=== PATIENT | male | born 1945 | race Hispanic/Latino ===

== ENCOUNTER 2018-02-01 14:50 | Emergency (ER) | payer MEDICARE ==
[~2018-02-01] VITALS: Ht 172.7 cm; Wt 90.7 kg
[~2018-02-01 14:50] MED LIST: ALBUTEROL2.5 MG/3 M INH; CEFDINIR300 MG PO; LACTULOSE10 GM/152 PO; LASIX40 MG PO; LEVAQUIN500 MG PO; LEVOTHYROXINE50 MCG PO; OMEPRAZOLE20 M1 PO; OXYCODONE HCL5 MG PO; PREDNISONE10 MG PO; ROPINIROLE HCL0.5 MG PO; SPIRONOLACTONE100 MG PO; XIFAXAN550 MG PO
== END 2018-02-01 15:50 | disposition short-term general hospital (02) ==
LOC: ER 14:56
DX: M54.9 Dorsalgia, unspecified (principal)

== ENCOUNTER → 2018-11-02 | Emergency (ER) | payer MEDICARE ==
[~2018-11-02] VITALS: Ht 172.7 cm; Wt 90.7 kg
[~2018-11-02] MED LIST changes: +BACTRIM DS TAB1 EACH PO; +CLINDAMYCIN HC300 MG PO; +CLINDAMYCIN PHOS 900MG/ 50ML 50 ML IV STA; +SODIUM CHLORIDE 0.9% 1000ML 1,000 ML IV SCH; +ULTRAM50 MG PO
--- OUTSIDE RECORDS SUMMARY | 2018-11-02 14:59 | XMS REPORT | Clinical Summary ---
Author Author [facility] Address Unknown Phone Unavailable Care Team Providers Care Infrastructure Architect Name Role Phone Ovidio Perez MD PCP Allergies Comments Active Allergy Reactions Severity Noted Date "Goes Crazy" Pregabalin 02/01/2018 Medications End Date Status Medication Sig Dispensed Refills Start Date Active spironolactone Take 100 mg 0 (ALDACTONE) 100 MG tablet by mouth daily. Active rOPINIRole (REQUIP) 2 MG Take 2 mg by 0 tablet mouth 3 (three) times daily. Active levothyroxine (SYNTHROID, Take 50 mcg 0 LEVOTHROID) 50 MCG tablet by mouth Every morning on an empty stomach. Active baclofen (LIORESAL) 10 MG Take 5 mg by 0 tablet mouth 3 (three) times daily as needed . Active lactulose (CHRONULAC) 10 Take 20 g by 0 gram/15 mL (15 mL) mouth 3 solution (three) times daily. Active risedronate (ACTONEL) 150 Take 150 mg 0 MG tablet by mouth every 30 (thirty) days with water on empty stomach, nothing by mouth or lie down for next 30 minutes. . Active tiotropium bromide Inhale 5 mcg 0 (SPIRIVA RESPIMAT) 2.5 by mouth via mcg/actuation Mist inhaler daily as needed . Active fluticasone/salmeterol Inhale by 0 (ADVAIR HFA INHL) mouth via inhaler. Active furosemide (LASIX) 20 MG Take 2 20 tablet 0 tabletIndications: edema tablets (40 9 due to hepatic cirrhosis mg total) by mouth daily. 02/07/2018 Discontinued HYDROcodone-acetaminophen Take 1 tablet 0 (NORCO 10-325) 10-325 mg by mouth per tablet every 6 (six) hours as needed for Pain. 07/22/2018 Discontinued furosemide (LASIX) 20 MG Take 20 mg by 0 tabletIndications: edema mouth 2 (two) due to hepatic cirrhosis times daily. 07/24/2018 Discontinued HYDROcodone-acetaminophen Take 2 80 tablet 0 (NORCO 7.5-325) 7.5-325 tablets by 8 mg per tablet mouth every 6 (six) hours as needed. Max Daily Amount: 8 tablets 07/28/2018 fluconazole (DIFLUCAN) Take 1 tablet 5 tablet 0 200 MG tablet (200 mg 9 total) by mouth daily for 5 days. Active Problems Problem Noted Date Acute exacerbation of chronic obstructive pulmonary disease (COPD) 07/17/2018 LISA on CPAP 07/17/2018 Amputation of left lower extremity below knee 06/14/2015 Tremor 06/14/2015 Cirrhosis of liver without ascites 05/13/2015 Hypothyroidism 05/13/2015 RLS (restless legs syndrome) 05/13/2015 Resolved Problems Problem Noted Date Resolved Date Compression fx, thoracic spine 02/01/2018 07/17/2018 Compression fracture of L3 lumbar vertebra 02/01/2018 07/17/2018 PNA (pneumonia) 02/01/2018 07/17/2018 Encounters Care Team Description Date Type Specialty OfCeline gee MD Ali, MD Wally Leahy Adriana, MD Acute exacerbation of chronic obstructive pulmonary disease (COPD) (HCC) (Primary Dx); Acute congestive heart failure, unspecified heart failure type (HCC) 07/17/2018 [facility] General Internal Medicine - Encounter 07/24/2018 07/17/2018 Orders Only General Internal Medicine 07/16/2018 Travel Virtual, Surgeon PROCEDURE DONE OUTSIDE OR 04/01/2018 Surgery Chaya David 04/01/2018 Anesthesia Event Anson Chowdhury II, MD T12 compression fracture (HCC); Closed compression fracture of third lumbar vertebra, initial encounter (HCC) 04/01/2018 Hospital Encounter Anson Chowdhury II, MD 03/30/2018 Outside Orders Central Scheduling Mercedez Mack PA Closed compression fracture of third lumbar vertebra, initial encounter ([facility]) (Primary Dx); T12 compression fracture (HCC) 03/30/2018 Orders Only Interventional Radiology Anson Chowdhury II, MD Closed compression fracture of third lumbar vertebra, initial encounter ([facility]) (Primary Dx) 03/16/2018 Office Visit Interventional Radiology Antoni Krishnamurthy MD Crooms, MD Nick Estrada, Dulce Dos Santos MD Closed compression fracture of thoracic vertebra, initial encounter ([facility]) (Primary Dx); Closed compression fracture of third lumbar vertebra, initial encounter (HCC); Pneumonia due to infectious organism, unspecified laterality, unspecified part of lung 02/01/2018 [facility] General Internal Medicine - Encounter 02/07/2018 after 11/01/2017 Social History Date Tobacco Use Types Packs/Day Years Used Former Smoker Smokeless Tobacco: Never Used Tobacco Cessation: Counseling Given: No Alcohol Use Drinks/Week oz/Week Comments Yes 2 beers daily Sex Assigned at Date Recorded Not on file Industry Job Start Date Occupation Not on file Not on file Not on file Travel End Travel History Travel Start No recent travel history available. 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 Height 172.7 cm (5' 8") 07/22/2018 7:27 AM CDT Body Mass Index 30.2 Plan of Treatment Not on file Procedures Comments Procedure Name Priority Date/Time Associated Diagnosis RHYTHM STRIP - SCAN 08/08/2018 1:52 PM CDT RHYTHM STRIP - SCAN 07/27/2018 7:10 AM CDT XR CHEST 2 VIEWS STAT 07/23/2018 1:16 PM CDT XR CHEST 1 VIEW Routine 07/22/2018 PORTABLE/BEDSIDE 10:[address] BRAIN WITHOUT IV STAT 07/22/2018 CONTRAST 8:36 PM CDT ECG 12-LEAD Routine 07/22/2018 1:15 PM CDT POCT-GLUCOSE METER Routine 07/22/2018 1:00 PM CDT XR CHEST 1 VIEW MAGDALENA 07/22/2018 PORTABLE/BEDSIDE 10:47 AM CDT POCT-GLUCOSE METER Routine 07/22/2018 8:34 AM CDT CBC W/PLT COUNT & AUTO Routine 07/22/2018 DIFFERENTIAL 4:10 AM CDT BASIC METABOLIC PANEL (7) Routine 07/22/2018 4:10 AM CDT CBC W/PLT COUNT & AUTO Routine 07/22/2018 DIFFERENTIAL 4:10 AM CDT XR CHEST 1 VIEW MAGDALENA 07/21/2018 PORTABLE/BEDSIDE 5:43 PM CDT POCT-GLUCOSE METER Routine 07/21/2018 5:02 PM CDT (CELLAVISION MANUAL DIFF) Routine 07/21/2018 2:12 PM CDT CBC W/PLT COUNT & AUTO Routine 07/21/2018 DIFFERENTIAL 2:12 PM CDT CBC W/PLT COUNT & AUTO Routine 07/21/2018 DIFFERENTIAL 2:12 PM CDT BASIC METABOLIC PANEL (7) Routine 07/21/2018 2:07 PM CDT XR CHEST 1 VIEW STAT 07/21/2018 PORTABLE/BEDSIDE 12:09 PM CDT POCT-GLUCOSE METER Routine 07/21/2018 12:06 PM CDT XR CHEST 1 VIEW STAT 07/21/2018 PORTABLE/BEDSIDE 12:[address] DRAINAGE WITH CHEST Routine 07/20/2018 TUBE INSERTION 11:53 PM CDT XR CHEST PA OR AP 1 VIEW MAGDALENA 07/20/2018 IN DEPT. 7:27 PM CDT XR CHEST PA OR AP 1 VIEW STAT 07/20/2018 IN DEPT. 5:[address] NEEDLE BIOPSY LUNG Routine 07/20/2018 5:16 PM CDT TISSUE EXAM AP Routine 07/20/2018 4:58 PM CDT LACTIC ACID, VENOUS Routine 07/20/2018 1:29 PM CDT AMMONIA Routine 07/20/2018 1:29 PM CDT POCT-GLUCOSE METER Routine 07/20/2018 1:22 PM CDT XR CHEST 1 VIEW STAT 07/20/2018 PORTABLE/BEDSIDE 11:29 AM CDT POCT-GLUCOSE METER Routine 07/20/2018 10:31 AM CDT REPORT OF PROCEDURE - 07/20/2018 ENDOSCOPY SCAN 6:43 AM CDT (CELLAVISION MANUAL DIFF) Routine 07/20/2018 4:19 AM CDT CBC W/PLT COUNT & AUTO Routine 07/20/2018 DIFFERENTIAL 4:19 AM CDT BASIC METABOLIC PANEL (7) Routine 07/20/2018 4:19 AM CDT CBC W/PLT COUNT & AUTO Routine 07/20/2018 DIFFERENTIAL 4:19 AM CDT ECHOCARDIOGRAM REPORT - 07/18/2018 SCAN 9:20 PM CDT 2D ECHO W/ DOPPLER Routine 07/18/2018 (CW/PW/COLOR) 11:16 AM CDT (CELLAVISION MANUAL DIFF) Routine 07/18/2018 3:56 AM CDT CBC W/PLT COUNT & AUTO Routine 07/18/2018 DIFFERENTIAL 3:56 AM CDT TSH/FREE T4 IF INDICATED Routine 07/18/2018 3:56 AM CDT B-TYPE NATRIURETIC FACTOR Routine 07/18/2018 (BNP) 3:56 AM CDT PT/APTT Routine 07/18/2018 3:56 AM CDT CBC W/PLT COUNT & AUTO Routine 07/18/2018 DIFFERENTIAL 3:56 AM CDT MAGNESIUM Routine 07/18/2018 3:56 AM CDT HEMOGLOBIN A1C Routine 07/18/2018 3:56 AM CDT HEPATIC FUNCTION PANEL Routine 07/18/2018 3:56 AM CDT BASIC METABOLIC PANEL (7) Routine 07/18/2018 3:[address] CHEST WITHOUT IV STAT 07/17/2018 CONTRAST 10:01 AM CDT ED ECG INTERPRETATION Routine 07/17/2018 6:35 AM CDT CBC W/PLT COUNT & AUTO STAT 07/17/2018 DIFFERENTIAL 3:55 AM CDT HEPATIC FUNCTION PANEL STAT 07/17/2018 3:55 AM CDT TROPONIN I STAT 07/17/2018 3:55 AM CDT PT/APTT STAT 07/17/2018 3:55 AM CDT CBC W/PLT COUNT & AUTO STAT 07/17/2018 DIFFERENTIAL 3:55 AM CDT B-TYPE NATRIURETIC FACTOR STAT 07/17/2018 (BNP) 3:55 AM CDT BASIC METABOLIC PANEL (7) STAT 07/17/2018 3:55 AM CDT XR CHEST PA OR AP 1 VIEW STAT 07/17/2018 IN DEPT. 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 APPRENTICE [place] Routine 04/01/2018 T12 compression fracture VERTEBROPLASTY/KYPHOPLAST 3:45 PM WATCH REPAIRER APPRENTICE ([facility] Y Closed compression fracture of third lumbar vertebra, initial encounter ([facility]) PROCEDURE DONE OUTSIDE OR 04/01/2018 Compression fracture of 2:00 PM WATCH REPAIRER APPRENTICE lumbosacral spine, sequela Special Needs (PROCEDURE TO BE DONE AT ) BASIC METABOLIC PANEL (7) STAT 04/01/2018 1:55 PM WATCH REPAIRER APPRENTICE CBC W/PLT COUNT & AUTO STAT 04/01/2018 DIFFERENTIAL 1:38 PM WATCH REPAIRER APPRENTICE APTT STAT 04/01/2018 1:38 PM WATCH REPAIRER APPRENTICE PROTHROMBIN TIME/INR STAT 04/01/2018 1:38 PM WATCH REPAIRER APPRENTICE CBC W/PLT COUNT & AUTO STAT 04/01/2018 DIFFERENTIAL 1:38 PM WATCH REPAIRER APPRENTICE ECG 12-LEAD Routine 04/01/2018 11:07 AM WATCH REPAIRER APPRENTICE Procedure Note - Interface, External Ris In - 04/01/2018 11:12 AM WATCH REPAIRER APPRENTICE Ventricula r Rate 65 BPM Atrial Rate 65 BPM P-R Interval 176 ms QRS Duration 106 ms Q-T Interval 450 ms QTC Calculatio n(Bazett) 468 ms P Ashland -22 degrees R Ashland -16 degrees T [place] -36 degrees Normal sinus rhythm with sinus arrhythmia Anterior infarct , age undetermin ed Abnormal ECG No previous ECGs available ECG 12-LEAD Routine 04/01/2018 11:07 AM WATCH REPAIRER APPRENTICE CBC W/PLT COUNT & AUTO Routine 02/06/2018 DIFFERENTIAL 5:09 AM CDT CBC W/PLT COUNT & AUTO Routine 02/06/2018 DIFFERENTIAL 5:09 AM CDT BASIC METABOLIC PANEL (7) Routine 02/06/2018 5:09 AM CDT CBC W/PLT COUNT & AUTO Routine 02/04/2018 DIFFERENTIAL 6:13 PM CDT CBC W/PLT COUNT & AUTO Routine 02/04/2018 DIFFERENTIAL 6:13 PM CDT BASIC METABOLIC PANEL (7) Routine 02/04/2018 6:13 PM CDT CBC W/PLT COUNT & AUTO Routine 02/03/2018 DIFFERENTIAL 4:27 AM CDT CBC W/PLT COUNT & AUTO Routine 02/03/2018 DIFFERENTIAL 4:27 AM CDT BASIC METABOLIC PANEL (7) Routine 02/03/2018 4:27 AM CDT CBC W/PLT COUNT & AUTO Routine 02/02/2018 DIFFERENTIAL 11:36 AM CDT CBC W/PLT COUNT & AUTO Routine 02/02/2018 DIFFERENTIAL 11:36 AM CDT BASIC METABOLIC PANEL (7) Routine 02/02/2018 11:36 AM CDT BLOOD CULTURE STAT 02/01/2018 10:51 PM CDT BLOOD CULTURE STAT 02/01/2018 10:20 PM CDT CBC W/PLT COUNT & AUTO STAT 02/01/2018 DIFFERENTIAL 10:01 PM CDT LIPASE STAT 02/01/2018 10:01 PM CDT HEPATIC FUNCTION PANEL STAT 02/01/2018 10:01 PM CDT CBC W/PLT COUNT & AUTO STAT 02/01/2018 DIFFERENTIAL 10:01 PM CDT BASIC METABOLIC PANEL (7) STAT 02/01/2018 10:[address] SPINE LUMBAR WITHOUT STAT 02/01/2018 IV CONTRAST 8:[address] SPINE THORACIC WITHOUT STAT 02/01/2018 IV CONTRAST 8:58 PM CDT XR SPINE LUMBAR COMPLETE STAT 02/01/2018 MIN 4 VIEWS 6:52 PM CDT after 11/01/2017 Results * RHYTHM STRIP - SCAN (08/08/2018 1:52 PM CDT) Only the most recent of 2 results within the time period is included. Narrative Performed At * XR chest 2 views (07/23/2018 1:16 PM CDT) Specimen Narrative Performed At FINAL REPORT [facility] [employer] INDICATION: SOB COMPARISON: July 22, 2018 TECHNIQUE: Frontal and lateral views of the chest. IMPRESSION: Lungs and pleura: Decreasing conspicuity of patchy airspace disease bilaterally. No effusion. Heart and mediastinum: Normal heart size. Unremarkable mediastinal contours. Osseous structures: No acute abnormality. Additional findings: Stable TIPS. Unchanged right PICC. Signed: JR King Robert MD Report Verified Date/Time:07/23/2018 13:21:07 Reading Location: [address] Neuro Reading Room Procedure Note Interface, External Ris In - 07/23/2018 1:23 PM CDT FINAL REPORT INDICATION: SOB COMPARISON: July 22, 2018 TECHNIQUE: Frontal and lateral views of the chest. IMPRESSION: Lungs and pleura: Decreasing conspicuity of patchy airspace disease bilaterally. No effusion. Heart and mediastinum: Normal heart size. Unremarkable mediastinal contours. Osseous structures: No acute abnormality. Additional findings: Stable TIPS. Unchanged right PICC. Signed: JR King Robert MD Report Verified Date/Time: 07/23/2018 13:21:07 Reading Location: [address] Neuro Reading Room Performing Organization Address City/State/Zipcode Phone Number [facility] * XR chest 1 view portable / bedside (07/22/2018 10:12 PM CDT) Only the most recent of 6 results within the time period is included. Specimen Narrative Performed At FINAL REPORT [employer] Portable chest. HISTORY: Pneumothorax. COMPARISON STUDY: July 22, 2018. FINDINGS: The cardiac silhouette is enlarged. There are extensive bilateral airspace opacities, most dense in the right upper lung field more pronounced on previous. Blunting of the left costophrenic angle is seen. A right-sided PICC line remains. Degenerative changes are noted. A TIPS shunt is seen. IMPRESSION: Progression of pulmonary opacities, either related to CHF or pneumonia. No pneumothorax seen. Signed: Noe Hall MD Report Verified Date/Time:07/22/2018 23:28:09 Reading Location: [facility] C013 Consult Reading Room Procedure Note Interface, External Ris In - 07/22/2018 11:30 PM CDT FINAL REPORT Portable chest. HISTORY: Pneumothorax. COMPARISON STUDY: July 22, 2018. FINDINGS: The cardiac silhouette is enlarged. There are extensive bilateral airspace opacities, most dense in the right upper lung field more pronounced on previous. Blunting of the left costophrenic angle is seen. A right-sided PICC line remains. Degenerative changes are noted. A TIPS shunt is seen. IMPRESSION: Progression of pulmonary opacities, either related to CHF or pneumonia. No pneumothorax seen. Signed: Noe Hall MD Report Verified Date/Time: 07/22/2018 23:28:09 Reading Location: [facility] C013 Consult Reading Room Performing Organization Address City/State/Zipcode Phone Number [employer] * CT brain without IV contrast (07/22/2018 8:36 PM CDT) Specimen Narrative Performed At FINAL REPORT [facility] CT, BRAIN, WITHOUT CONTRAST CLINICAL INDICATION:Confusion/delirium, altered LOC, unexplained COMPARISON: None TECHNIQUE:Noncontrast axial CT imaging of the brain and skull. DOSE REDUCTION: Dose modulation, iterative reconstruction, and/or weight-based adjustment of the mA/kV was utilized to reduce the radiation dose to as low as reasonably achievable. FINDINGS: No intracranial hemorrhage, midline shift or mass effect. Midline structures are normally developed. Mild chronic microvascular ischemic changes of the periventricular and subcortical white matter are present. No hydrocephalus. Prior right lens surgery. Marked left enophthalmos due to increased intraorbital volume related to prior maxillofacial surgery. Plate fixation of the left orbital floor and left lateral orbital wall. Remote fracture of the left zygomatic arch. Cystic lesion at the left anterior zygoma abutting the anterior wall of left maxillary sinus, possibly representing a posttraumatic mucocele status post maxillary repair. Soft tissue lesion cannot be excluded, however, is favored to be less likely. The left intraorbital canal is not well evaluated secondary to the plate reconstruction. IMPRESSION: No acute intracranial findings. Remote reconstruction of the left orbital floor and left lateral orbital wall, favored to be posttraumatic given concomitant remote left zygomatic arch fracture. Cystic lesion at the anterior margin of the zygoma may represent a posttraumatic mucocele status post repair of the orbital floor defect. Soft tissue lesion cannot be definitively excluded, however, is favored to be less likely. Correlation with prior imaging (and history of prior trauma versus prior malignancy) is suggested. Left enophthalmos due to above postsurgical changes with consequent increased intraorbital volume on the left. If there is persistent clinical concern for intracranial pathology, MR examination is recommended for further characterization. Signed: Cheng Baxter MD Report Verified Date/Time:07/22/2018 20:46:26 Reading Location: [facility] Radiology Reading Room Procedure Note Interface, External Ris In - 07/22/2018 8:[address] FINAL REPORT CT, BRAIN, WITHOUT CONTRAST CLINICAL INDICATION: Confusion/delirium, altered LOC, unexplained COMPARISON: None TECHNIQUE: Noncontrast axial CT imaging of the brain and skull. DOSE REDUCTION: Dose modulation, iterative reconstruction, and/or weight-based adjustment of the mA/kV was utilized to reduce the radiation dose to as low as reasonably achievable. FINDINGS: No intracranial hemorrhage, midline shift or mass effect. Midline structures are normally developed. Mild chronic microvascular ischemic changes of the periventricular and subcortical white matter are present. No hydrocephalus. Prior right lens surgery. Marked left enophthalmos due to increased intraorbital volume related to prior maxillofacial surgery. Plate fixation of the left orbital floor and left lateral orbital wall. Remote fracture of the left zygomatic arch. Cystic lesion at the left anterior zygoma abutting the anterior wall of left maxillary sinus, possibly representing a posttraumatic mucocele status post maxillary repair. Soft tissue lesion cannot be excluded, however, is favored to be less likely. The left intraorbital canal is not well evaluated secondary to the plate reconstruction. IMPRESSION: No acute intracranial findings. Remote reconstruction of the left orbital floor and left lateral orbital wall, favored to be posttraumatic given concomitant remote left zygomatic arch fracture. Cystic lesion at the anterior margin of the zygoma may represent a posttraumatic mucocele status post repair of the orbital floor defect. Soft tissue lesion cannot be definitively excluded, however, is favored to be less likely. Correlation with prior imaging (and history of prior trauma versus prior malignancy) is suggested. Left enophthalmos due to above postsurgical changes with consequent increased intraorbital volume on the left. If there is persistent clinical concern for intracranial pathology, MR examination is recommended for further characterization. Signed: Cheng Baxter MD Report Verified Date/Time: 07/22/2018 20:46:26 Reading Location: [facility] Radiology Reading Room Performing Organization Address City/State/Zipcode Phone Number [facility] * ECG 12 lead (07/22/2018 1:15 PM CDT) Only the most recent of 4 results within the time period is included. Specimen Narrative Performed At Ventricular Rate 101 BPM [facility] Atrial Rate 101 BPM P-R Interval 162 ms QRS Duration 100 ms Q-T Interval 376 ms QTC Calculation(Bazett) 487 ms P Ash[place] 5 degrees R Ash[place] -11 degrees T Ash[place] 9 degrees Sinus tachycardia Incomplete right bundle branch block Poor R wave progression Nonspecific T wave abnormality Prolonged QT Abnormal ECG When compared with ECG of 17-JUL-2018 03:13, Vent. rate has increased BY39 BPM Poor R wave progression now seen T wave inversion less evident in Anterior leads Confirmed by MD PHONG, [facility] ([id number]) on 07/25/2018 6:33:06 AM Procedure Note Interface, External Ris In - 07/25/2018 6:33 AM CDT Ventricular Rate 101 BPM Atrial Rate 101 BPM P-R Interval 162 ms QRS Duration 100 ms Q-T Interval 376 ms QTC Calculation(Bazett) 487 ms P [place] 5 degrees R [place] -11 degrees T [place] 9 degrees Sinus tachycardia Incomplete right bundle branch block Poor R wave progression Nonspecific T wave abnormality Prolonged QT Abnormal ECG When compared with ECG of 17-JUL-2018 03:13, Vent. rate has increased BY 39 BPM Poor R wave progression now seen T wave inversion less evident in Anterior leads Confirmed by MD PHONG, HEIDI ([id number]) on 07/25/2018 6:33:06 AM Performing Organization Address City/State/Zipcode Phone Number [facility] * POC-Glucose meter (07/22/2018 1:00 PM CDT) Only the most recent of 6 results within the time period is included. POC-Glucose Meter 106Comment: TESTED AT [facility] 70 - 110 mg/dL [address] Specimen Blood Performing Organization Address [facility] [place] [address] [facility] * CBC with platelet count + automated diff (07/22/2018 4:10 AM CDT) Only the most recent of 11 results within the time period is included. WBC 16.3 (H) 3.5 - 10.5 K/L [facility] RBC 4.06 (L) 4.63 - 6.08 M/L [facility] Hemoglobin 14.5 13.7 - 17.5 GM/DL [facility] Hematocrit 43.1 40.1 - 51.0 % [facility] MCV 106.2 (H) 79.0 - 92.2 fL [facility] MCH 35.7 (H) 25.7 - 32.2 pg [facility] MCHC 33.6 32.3 - 36.5 GM/DL [facility] RDW 13.7 11.6 - 14.4 % [facility] Platelets 127 (L) 150 - 450 K/CU MM [facility] MPV 11.3 9.4 - 12.4 fL [facility] nRBC 0 0 - 0 /100 WBC [facility] % Neutros 73 % [facility] % Lymphs 14 % [facility] % Monos 11 % [facility] % Eos 0 % [facility] % Baso 0 % [facility] # Neutros 11.85 (H) 1.78 - 5.38 K/L [facility] # Lymphs 2.24 1.32 - 3.57 K/L [facility] # Monos 1.85 (H) 0.30 - 0.82 K/L [facility] # Eos 0.03 (L) 0.04 - 0.54 K/L [facility] # Baso 0.06 0.01 - 0.08 K/L [facility] Immature 1 0 - 1 % [facility] Granulocytes-[facility] Specimen Blood Performing Organization Address City/State/Zipcode Phone Number [facility] [address] [place] [address] [facility] * Basic Metabolic Panel (07/22/2018 4:10 AM CDT) Only the most recent of 11 results within the time period is included. Sodium 132 (L) 136 - 145 meq/L [facility] Potassium 4.1 3.5 - 5.1 meq/L [facility] Chloride 102 98 - 107 meq/L [facility] CO2 22 22 - 29 meq/L [facility] BUN 17 7 - 21 mg/dL [facility] Creatinine 0.84 0.57 - 1.25 mg/dL [facility] Glucose 144 (H) 70 - 105 mg/dL [facility] Calcium 7.9 (L) 8.4 - 10.2 mg/dL [facility] EGFR 89Comment: ESTIMATED GFR IS mL/min/1.73 sq m [facility] NOT ACCURATE CREATININE [facility] CLEARANCE IN PREDICTING GLOMERULAR FILTRATION RATE. ESTIMATED GFR IS NOT APPLICABLE FOR DIALYSIS PATIENTS. Specimen Blood Narrative Performed At Specimen slightly icteric [facility] Performing Organization Address City/State/Zipcode Phone Number [facility] [address] [place] [address] MED[facility] * Manual Differential (07/21/2018 2:12 PM CDT) Only the most recent of 3 results within the time period is included. % Neutros 87 % [facility] % Lymphs 5 % [facility] [facility] % Monos 6 % [facility] % Atypical Lymphs 1 (H) 0 - 0 % [facility] # Neutros 17.23 (H) 1.78 - 5.38 K/ul [facility] # Lymphs 0.99 (L) 1.32 - 3.57 K/ul [facility] # Monos 1.19 (H) 0.30 - 0.82 K/uL [facility] # Atypical Lymphs 0.20 (H) 0.00 - 0.00 K/uL [facility] Total Counted 100 [facility] Giant Platelet Present [facility] Hypersegmented Present [facility] Anisocytosis 3+ many [facility] Macrocytes 3+ many [facility] Poikilocytes 1+ few [facility] Ovalocytes 1+ few [facility] Artifact Present [facility] Platelet Conc Adequate [facility] Specimen Blood Narrative Performed At Received comment: [facility] User comments: [facility] Slide comments: Performing Organization Address City/State/Zipcode Phone Number [facility] [address] [place] [address] MEDICAL [facility]ENTER * CT drainage with chest tube insertion (07/20/2018 11:53 PM CDT) Specimen Narrative Performed At FINAL REPORT [employer] PROCEDURE: Right chest tube insertion. Dose modulation, iterative reconstruction, and/or weight-based adjustment of the mA/kV was utilized to reduce the radiation dose to as low as reasonably achievable. INDICATION: Enlarging pneumothorax after lung biopsy. COMPARISON: CT for biopsy from 07/17/2018. SEDATION: None. MEDICATIONS: None DESCRIPTION: After obtaining informed written consent, the patient was brought to the procedure room and placed in the supine position. Preliminary CT scan revealed a moderate size right pneumothorax. A clear path for chest tube insertion was identified. The overlying skin was prepped and draped in the usual, sterile fashion and local 1% lidocaine anesthesia was administered. Under CT guidance, a 19-gauge introducer needle was placed into the right hemithorax. Air was aspirated. A wire was introduced into the pleural cavity, and after dilation with an 8 Botswanan dilator, an 8 Botswanan catheter was inserted into the pleural cavity. The catheter was affixed to the skin and connected to wall suction. Post procedure scan showed no immediate complications. The chest radiograph after placement was obtained since the patient was having pain. The right pneumothorax has near completely resolved. The right upper lobe mass is again seen. The cardiac silhouette is unchanged. No acute bony abnormality. TIPS in the right upper quadrant. IMPRESSION: Successful placement of a right chest pigtail pleural catheter. The chest radiograph after placement of the pigtail pleural catheter has only minimal residual right pneumothorax. Signed: Monico Bee MD Report Verified Date/Time:07/21/2018 00:43:30 Reading Location: [facility] B1 C013W Consult Reading Room Procedure Note Interface, External Ris In - 07/21/2018 12:54 AM CDT FINAL REPORT PROCEDURE: Right chest tube insertion. Dose modulation, iterative reconstruction, and/or weight-based adjustment of the mA/kV was utilized to reduce the radiation dose to as low as reasonably achievable. INDICATION: Enlarging pneumothorax after lung biopsy. COMPARISON: CT for biopsy from 07/17/2018. SEDATION: None. MEDICATIONS: None DESCRIPTION: After obtaining informed written consent, the patient was brought to the procedure room and placed in the supine position. Preliminary CT scan revealed a moderate size right pneumothorax. A clear path for chest tube insertion was identified. The overlying skin was prepped and draped in the usual, sterile fashion and local 1% lidocaine anesthesia was administered. Under CT guidance, a 19-gauge introducer needle was placed into the right hemithorax. Air was aspirated. A wire was introduced into the pleural cavity, and after dilation with an 8 Botswanan dilator, an 8 Botswanan catheter was inserted into the pleural cavity. The catheter was affixed to the skin and connected to wall suction. Post procedure scan showed no immediate complications. The chest radiograph after placement was obtained since the patient was having pain. The right pneumothorax has near completely resolved. The right upper lobe mass is again seen. The cardiac silhouette is unchanged. No acute bony abnormality. TIPS in the right upper quadrant. IMPRESSION: Successful placement of a right chest pigtail pleural catheter. The chest radiograph after placement of the pigtail pleural catheter has only minimal residual right pneumothorax. Signed: Monico Bee MD Report Verified Date/Time: 07/21/2018 00:43:30 Reading Location: [address] Consult Reading Room Performing Organization Address City/State/Zipcode Phone Number [facility] * XR chest PA or AP 1 view in dept (07/20/2018 7:27 PM CDT) Only the most recent of 3 results within the time period is included. Specimen Narrative Performed At FINAL REPORT [facility] [employer] Chest, one view. HISTORY: Post Lung Biopsy COMPARISON: Radiograph from 07/20/2018 IMPRESSION: The right pneumothorax has significantly increased in size. However, it is still small volume. The patient is being brought down for placement of a chest tube. The right upper lung nodule is unchanged. TIPS in place. The cardiac silhouette is unchanged. No acute bony abnormality. Signed: Monico Bee MD Report Verified Date/Time:07/20/2018 19:55:59 Reading Location: [address] Consult Reading Room Procedure Note Interface, External Ris In - 07/20/2018 7:58 PM CDT FINAL REPORT Chest, one view. HISTORY: Post Lung Biopsy COMPARISON: Radiograph from 07/20/2018 IMPRESSION: The right pneumothorax has significantly increased in size. However, it is still small volume. The patient is being brought down for placement of a chest tube. The right upper lung nodule is unchanged. TIPS in place. The cardiac silhouette is unchanged. No acute bony abnormality. Signed: Monico Bee MD Report Verified Date/Time: 07/20/2018 19:55:59 Reading Location: [address] Consult Reading Room Performing Organization Address City/State/Zipcode Phone Number [employer] * CT biopsy lung (07/20/2018 5:16 PM CDT) Specimen Narrative Performed At FINAL REPORT [employer] CT-guided core biopsy dated 07/20/2018 Name of practitioner performing procedure: Nick Gonsales M.D. Names of photographer's assistant: None Procedure: Core biopsy of the right upper lobe mass Preprocedure diagnosis: Right upper lobe mass Postprocedure diagnosis: Right upper lobe mass Specimens removed: Right upper lobe mass Estimated blood loss: Minimal Complication: Tiny right apical pneumothorax. Sequential chest examinations has been ordered. Conscious sedation: 1 mg Versed and [address] Nick Gonsales was responsible for the moderate sedation. Total sedation time: 20 minutes Anesthesia: 1% Xylocaine local anesthesia. Graft/Implants: None Technique: This exam was performed according to our departmental dose-optimization program, which includes automated exposure control, adjustment of the mA and/or kV according to patient size and/or use of interactive reconstruction technique. After obtaining informed consent, CT-guided core biopsy of the right upper lobe mass was performed under usual sterile technique. After placing a 19-gauge coaxial needle adjacent to the mass, core biopsy was performed with a 20-gauge core needle with 4 passes. Impression: CT-guided core biopsy of the right upper lobe mass. Signed: Nick Gonsales MD Report Verified Date/Time:07/20/2018 18:11:12 Reading Location: [facility] B1 C013Y CT Body Reading Room Procedure Note Interface, External Ris In - 07/20/2018 6:13 PM CDT FINAL REPORT CT-guided core biopsy dated 07/20/2018 Name of practitioner performing procedure: Nick Gonsales M.D. Names of photographer's assistant: None Procedure: Core biopsy of the right upper lobe mass Preprocedure diagnosis: Right upper lobe mass Postprocedure diagnosis: Right upper lobe mass Specimens removed: Right upper lobe mass Estimated blood loss: Minimal Complication: Tiny right apical pneumothorax. Sequential chest examinations has been ordered. Conscious sedation: 1 mg Versed and [address] Nick Gonsales was responsible for the moderate sedation. Total sedation time: 20 minutes Anesthesia: 1% Xylocaine local anesthesia. Graft/Implants: None Technique: This exam was performed according to our departmental dose-optimization program, which includes automated exposure control, adjustment of the mA and/or kV according to patient size and/or use of interactive reconstruction technique. After obtaining informed consent, CT-guided core biopsy of the right upper lobe mass was performed under usual sterile technique. After placing a 19-gauge coaxial needle adjacent to the mass, core biopsy was performed with a 20-gauge core needle with 4 passes. Impression: CT-guided core biopsy of the right upper lobe mass. Signed: Nick Gonsales MD Report Verified Date/Time: 07/20/2018 18:11:12 Reading Location: [facility] B1 C013Y CT Body Reading Room Performing Organization Address City/State/Zipcode Phone Number [facility] * Tissue Exam (07/20/2018 4:58 PM CDT) Case Report Surgical Pathology [facility] Report [facility] Case: [id number] Authorizing Provider:Janeth Skaggs MD Collected: 07/20/2018 9100 Ordering Location: [address] Received: 07/20/2018 3597 Cardiovascular Pathologist: Wilbur Najera MD Specimen:Lung, Right Upper Lobe DIAGNOSIS A. LUNG, RIGHT UPPER LOBE, CT [facility] GUIDED NEEDLE CORE BIOPSY: [facility] - ACUTE BRONCHOPNEUMONIA AND ABSCESS FORMATION (SEE COMMENT) - SUSPICIOUS FOR FUNGAL INFECTION - NEGATIVE FOR MALIGNANCY Signing Pathologist Direct Phone Line: [phone] COMMENT Section shows a single [facility] fragment of alveolated lung [facility] parenchyma with detached foci of fibrinopurulent exudate. The alveolar pneumocytes are replaced by ciliated bronchial type lining epithelium. No granulomas or malignancy is identified. Special stain for GMS shows fungal hyphal elements. The exact species cannot be definitively determined on histology but differentials include taco, aspergillus, rhizopus, mucor amongst others. AFB stain is negative for acid-fast micro-organisms. Correlation with cultures and serology is recommended. CPT Code(s) 26868 [facility] [id number] [facility] CLINICAL HISTORY None given [facility] SPECIMEN SOURCE Right upper lobe lung biopsy [facility] GROSS DESCRIPTION The specimen is received in a [facility] formalin-filled container [facility] labeled with the patient's information and labeled "right upper lobe lung" and consists of five whittaker core biopsies ranging in length from 0.1 to 0.5 cm, submitted entirely in A1. CG/ew MICROSCOPIC DESCRIPTION Performed. [facility] SPECIAL STUDIES The interpretation of this [facility] case included the use of [facility] immunohistochemistry or special stains. Immunohistochemistry technical testing was performed at [facility] Path[facility] where it was developed and its performance characteristics were determined. It has not been cleared or approved by the U.S. Food and Drug Administration. The FDA has determined that such clearance or approval is not necessary. The test is used for clinical purposes. It should not be regarded as investigational or for research. This laboratory is certified under the Clinical Laboratory Improvement Amendments of 1988 (CLIA-88) as qualified to perform high complexity clinical laboratory testing. Specimen Tissue Performing Organization Address City/State/Zipcode Phone Number [facility] [address] [place] [address] [facility] * Lactic acid, venous (07/20/2018 1:29 PM CDT) Lactate, Venous 1.4Comment: Specimen slightly 0.5 - 2.2 mmol/L [facility] hemolyzed [facility] Specimen Blood Narrative Performed At Specimen slightly icteric [facility] Performing Organization Address City/State/Zipcode Phone Number [facility] [address] [place] [address], [place] [address] [phone] * Ammonia (07/20/2018 1:29 PM CDT) Ammonia 89 (H) 18 - 72 mol/L [facility] Specimen Blood Performing Organization Address City/[facility]/Zipcode Phone Number [facility] [address] [phone] * EKG-SCANNED (07/20/2018 6:43 AM CDT) Narrative Performed At * ECHOCARDIOGRAM REPORT - SCAN (07/18/2018 9:20 PM CDT) Narrative Performed At * 2D Echo W/Doppler(CW/PW/Color) (07/18/2018 11:16 AM CDT) Ejection Fraction [facility] ECHO [facility]ART[facility] Specimen Narrative Performed At Transthoracic Echocardiography Report (TTE) [facility] ECHO [facility]ARTLAB Demographics [facility] Patient NameAMANUEL NEIL Date of Study07/18/2018 Gender Male Visit [id number] Race [id number] Number Date of 1945 Referring PhysicianSherri Lo Age 72 year(s) SonographEvita Osorio [facility] Interpreting Adal Chin MD Physician Procedure Type of Study TTE procedure:2DECHO W DOPPLER(CW/PW/COLOR) (Routine) Indications:Shortness of breath. Clinical History HGB 13.8 HCT 41.0 % L. BKA, CIRRHOSIS, COPD, HEPATIC ENCEPHALOPATHY, HCV, HYPOTHYROID, COPD, LISA-CPAP Height: 68 inches Weight: 99.34 kg (219 lbs) BSA: 2.12 m^2 BMI: 33.3 kg/m^2 HR: 65 bpm BP: 126/68 mmHg Summary Normal left ventricular chamber size. Normal wall thickness. Normal overall left ventricular systolic function. No apparent segmental wall motion abnormalities. Estimated LVEF by qualitative assessment is normal (>60%) . Grade 1 diastolic dysfunction (impaired relaxation and low-normal LA pressure). RV chamber size is moderately enlarged . Global RV systolic function is depressed . Unable to estimate peak systolic PA pressure; inadequate TR velocity signal. Signature Findings Left Ventricle Normal left ventricular chamber size. Normal wall thickness. Normal overall left ventricular systolic function. No apparent segmental wall motion abnormalities. Estimated LVEF by qualitative assessment is normal (>60%) . Grade 1 diastolic dysfunction (impaired relaxation and low-normal LA pressure). Left AtriumLA size is moderately enlarged (42-48 ml/m2) . Right VentricleRV chamber size is moderately enlarged . Global RV systolic function is depressed . Right Atrium RA size is moderately dilated. Aortic Valve Mild AoV cusp thickening. Mitral Valve Mild MV leaflet thickening. Mild mitral annular calcification. Tricuspid ValveTV structure is normal. Unable to estimate peak systolic PA pressure; inadequate TR velocity signal. Pulmonic Valve PV is not well visualized; function appears normal by Doppler visualized. AortaAortic root size (SInus of Valsalva diameter) is normal . PericardiumNo pericardial effusion is visualized. IVC/SVC/PA/PV/PleuralThe estimated RA pressure by IVC dynamics 5-10mmHg . Chambers/Structures Left Atrium LA Volume: 100.52 mlLA Area: 29.15 cm^2 LA Vol. Index: 47 ml/m^2 Left Ventricle LVIDd: 5.24 cm LVIDs: 3.29 cm LV Septum Diastolic: 0.98 cm LV PW Diastolic: 1.04 cm LV FS: 37.2 % LVOT Diameter: 2 cm Aorta Ao Root S of Chiquita.: 3.56 cm Doppler/Quantitative Measurements LVOT Peak Velocity: 1.35 m/s Peak Gradient: 7.33 mmHg Mean Velocity: 0.74 m/s Mean Gradient: 2.74 mmHg LVOT Diameter: 2 cm LVOT VTI: 24.7 cm LVOT Area: 3.14 cm^2LVOT SV:77.56 ml LVOT CO: 5.04 l/min LVOT CI: 2.38 l/min/m^2 Procedure Note Interface, External Ris In - 07/18/2018 3:02 PM CDT Transthoracic Echocardiography Report (TTE) Demographics Patient Name AMANUEL NEIL Date of Study 07/18/2018 Gender Male Visit Number [id number] Race Room Number C625-2 Number Date of 1945 Referring Physician Sherri Lo Age 72 year(s) 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 Clinical History HGB 13.8 HCT 41.0 % L. BKA, CIRRHOSIS, COPD, HEPATIC ENCEPHALOPATHY, HCV, HYPOTHYROID, COPD, LISA-CPAP Height: 68 inches Weight: 99.34 kg (219 lbs) BSA: 2.12 m^2 BMI: 33.3 kg/m^2 HR: 65 bpm BP: 126/68 mmHg Summary Normal left ventricular chamber size. Normal wall thickness. Normal overall left ventricular systolic function. No apparent segmental wall motion abnormalities. Estimated LVEF by qualitative assessment is normal (>60%) . Grade 1 diastolic dysfunction (impaired relaxation and low-normal LA pressure). RV chamber size is moderately enlarged . Global RV systolic function is depressed . Unable to estimate peak systolic PA pressure; inadequate TR velocity signal. Signature Findings Left Ventricle Normal left ventricular chamber size. Normal wall thickness. Normal overall left ventricular systolic function. No apparent segmental wall motion abnormalities. Estimated LVEF by qualitative assessment is normal (>60%) . Grade 1 diastolic dysfunction (impaired relaxation and low-normal LA pressure). Left Atrium LA size is moderately enlarged (42-48 ml/m2) . Right Ventricle RV chamber size is moderately enlarged . Global RV systolic function is depressed . Right Atrium RA size is moderately dilated. Aortic Valve Mild AoV cusp thickening. Mitral Valve Mild MV leaflet thickening. Mild mitral annular calcification. Tricuspid Valve TV structure is normal. Unable to estimate peak systolic PA pressure; inadequate TR velocity signal. Pulmonic Valve PV is not well visualized; function appears normal by Doppler visualized. Aorta Aortic root size (SInus of Valsalva diameter) is normal . Pericardium No pericardial effusion is visualized. IVC/SVC/PA/PV/Pleural The estimated RA pressure by IVC dynamics 5-10mmHg . Chambers/Structures Left Atrium LA Volume: 100.52 ml LA Area: 29.15 cm^2 LA Vol. Index: 47 ml/m^2 Left Ventricle LVIDd: 5.24 cm LVIDs: 3.29 cm LV Septum Diastolic: 0.98 cm LV PW Diastolic: 1.04 cm LV FS: 37.2 % LVOT Diameter: 2 cm Aorta Ao Root S of Chiquita.: 3.56 cm Doppler/Quantitative Measurements LVOT Peak Velocity: 1.35 m/s Peak Gradient: 7.33 mmHg Mean Velocity: 0.74 m/s Mean Gradient: 2.74 mmHg LVOT Diameter: 2 cm LVOT VTI: 24.7 cm LVOT Area: 3.14 cm^2 LVOT SV:77.56 ml LVOT CO: 5.04 l/min LVOT CI: 2.38 l/min/m^2 Performing Organization Address City/State/Zipcode Phone Number [facility] * TSH/Free T4 If Indicated (07/18/2018 3:56 AM CDT) TSH 0.49 0.35 - 4.94 uIU/mL [facility] Specimen Blood Performing Organization Address [facility] Cent[facility] Phone Number [address] [address] [facility] * PT/aPTT (07/18/2018 3:56 AM CDT) Only the most recent of 2 results within the time period is included. Protime 18.1 (H) 11.7 - 14.7 seconds [facility] INR 1.5 <=5.9 [facility] PTT 34.3 22.5 - 36.0 seconds [facility] Specimen Blood Narrative Performed At RECOMMENDED COUMADIN/WARFARIN INR THERAPY RANGES [facility] STANDARD DOSE: 2.0 - 3.0 Includes: PROPHYLAXIS for venous thrombosis, [facility] systemic embolization; TREATMENT for venous thrombosis and/or pulmonary embolus. HIGH RISK: Target INR is 2.5-3.5 for patients with mechanical heart valves. Performing Organization Address [facility] [place] [address] [phone] [place] [address] * B-type Natriuretic Factor (BNP) (07/18/2018 3:56 AM CDT) Only the most recent of 2 results within the time period is included. BNP 214 (H) 0 - 100 pg/mL [facility] Specimen Blood Performing Organization Address City/[facility] Centercode Phone Number [address] [address] [facility] * Magnesium (07/18/2018 3:56 AM CDT) Magnesium 2.1 1.6 - 2.6 mg/dL [facility] Specimen Blood Performing Organization Address [facility] Cent[facility]ode Phone Number [address] [address] [facility] * Hemoglobin A1c (07/18/2018 3:56 AM CDT) Hemoglobin A1C 5.0 4.3 - 6.1 % [facility] Specimen Blood Performing Organization Address City/State/Zipcode Phone Number [facility] [address] [place] [address] * Hepatic function panel (07/18/2018 3:56 AM CDT) Only the most recent of 3 results within the time period is included. Protein, Total 6.5 6.0 - 8.3 gm/dL [facility] Albumin 3.0 (L) 3.5 - 5.0 g/dL [facility] Total Bilirubin 1.7 (H) 0.2 - 1.2 mg/dL [facility] Bilirubin, Direct 0.9 (H) 0.1 - 0.5 mg/dL [facility] Alkaline Phosphatase 158 (H) 40 - 150 U/L [facility] AST 18 5 - 34 U/L [facility] ALT 30 6 - 55 U/L [facility] Specimen Blood Performing Organization Address City/State/Zipcode Phone Number [facility] [address] [place] [address] [facility] * CT chest without IV contrast (07/17/2018 10:01 AM CDT) Specimen Narrative Performed At FINAL REPORT [facility] INDICATION: Shortness of breath, suspect cardiac origin. COMPARISON: Chest radiograph July 17, 2018 TECHNIQUE: Chest CT exam WITHOUT intravenous contrast. The exam was performed according to our department dose-optimization protocol, which includes automated exposure control, adjustments of mA and kV according to patient size. Iterative reconstructions are also sometimes employed. FINDINGS: In the right upper lobe there is a part solid and part groundglass nodule with an irregular margin. It measures 2.8 x 2.4 cm and anterior and superior to the nodule is groundglass opacity which may represent a lepidic growth. Groundglass nodular opacity in the left upper lobe is also noted. There is cardiomegaly with the left atrium AP dimension measuring 5.1 cm. The pulmonary arteries are enlarged. Main pulmonary artery measures 3.7 cm in diameter, which compares to the ascending thoracic aorta which measures 3.6 cm in diameter. No mediastinal or hilar lymphadenopathy is demonstrated. Central airways are clear. There is no pleural effusion. Esophagus unremarkable. Intrahepatic portosystemic shunt, cirrhosis, and gallstones noted. Osseous structures are notable for diffuse osteopenia and seem and augmentation of moderate compression fracture of the L1 vertebral body. IMPRESSION: Right upper lobe 2.8 cm subsolid nodule with irregular margin, suspicious for lung cancer especially if the patient does not have symptoms of pneumonia. Adjacent groundglass opacity may represent lepidic growth. Left upper lobe groundglass opacity may also represent neoplasm. Considered less likely is inflammatory etiology (sarcoidosis). PET/CT may provide additional diagnostic information. Image guided percutaneous biopsy might also be considered. Cardiomegaly and enlarged pulmonary arteries, indicating pulmonary artery hypertension. Signed: Magan Cardona MD Report Verified Date/Time:07/17/2018 10:36:26 Reading Location: [address] Ortho Consult Reading Room Procedure Note Interface, External Ris In - 07/17/2018 10:38 AM CDT FINAL REPORT INDICATION: Shortness of breath, suspect cardiac origin. COMPARISON: Chest radiograph July 17, 2018 TECHNIQUE: Chest CT exam WITHOUT intravenous contrast. The exam was performed according to our department dose-optimization protocol, which includes automated exposure control, adjustments of mA and kV according to patient size. Iterative reconstructions are also sometimes employed. FINDINGS: In the right upper lobe there is a part solid and part groundglass nodule with an irregular margin. It measures 2.8 x 2.4 cm and anterior and superior to the nodule is groundglass opacity which may represent a lepidic growth. Groundglass nodular opacity in the left upper lobe is also noted. There is cardiomegaly with the left atrium AP dimension measuring 5.1 cm. The pulmonary arteries are enlarged. Main pulmonary artery measures 3.7 cm in diameter, which compares to the ascending thoracic aorta which measures 3.6 cm in diameter. No mediastinal or hilar lymphadenopathy is demonstrated. Central airways are clear. There is no pleural effusion. Esophagus unremarkable. Intrahepatic portosystemic shunt, cirrhosis, and gallstones noted. Osseous structures are notable for diffuse osteopenia and seem and augmentation of moderate compression fracture of the L1 vertebral body. IMPRESSION: Right upper lobe 2.8 cm subsolid nodule with irregular margin, suspicious for lung cancer especially if the patient does not have symptoms of pneumonia. Adjacent groundglass opacity may represent lepidic growth. Left upper lobe groundglass opacity may also represent neoplasm. Considered less likely is inflammatory etiology (sarcoidosis). PET/CT may provide additional diagnostic information. Image guided percutaneous biopsy might also be considered. Cardiomegaly and enlarged pulmonary arteries, indicating pulmonary artery hypertension. Signed: Magan Cardona MD Report Verified Date/Time: 07/17/2018 10:36:26 Reading Location: [facility] [id number] Ortho Consult Reading Room Performing Organization Address City/State/Zipcode Phone Number [place] RIS * ECG/EKG Interpretation (07/17/2018 6:35 AM CDT) Narrative Performed At Celine Vázquez MD 07/17/20186:44 AM ECG/EKG Interpretation Date/Time: 07/17/2018 6:41 AM Performed by: Celien Vázquez MD Authorized by: Celine Vázquez MD The ECG was interpreted by ED physician. The ECG is interpreted as sinus rhythm. Rate is normal rate. Heart rate is 62 BPM. Conduction: conduction normal. ST segments abnormal. ST depression in lead(s) V3. T waves abnormal. T-wave inversion in lead(s) V1, V2, V3 and III. [place] is normal. Clinical Impression: abnormal ECG * Troponin I (07/17/2018 3:55 AM CDT) Troponin I <0.01 0.00 - 0.03 ng/mL [facility] Specimen Blood Narrative Performed At Troponin I (TnI) levels must be interpreted in the context of the presenting [facility] symptoms and the clinical findings. Elevated TnI levels indicate myocardial [facility] damage, but are not specific for ischemic heart disease. Elevated TnI levels are seen in patients with other cardiac conditions (including myocarditis and congestive heart failure), and slight TnI elevations occur in patients with other conditions, including sepsis, renal failure, acidosis, acute neurological disease, and persistent tachyarrhythmia. 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 PROCEDURE: Following informed written consent, general endotracheal anesthesia was performed by the anesthesiology service and the patient was placed in a prone position on the angiographic table. The lower back was prepped and draped in the usual sterile manner. 2% lidocaine was given locally for anesthesia. Using a bilateral posterior transpedicular approach and fluoroscopic guidance, the access needles were placed into the T12 and L3 vertebral bodies. Tracts were drilled through each cannula into the T12 and L3 vertebral bodies. Vertebral augmentation balloons were placed through the access cannulas and inflated bilaterally. The balloons were deflated, removed and a total of 5 cc of methyl methacrylate was infused into the T12 and L3 vertebral bodies under constant fluoroscopic visualization. The cannulas were then removed and the access sites closed with Steri-Strips. Sterile bandages were applied and the patient was transferred from the department in stable condition. There were no immediate complications. FINDINGS: Images obtained during the procedure show the access needles, cannulas and balloons in expected positions within the T12 and L3 vertebral bodies. Following methacrylate infusion, adequate distribution is seen within the T12 and L3 vertebral bodies without extravasation. IMPRESSION: 1. Technically successful T12 and L3 percutaneous vertebral augmentation. No immediate complications. 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 PROCEDURE: Following informed written consent, general endotracheal anesthesia was performed by the anesthesiology service and the patient was placed in a prone position on the angiographic table. The lower back was prepped and draped in the usual sterile manner. 2% lidocaine was given locally for anesthesia. Using a bilateral posterior transpedicular approach and fluoroscopic guidance, the access needles were placed into the T12 and L3 vertebral bodies. Tracts were drilled through each cannula into the T12 and L3 vertebral bodies. Vertebral augmentation balloons were placed through the access cannulas and inflated bilaterally. The balloons were deflated, removed and a total of 5 cc of methyl methacrylate was infused into the T12 and L3 vertebral bodies under constant fluoroscopic visualization. The cannulas were then removed and the access sites closed with Steri-Strips. Sterile bandages were applied and the patient was transferred from the department in stable condition. There were no immediate complications. FINDINGS: Images obtained during the procedure show the access needles, cannulas and balloons in expected positions within the T12 and L3 vertebral bodies. Following methacrylate infusion, adequate distribution is seen within the T12 and L3 vertebral bodies without extravasation. IMPRESSION: 1. Technically successful T12 and L3 percutaneous vertebral augmentation. No immediate complications. Total fluoroscopy time: 23.9 mins Estimated dose reported as (Ka,r): 1933 mGy Signed: Anson Chowdhury MD Report Verified Date/Time: 05/31/2018 15:41:50 Reading Location: [place] [id number] Angio Body Reading Room Performing Organization Address City/State/Zipcode Phone Number [facility] * aPTT (04/01/2018 1:38 PM WATCH REPAIRER APPRENTICE) PTT 34.0 22.5 - 36.0 seconds [facility] Specimen Blood Performing Organization Address City/State/Zipcode Phone Number [address] [address] [facility] * Prothrombin time/INR (04/01/2018 1:38 PM WATCH REPAIRER APPRENTICE) Protime 18.6 (H) 11.7 - 14.7 seconds [facility] INR 1.6 <=5.9 [facility] Specimen Blood Narrative Performed At RECOMMENDED COUMADIN/WARFARIN INR THERAPY RANGES [facility] STANDARD DOSE: 2.0 - 3.0 Includes: PROPHYLAXIS for venous thrombosis, [facility] systemic embolization; TREATMENT for venous thrombosis and/or pulmonary embolus. HIGH RISK: Target INR is 2.5-3.5 for patients with mechanical heart valves. Performing Organization Address City/[facility]/Zipcode Phone Number [address] [address] [facility] * Blood culture (02/01/2018 10:51 PM CDT) Only the most recent of 2 results within the time period is included. Result No growth in 5 days [facility] Specimen Blood Performing Organization Address City/[facility] Phone Number [address] [address] [facility] * Lipase (02/01/2018 10:01 PM CDT) Lipase 21 8 - 78 U/L [facility] Specimen Blood Narrative Performed At Specimen slightly icteric [facility] Performing Organization Address City/[facility] [place] [address] [facility] * CT spine lumbar without IV contrast (02/01/2018 8:58 PM CDT) Specimen Narrative Performed At FINAL REPORT [facility] CT, SPINE, LUMBAR, WO CONTRAST INDICATION: BACK PAIN back pain COMPARISON: Correlation plain film series of the same date. TECHNIQUE: Contiguous noncontrast axial images of the lumbar spine are obtained. Computer reformatted coronal and sagittal images are also provided. Axial images are available in both bone and soft tissue algorithm. DOSE REDUCTION: Dose modulation, iterative reconstruction, and/or weight-based adjustment of the mA/kV was utilized to reduce the radiation dose to as low as reasonably achievable. FINDINGS: Acute to early subacute inferior endplate compression fracture at the L3 vertebral body. Approximately 50% height loss. There is minimal canal retropulsion (approximately 2 mm) without critical canal narrowing. No foraminal compromise is developed. Overall bone stock is demineralized throughout the axial skeleton. No aggressive lesions are present. Multilevel degenerative changes are noted in the facet joints. Paraspinal soft tissue structures reveal minimal edema immediately adjacent to the L3 vertebral body. Peritoneal and retroperitoneal structures reveal no abnormalities mild superficial soft tissue edema posteriorly suggesting sustained recumbency. IMPRESSION: Acute to early subacute inferior endplate compression fracture at L3 with minimal canal retropulsion and no canal compromise. If there are focal neurological or radiculopathic symptoms, consider MRI follow-up. Signed: JR King Robert MD Report Verified Date/Time:02/01/2018 21:09:21 Reading Location: [facility] C013Y CT Body Reading Room Procedure Note Interface, External Ris In - 02/01/2018 9:11 PM CDT FINAL REPORT CT, SPINE, LUMBAR, WO CONTRAST INDICATION: BACK PAIN back pain COMPARISON: Correlation plain film series of the same date. TECHNIQUE: Contiguous noncontrast axial images of the lumbar spine are obtained. Computer reformatted coronal and sagittal images are also provided. Axial images are available in both bone and soft tissue algorithm. DOSE REDUCTION: Dose modulation, iterative reconstruction, and/or weight-based adjustment of the mA/kV was utilized to reduce the radiation dose to as low as reasonably achievable. FINDINGS: Acute to early subacute inferior endplate compression fracture at the L3 vertebral body. Approximately 50% height loss. There is minimal canal retropulsion (approximately 2 mm) without critical canal narrowing. No foraminal compromise is developed. Overall bone stock is demineralized throughout the axial skeleton. No aggressive lesions are present. Multilevel degenerative changes are noted in the facet joints. Paraspinal soft tissue structures reveal minimal edema immediately adjacent to the L3 vertebral body. Peritoneal and retroperitoneal structures reveal no abnormalities mild superficial soft tissue edema posteriorly suggesting sustained recumbency. IMPRESSION: Acute to early subacute inferior endplate compression fracture at L3 with minimal canal retropulsion and no canal compromise. If there are focal neurological or radiculopathic symptoms, consider MRI follow-up. Signed: JR King Robert MD Report Verified Date/Time: 02/01/2018 21:09:21 Reading Location: [facility] C013Y CT Body Reading Room Performing Organization Address City/State/Zipcode Phone Number RIS * CT thoracic spine without contrast (02/01/2018 8:58 PM CDT) Specimen Narrative Performed At FINAL REPORT [facility] CT thoracic spine without contrast 02/01/2018 8:48 PM CLINICAL INDICATION: BACK PAIN COMPARISON: None available TECHNIQUE: Multiple axial noncontrast CT images of the thoracic spine were obtained in bone and soft tissue windows. Axially acquired data were reformatted in sagittal and coronal planes for further analysis. This examination was performed according to our departmental dose optimization program, which includes automated exposure control, adjustment of the mA and/or kV according to patient size, and/or use of iterated reconstruction technique. FINDINGS: There is a superior T12 compression fracture resulting in no more than 10% loss of vertebral body height but no osseous retropulsion. The remaining vertebral bodies are osteopenic, but intact. There are no osteolytic or osteoblastic lesions. Spinal canal diameter is within normal limits. There are multilevel degenerative changes, without high-grade central canal stenosis. Patchy opacity in the right upper lobe is concerning for pneumonia or aspiration pneumonitis. A TIPS stent is present. IMPRESSION: 1. Mild superior T12 compression fracture without spinal canal compromise. 2. Right upper lobe pneumonia versus aspiration pneumonitis. Signed: Ronaldo Haji MD Report Verified Date/Time:02/01/2018 20:51:05 Reading Location: [facility] Radiology Reading Room Procedure Note Interface, External Ris In - 02/01/2018 8:58 PM CDT FINAL REPORT CT thoracic spine without contrast 02/01/2018 8:48 PM CLINICAL INDICATION: BACK PAIN COMPARISON: None available TECHNIQUE: Multiple axial noncontrast CT images of the thoracic spine were obtained in bone and soft tissue windows. Axially acquired data were reformatted in sagittal and coronal planes for further analysis. This examination was performed according to our departmental dose optimization program, which includes automated exposure control, adjustment of the mA and/or kV according to patient size, and/or use of iterated reconstruction technique. FINDINGS: There is a superior T12 compression fracture resulting in no more than 10% loss of vertebral body height but no osseous retropulsion. The remaining vertebral bodies are osteopenic, but intact. There are no osteolytic or osteoblastic lesions. Spinal canal diameter is within normal limits. There are multilevel degenerative changes, without high-grade central canal stenosis. Patchy opacity in the right upper lobe is concerning for pneumonia or aspiration pneumonitis. A TIPS stent is present. IMPRESSION: 1. Mild superior T12 compression fracture without spinal canal compromise. 2. Right upper lobe pneumonia versus aspiration pneumonitis. Signed: Ronaldo Haji MD Report Verified Date/Time: 02/01/2018 20:51:05 Reading Location: [facility] Reading Room Performing Organization Address City/State/Zipcode Phone Number [facility] * XR spine lumbar complete 4 views min (02/01/2018 6:52 PM CDT) Specimen Narrative Performed At FINAL REPORT [facility] HISTORY:Pain. FINDINGS: Five views of the lumbar spine are submitted without comparison. The examination is limited by osteopenia, which can obscure subtle bony abnormality, and by significant overlying abdominal bowel gas. There are 5 lumbar vertebral levels. There is a compression fracture of the vertebral body of L3 with approximately 50% loss of height. The disc space heights are preserved. There is facet hypertrophy in the mid to lower lumbosacral spine. The neural foramina are grossly patent. No spondylolisthesis is present. There is diffuse gaseous distention of large and small bowel, nonspecific. A TIPS shunt is partially visualized. Multiple punctate calcified density foci overlying the right upper quadrant probably reflect gallstones. IMPRESSION: Age indeterminate compression deformity of the vertebral body of L3 with approximately 50% loss of height. Evaluation with CT or MRI can be performed if clinically indicated. Signed: Steven De La Cruz MD Report Verified Date/Time:02/01/2018 20:56:47 Reading Location: [address] Reading Room Procedure Note Interface, External Ris In - 02/01/2018 8:59 PM CDT FINAL REPORT HISTORY:Pain. FINDINGS: Five views of the lumbar spine are submitted without comparison. The examination is limited by osteopenia, which can obscure subtle bony abnormality, and by significant overlying abdominal bowel gas. There are 5 lumbar vertebral levels. There is a compression fracture of the vertebral body of L3 with approximately 50% loss of height. The disc space heights are preserved. There is facet hypertrophy in the mid to lower lumbosacral spine. The neural foramina are grossly patent. No spondylolisthesis is present. There is diffuse gaseous distention of large and small bowel, nonspecific. A TIPS shunt is partially visualized. Multiple punctate calcified density foci overlying the right upper quadrant probably reflect gallstones. IMPRESSION: Age indeterminate compression deformity of the vertebral body of L3 with approximately 50% loss of height. Evaluation with CT or MRI can be performed if clinically indicated. Signed: Steven De La Cruz MD Report Verified Date/Time: 02/01/2018 20:56:47 Reading Location: [address] Reading Room Performing Organization Address City/State/Zipcode Phone Number [place] [facility] after 11/01/2017 Insurance Payer Benefit Subscriber ID Type Phone Address Plan / Group [facility] x[facility]xx MEDICARE ADV Advance Directives For more information, please contact: [facility] [address] [place] [id number] Date Inactivated Comments Code Status Date Activated 07/24/2018 1:47 PM Full Code 07/17/2018 8:58 AM This code status was determined by: Patient 07/16/2018 11:00 PM Full Code 04/01/2018 4:54 PM This code status was determined by: Patient 02/07/2018 6:05 PM Full Code 02/02/2018 1:11 AM This code status was determined by: Patient
--- OUTSIDE RECORDS SUMMARY | 2018-11-02 14:59 | XMS REPORT | Clinical Summary ---
Author Author [facility] Organization [facility] Address Unknown Phone Unavailable Care Team Providers Care Attendant Child Activity Name Role Phone Ovidio Perez MD PCP Allergies Comments Active Allergy Reactions Severity Noted Date Pregabalin 10/16/2016 Medications End Date Status Medication Sig Dispensed Refills Start Date Active acetaminophen-codeine Take 1 tablet 0 (TYLENOL WITH CODEINE #3) by mouth 300-30 mg per tablet every 4 (four) hours as needed for moderate pain. Active clindamycin (CLEOCIN) 300 Take 300 mg 0 MG capsule by mouth 3 (three) times a day. Active furosemide (LASIX) 20 mg Take 20 mg by 0 tablet mouth 2 (two) times a day. Active levothyroxine (SYNTHROID, Take 88 mcg 0 LEVOXYL) 88 mcg tablet by mouth every morning. Active rOPINIRole (REQUIP) 0.5 Take 0.5 mg 0 MG tablet by mouth 3 (three) times a day. Active spironolactone Take 100 mg 0 (ALDACTONE) 100 MG tablet by mouth daily. Active ranitidine (ZANTAC) 150 Take 150 mg 0 MG tablet by mouth 2 (two) times a day. Active budesonide-formoterol Inhale 2 0 (SYMBICORT) 160-4.5 puffs 2 (two) mcg/actuation inhaler times a day. Active albuterol (PROVENTIL) 2.5 Take 2.5 mg 0 mg /3 mL (0.083 %) by nebulizer solution nebulization every 6 (six) hours as needed for wheezing. Active lactulose 10 gram/15 mL Take by mouth 0 (15 mL) solution 3 (three) times a day. Active Problems No known active problems Social History Date Tobacco Use Types Packs/Day Years Used Former Smoker Cigarettes 1 Alcohol Use Drinks/Week oz/Week Comments Yes 2 beer a day Sex Assigned at Date Recorded Not on file Industry Job Start Date Occupation Not on file Not on file Not on file Travel End Travel History Travel Start No recent travel history available. Last Filed Vital Signs Not on file Plan of Treatment Not on file Implants Device Identifier Shelf Expiration Date Model / Serial / Lot Implanted Type Area Manufactur er 02/06/2021 [id number] / / [id number] Implant Clgn Soft-Tissue Renfrcmnt Human Left: Eye STRYKERCRA 2x5cm 1mm Enduragen - [id number] Tissue NIOMAXILLO Implanted: Qty: 1 on 06/11/2017 by Implants FACIAL Ivan Burgess MD [id number] / / Screw - [id number] IPM Left: Eye АЛЕКСАНДР Implanted: Qty: 2 on 10/16/2016 by IMPLANT ORTHOPEDIC Ivan Burgess MD DEVICES S [id number] / / 1.2x4mm Self Drilng Upperface - IPM Left: Eye АЛЕКСАНДР [id number] IMPLANT CRANIOMAXI Implanted: Qty: 2 on 10/16/2016 by DEVICES LLOFACIAL Ivan Burgess MD 11/16/2020 [id number] / / [id number] Implant Rim Orbtl Medpor Extnd Lt Ophthalmic Left: Eye STRYKERCRA 47mm 40mm - [id number] Implants NIOMAXILLO Implanted: Qty: 1 on 10/16/2016 by Ivan Dasilva MD 02/06/2025 [id number] / / [id number] Implant Cranifcl Medpor Titan Surgical Left: Eye STRYKERCRA Barrier [id number] Pe - [id number] Implants; NIOMAXILLO Implanted: Qty: 1 on 10/16/2016 by Expanders; Ivan Dasilva MD Extenders; Surgical Wires Results Not on fileafter 11/01/2017 Insurance Type Payer Benefit Subscriber ID Effective Phone Address Plan / Dates Group O [employer] [employer] [facility] [employer] x[facility]xx 2016-P [facility] Patient has advance care planning documents on file. For more information, carissa e contact: Ronn Holcomb [phone] [place] [address]
--- OUTSIDE RECORDS SUMMARY | 2018-11-02 15:01 | XMS REPORT ---
Author Author [facility] Address Unknown Phone Unavailable Care Team Providers Care Manager Art Name Role Phone DIANE SHELTON Unavailable Unavailable KEISHA CHOWDHURY Unavailable Unavailable HENRY CHRIS MALVIN Unavailable Unavailable Problems This patient has no known problems. Allergies, Adverse Reactions, Alerts This patient has no known allergies or adverse reactions. Medications This patient has no known medications. Results Test Description Test Time Test Comments Text Results Atomic Results Result Comments TISSUE EXAM 2018-07-26 09:47:00 Surgical Pathology Report Case: [id number] Authorizing Provider: Janeth Skaggs MD Collected: 07/20/2018 1658 Ord ering Location: [address] Received: 07/20/2018 1744 Cardiovascular Pathologist: Wilbur Najera MD Specimen: Lung, Right Upper Lobe A. LUNG, RIGHT UPPER LOBE, CT GUIDED NEEDLE CORE BIOPSY: - ACUTE BRONCHOPNEUMONIA AND ABSCESS FORMATION (SEE COMMENT) - SUSPICIOUS FOR FUNGAL INFECTION - NEGATIVE FOR MALIGNANCY Signing Pathologist Direct Phone Line: [phone] signed by Wilbur Najera MD on 07/26/2018 at 9:47 AMSection shows a single fragment of alveolated lung parenchyma with detached foci of fibrinopurulent exudate. The alveolar pneumocytes are replaced by ciliated bronchial type lining epithelium. No granulomas or malignancy is identified.Special stain for GMS shows fungal hyphal elements. The exact species cannot be definitively determined on histology but differentials include taco, aspergillus, rhizopus, mucor amongst others. AFB stain is negative for acid-fast micro-organisms. Correlation with cultures and serology is recommended.[id number] given Right upper lobe lung biopsy The specimen is received in a formalin-filled container labeled with the patient's information and labeled "right upper lobe lung" and consists of five whittaker core biopsies ranging in length from 0.1 to 0.5 cm, submitted entirely in A1. CG/ew Performed.The interpretation of this case included the use of immunohistochemistry or special stains. Immunohistochemistry technical testing was performed at [facility], Pathology Laboratory where it was developed and [...] as qualified to perform high complexity clinical l aboratory testing. RAD, CHEST, 2 VIEWS 2018-07-23 13:21:00 Reason for exam:->SOB FINAL REPORT INDICATION: SOB COMPARISON: July 22, 2018 TECHNIQUE: Frontal and lateral views of the chest. IMPRESSION:Lungs and pleura: Decreasing conspicuity of patchy airspace disease bilaterally. No effusion.Heart and mediastinum: Normal heart size. Unremarkable mediastinal contours.Osseous structures: No acute abnormality.Additional findings: Stable TIPS. Unchanged right PICC. Signed: JR King Robert MDReport Verified Date/Time: 07/23/2018 13:21:07 Reading Location: [facility] C013V Neuro Reading Room , CHEST, 1 VIEW, NON DEPT 2018-07-22 23:28:00 Reason for exam:->pneumothoraxShould this be performed at the bedside?->Yes FINAL REPORT Portable chest. HISTORY: Pneumothorax. COMPARISON STUDY: July 22, 2018. FINDINGS: The cardiac silhouette is enlarged. There are extensive bilateral airspace opacitie s, most dense in the right upper lung field more pronounced on previous. Blunting of the left costophrenic angle is seen. A right-sided PICC line remains. Degenerative changes are noted. A TIPS shunt is seen. IMPRESSION: Progression of pulmonary opacities, either related to CHF or pneumonia. No pneumothorax seen. Signed: Noe Hall Verified Date/Time: 07/22/2018 23:28:09 Reading Location: [facility] C0[facility] Consult Reading Room , BRAIN, WITHOUT CONTRAST 2018-07-22 20:46:[address], BRAIN, WITHOUT CONTRAST CLINICAL INDICATION: Confusion/delirium, altered LOC, unexplained COMPARISON: None TECHNIQUE: Noncontrast axial CT imaging of the brain and skull. DOSE REDUCTION: Dose modulation, iterative reconstruction, and/or weight-based adjustment of the mA/kV was utilized to reduce the radiation dose to as low as reasonably achievable. FINDINGS:No intracranial hemorrhage, midline shift or mass effect. [...] recommended for further characterization. Signed: Cheng Baxter MDReport Verified Date/Time: 07/22/2018 20:46:26 Reading Location: [facility] Radiology Reading Room -GLUCOSE METER 2018-07-22 13:02:00 POC-GLUCOSE METER (BEAKER) (test lgom=9947) 106 mg/dL 70-110 TESTED AT [address] [address] RAD, CHEST, 1 VIEW, NON [id number] 11:37:00Reason for exam:->pneumothorax FINAL REPORT CLINICAL HISTORY: pneumothorax TECHNIQUE: 1 view of the chest. COMPARISON: 07/21/2018 IMPRESSION: The right PICC line is unch anged. A peripherally located right upper pigtail catheter is again seen without evidence for pneumothorax. Focal right upper lobe opacity is unchanged. The car diomediastinal silhouette is magnified by technique. Signed: Maurice Sam MDRep ort Verified Date/Time: 07/22/2018 11:37:56 Reading [facility] Electronically signed by: MAURICE SAM M.D. on 07/22 11:37 AM POCT-GLUCOSE [id number] 08:36:00* Test Item Value Reference Range Comments POC-GLUCOSE METER (BEAKER) (test sate=9641) 92 mg/dL 70-110 TESTED AT [facility] [address] [facility] [address] BASIC METABOLIC [id number] 04:59:00* Test Item Value Reference Range Comments SODIUM (BEAKER) (test qhgd=900) 132 meq/L 136-145 POTASSIUM (BEAKER) (test jvxw=243) 4.1 meq/L 3.5-5.1 CHLORIDE (BEAKER) (test pmle=625) 102 meq/L 98-107 CO2 (BEAKER) (test mdcd=369) 22 meq/L 22-29 BLOOD UREA NITROGEN (BEAKER) (test ycxt=770) 17 mg/dL 7-21 CREATININE (BEAKER) (test smtk=755) 0.84 mg/dL 0.57-1.25 GLUCOSE RANDOM (BEAKER) (test nqem=044) 144 mg/dL 70-105 CALCIUM (BEAKER) (test tqcr=644) 7.9 mg/dL 8.4-10.2 EGFR (BEAKER) (test utul=0572) 89 mL/min/1.73 sq m ESTIMATED GFR IS NOT ACCURATE CREATININE CLEARANCE IN PREDICTING GLOMERULAR FILTRATION RATE. ESTIMATED GFR IS NOT APPLICABLE FOR DIALYSIS PATIENTS. Specimen slightly ictericCBC W/PLT COUNT & AUTO [id number] 04:34:00 * Test Item Value Reference Range Comments WHITE BLOOD CELL COUNT (BEAKER) (test uxoh=404) 16.3 K/ L 3.5-10.5 RED BLOOD CELL COUNT (BEAKER) (test nemp=498) 4.06 M/ L 4.63-6.08 HEMOGLOBIN (BEAKER) (test krxo=784) 14.5 GM/DL 13.7-17.5 HEMATOCRIT (BEAKER) (test oviv=525) 43.1 % 40.1-51.0 MEAN CORPUSCULAR VOLUME (BEAKER) (test euys=105) 106.2 fL 79.0-92.2 MEAN CORPUSCULAR HEMOGLOBIN (BEAKER) (test wzdk=999) 35.7 pg 25.7-32.2 MEAN CORPUSCULAR HEMOGLOBIN CONC (BEAKER) (test want=861) 33.6 GM/DL 32.3-36.5 RED CELL DISTRIBUTION WIDTH (BEAKER) (test mmgb=833) 13.7 % 11.6-14.4 PLATELET COUNT (BEAKER) (test avcj=084) 127 K/CU MM 150-450 MEAN PLATELET VOLUME (BEAKER) (test ahri=902) 11.3 fL 9.4-12.4 NUCLEATED RED BLOOD CELLS (BEAKER) (test uzzf=273) 0 /100 WBC 0-0 NEUTROPHILS RELATIVE PERCENT (BEAKER) (test pnxn=783) 73 % LYMPHOCYTES RELATIVE PERCENT (BEAKER) (test ulyn=849) 14 % MONOCYTES RELATIVE PERCENT (BEAKER) (test lfgt=881) 11 % EOSINOPHILS RELATIVE PERCENT (BEAKER) (test hsyw=766) 0 % BASOPHILS RELATIVE PERCENT (BEAKER) (test nfyf=358) 0 % NEUTROPHILS ABSOLUTE COUNT (BEAKER) (test nzic=751) 11.85 K/ L 1.78-5.38 LYMPHOCYTES ABSOLUTE COUNT (BEAKER) (test ztjt=269) 2.24 K/ L 1.32-3.57 MONOCYTES ABSOLUTE COUNT (BEAKER) (test npat=199) 1.85 K/ L 0.30-0.82 EOSINOPHILS ABSOLUTE COUNT (BEAKER) (test kghd=779) 0.03 K/ L 0.04-0.54 BASOPHILS ABSOLUTE COUNT (BEAKER) (test ctfe=996) 0.06 K/ L 0.01-0.08 IMMATURE GRANULOCYTES-RELATIVE PERCENT (BEAKER) (test crbd=5977) 1 % 0-1 RAD, CHEST, 1 VIEW, NON [id number] 22:06:00Reason for exam:->pneumothorax FINAL REPORT Portable chest. CLINICAL HISTORY: pneumothor ax. COMPARISON STUDY: July 21, 2018. FINDINGS: The cardiac silhouette is enlarg ed. The pulmonary parenchyma demonstrates airspace opacity in the right mid to u pper lung field and some focal opacity left lung base, similar to previous. The support lines and tubes are unchanged. No definite pneumothorax is seen. Degener ative changes are noted. IMPRESSION: No significant change. No definite pneumoth orax seen with right pigtail catheter chest tube in place and continuing pulmona ry opacities. Signed: Noe Hall MDReport Verified Date/Time: 07/21/2018 2 2:06:20 Reading Location: [address] Consult Reading Room -GLUCOSE METER 2018-07-21 17:08:00* Test Item Value Reference Range Comments POC-GLUCOSE METER (BEAKER) (test srmq=4245) 121 mg/dL 70-110 TESTED AT [facility] [address] [facility] [address] CBC W/PLT COUNT & AUTO [id number] 15:00:00* Test Item Value Reference Range Comments WHITE BLOOD CELL COUNT (BEAKER) (test meku=121) 19.8 K/ L 3.5-10.5 RED BLOOD CELL COUNT (BEAKER) (test jitk=969) 4.26 M/ L 4.63-6.08 HEMOGLOBIN (BEAKER) (test jqgm=496) 15.3 GM/DL 13.7-17.5 HEMATOCRIT (BEAKER) (test wwsz=022) 45.4 % 40.1-51.0 MEAN CORPUSCULAR VOLUME (BEAKER) (test sqce=457) 106.6 fL 79.0-92.2 MEAN CORPUSCULAR HEMOGLOBIN (BEAKER) (test psat=918) 35.9 pg 25.7-32.2 MEAN CORPUSCULAR HEMOGLOBIN CONC (BEAKER) (test zafs=134) 33.7 GM/DL 32.3-36.5 RED CELL DISTRIBUTION WIDTH (BEAKER) (test srek=893) 13.7 % 11.6-14.4 PLATELET COUNT (BEAKER) (test bidh=925) 163 K/CU MM 150-450 MEAN PLATELET VOLUME (BEAKER) (test cfpa=575) 11.3 fL 9.4-12.4 NUCLEATED RED BLOOD CELLS (BEAKER) (test eule=748) 0 /100 WBC 0-0 (CELLAVISION MANUAL DIFF)2018-07-21 15:00:00* Test Item Value Reference Range Comments NEUTROPHILS - REL (CELLAVISION)(BEAKER) (test abno=7838) 87 % LYMPHOCYTES - REL (CELLAVISION)(BEAKER) (test wpou=1070) 5 % MONOCYTES - REL (CELLAVISION)(BEAKER) (test jkfb=2378) 6 % ATYPICAL LYMPHOCYTES - REL (CELLAVISION)(BEAKER) (test pwbu=6616) 1 % 0-0 NEUTROPHILS - ABS (CELLAVISION)(BEAKER) (test lvwn=6872) 17.23 K/ul 1.78-5.38 LYMPHOCYTES - ABS (CELLAVISION)(BEAKER) (test wbsi=2900) 0.99 K/ul 1.32-3.57 MONOCYTES - ABS (CELLAVISION)(BEAKER) (test zzfb=3777) 1.19 K/uL 0.30-0.82 ATYPICAL LYMPHOCYTES - ABS (CELLAVISION)(BEAKER) (test zlwt=0852) 0.20 K/uL 0.00-0.00 TOTAL COUNTED (BEAKER) (test kgtv=0804) 100 GIANT PLATELETS (BEAKER) (test vkqy=701) Present HYPERSEGMENTATION (CELLAVISION)(BEAKER) (test cpyk=7321) Present ANISOCYTOSIS (BEAKER) (test kdcu=061) 3+ many MACROCYTES (BEAKER) (test hfjb=781) 3+ many POIKILOCYTES (BEAKER) (test pqhl=965) 1+ few OVALOCYTES (BEAKER) (test nizi=410) 1+ few ARTIFACT (CELLAVISION)(BEAKER) (test frkz=1034) Present PLATELET CONCENTRATION (CELLAVISION)(BEAKER) (test sqve=5408) Adequate Received comment: User comments: Slide comments: BASIC METABOLIC [id number] 14:59:00* Test Item Value Reference Range Comments SODIUM (BEAKER) (test bspu=422) 133 meq/L 136-145 POTASSIUM (BEAKER) (test axzk=466) 4.3 meq/L 3.5-5.1 Specimen slightly hemolyzed CHLORIDE (BEAKER) (test jaze=614) 105 meq/L 98-107 CO2 (BEAKER) (test zhwt=220) 20 meq/L 22-29 BLOOD UREA NITROGEN (BEAKER) (test resk=716) 21 mg/dL 7-21 CREATININE (BEAKER) (test wgjx=483) 0.82 mg/dL 0.57-1.25 Specimen slightly hemolyzed GLUCOSE RANDOM (BEAKER) (test xykl=491) 129 mg/dL 70-105 CALCIUM (BEAKER) (test mjmh=805) 8.3 mg/dL 8.4-10.2 EGFR (BEAKER) (test ctcp=3221) 92 mL/min/1.73 sq m ESTIMATED GFR IS NOT ACCURATE CREATININE CLEARANCE IN PREDICTING GLOMERULAR FILTRATION RATE. ESTIMATED GFR IS NOT APPLICABLE FOR DIALYSIS PATIENTS. Specimen slightly ictericRAD, CHEST, 1 VIEW, NON [id number] 13:00:00Reason for exam:->PICC LINE PLACEMENTShould this be performed at the bedside?->YesFINAL REPORT CLINICAL HISTORY: PICC LINE PLACEMENT TECHNIQUE: 1 view of the chest. COMPARISON: 07/21/2018 IMPRESSION: The new right PICC line terminates at the cavoatrial junction. A peripherally located right pigtail catheter is again seen with a trace right pneumothorax and right chest wall sub cutaneous emphysema. The lung mckee are otherwise unchanged. Signed: Tommy Sam MDReport Verified Date/Time: 07/21/2018 13:00:04 Reading Location: [address] Consult Reading Room -GLUCOSE [id number] 12:08:00* Test Item Value Reference Range Comments POC-GLUCOSE METER (BEAKER) (test kctw=1453) 137 mg/dL 70-110 TESTED AT [facility] [address] [facility] [address] CT, DRAINAGE, CHEST TUBE [id number] 00:43:00Reason for exam:-> Increasing pneumothoraxFINAL REPORT PROCEDURE: Right chest tube insertion. Dose modulation, iterative reconstruction, and/or weight- based adjustment of the mA/kV was utilized to [...] cavity, and after dilation with an 8 Monegasque dilator, an 8 Monegasque catheter was inserted into the pleural cavity. [...] minimal residual right pneumothorax. Signed: Monico Bee MDReport Verified Date/Time: 07/21/2018 00:43:30 Reading Location: [address] Consult Reading Room , CHEST, 1 VIEW, NON [id number] 00:43:00Reason for exam:->Pain after chest tube placementShould this be performed at the bedside?-> YesFINAL REPORT PROCEDURE: Right chest tube insertion. Dose [...] cavity, and after dilation with an 8 Monegasque dilator, an 8 Monegasque catheter was inserted into the pleural cavity. [...] minimal residual right pneumothorax. Signed: Monico Bee Verified Date/Time: 07/21/2018 00:43:30 Reading Location: [facility] B1 C013W Consult Reading Room , CHEST, PA OR AP, 1 [id number] 19:55:00Reason for exam:->Post Lung BiopsyShould this be performed at the bedside?->YesFINAL REPORT Chest, one view. HISTORY: Post Lung Biopsy COMPARISON: Radiograph from 07/20/2018 IMPRESSION: The right pneumothorax has significantly increased in size. However, it is still small volume. The patient is being brought down for placement of a chest tube. The right upper lung nodule is unchanged. TIPS in place. The cardiac silhouette is unchanged. No acute bony abnormality. Signed: Monico Bee Verified Date/Time: 07/20/2018 19:55:59 Reading Location: [facility] B1 C013W Consult Reading Room , BIOPSY, [id number] 18:11:00Reason for exam:->RUL noduleFINAL REPORT CT-guided core biopsy dated 07/20/2018 Name of practitioner performing procedure:Nick Gonsales M.D. Names of medical support assistant:None Procedure: Core biopsy of the right upper lobe mass Preprocedure diagnosis:Right upper lobe mass Postprocedure diagnosis:Right upper lobe mass Specimens removed:Right upper lobe mass Estimated blood loss:Minimal Complication:Tiny right apical pneumothorax. Sequential chest examinations has been ordered. Conscious sedation: 1 mg Versed and [address] Nick Gonsales was responsible for the moderate sedation. Total sedation time: 20 minutes Anesthesia: 1% Xylocaine local anesthesia. Graft/Implants:None Technique: This exam was performed according to [...] right upper lobe mass. Signed: Nick Gonsales Verified Date/Time: 07/20/2018 18:11:12 Reading Location: [address] Body Reading Room , CHEST, PA OR AP, 1 VIEW 2018-07-20 18:00:00Reason for exam:->Post Lung BiopsyShould this be performed at the bedside?->NoFINAL REPORT TECHNIQUE: Frontal view of the chest. INDICATION: Post Lung Biopsy. COMPARISON: Chest radiograph from earlier today. Chest CT from earlier today. FINDINGS: LINES/TUBES: None. LUNGS: There is a right upper lung nodule with some surrounding hemorrhage. PLEURA: Small right apical pneumothorax. HEART AND MEDIASTINUM: The cardiomediastinal silhouette is unchanged. SOFT TISSUES AND BONES: Tips over the expected location. Old, healed right lateral 10th rib fracture. IMPRESSION: There is small right apical pneumothorax. The findings were discussed with Dr. Gonsales on 07/20/2018 at 5:55 PM. Signed: Monico Bee Verified Date/Time: 07/20/2018 18:00:14 Reading Location: [address] Consult Reading Room IC ACID, [id number] 13:49:00* Test Item Value Reference Range Comments LACTATE BLOOD VENOUS (2) (BEAKER) (test ybkc=7318) 1.4 mmol/L 0.5-2.2 Specimen slightly hemolyzed Specimen slightly [id number] 13:46:00* Test Item Value Reference Range Comments AMMONIA (BEAKER) (test ggns=213) 89 mol/L 18-72 POCT-GLUCOSE [id number] 13:23:00* Test Item Value Reference Range Comments POC-GLUCOSE METER (BEAKER) (test uorv=9127) 94 mg/dL 70-110 TESTED AT [address] [address] RAD, CHEST, 1 VIEW, NON [id number] 13:04:00Reason for exam:->shortness of breathShould this be performed at the bedside?->YesFINAL REPORT CLINICAL HISTORY: shortness of breath TECHNIQUE: 1 view of the chest. COMPARISON: 07/17/2018 IMPRESSION: The right upper lobe mass is unchanged. There are no new infiltrates or effusions. The cardiomediastinal silhouette is magnified by technique. Signed: Maurice Sam Verified Date/Time: 07/20/2018 13:04:26 Reading Location: [facility] C013W Consult Reading Room - GLUCOSE [id number] 10:33:00* Test Item Value Reference Range Comments POC-GLUCOSE METER (BEAKER) (test nbww=2697) 118 mg/dL 70-110 TESTED AT [place] [id number] [facility] [address] CBC W/PLT COUNT & AUTO [id number] 07:41:00* Test Item Value Reference Range Comments WHITE BLOOD CELL COUNT (BEAKER) (test hyuu=652) 19.3 K/ L 3.5-10.5 RED BLOOD CELL COUNT (BEAKER) (test qpkz=765) 4.16 M/ L 4.63-6.08 HEMOGLOBIN (BEAKER) (test sduy=670) 14.8 GM/DL 13.7-17.5 HEMATOCRIT (BEAKER) (test yrld=013) 43.9 % 40.1-51.0 MEAN CORPUSCULAR VOLUME (BEAKER) (test ucwa=714) 105.5 fL 79.0-92.2 MEAN CORPUSCULAR HEMOGLOBIN (BEAKER) (test yixe=194) 35.6 pg 25.7-32.2 MEAN CORPUSCULAR HEMOGLOBIN CONC (BEAKER) (test iiur=586) 33.7 GM/DL 32.3-36.5 RED CELL DISTRIBUTION WIDTH (BEAKER) (test kxlj=586) 14.2 % 11.6-14.4 PLATELET COUNT (BEAKER) (test wdnh=271) 161 K/CU MM 150-450 MEAN PLATELET VOLUME (BEAKER) (test zryy=712) 11.5 fL 9.4-12.4 NUCLEATED RED BLOOD CELLS (BEAKER) (test cevt=230) 0 /100 WBC 0-0 (CELLAVISION MANUAL DIFF)2018-07-20 07:41:00* Test Item Value Reference Range Comments NEUTROPHILS - REL (CELLAVISION)(BEAKER) (test bxjq=1505) 75 % LYMPHOCYTES - REL (CELLAVISION)(BEAKER) (test qphg=4015) 4 % MONOCYTES - REL (CELLAVISION)(BEAKER) (test zjyw=4982) 20 % ATYPICAL LYMPHOCYTES - REL (CELLAVISION)(BEAKER) (test jiog=5045) 1 % 0-0 NEUTROPHILS - ABS (CELLAVISION)(BEAKER) (test zhjf=6709) 14.48 K/ul 1.78-5.38 LYMPHOCYTES - ABS (CELLAVISION)(BEAKER) (test salw=9586) 0.77 K/ul 1.32-3.57 MONOCYTES - ABS (CELLAVISION)(BEAKER) (test zrxg=9955) 3.86 K/uL 0.30-0.82 ATYPICAL LYMPHOCYTES - ABS (CELLAVISION)(BEAKER) (test vklm=5888) 0.19 K/uL 0.00-0.00 TOTAL COUNTED (BEAKER) (test iaks=9761) 100 MANUAL NRBC PER 100 CELLS (BEAKER) (test jyuh=1362) 1 /100 WBC 0-0 RBC MORPHOLOGY (BEAKER) (test dlnc=506) Normal WBC MORPHOLOGY (BEAKER) (test enry=199) Normal PLT MORPHOLOGY (BEAKER) (test fpyh=833) Normal GIANT PLATELETS (BEAKER) (test pvdc=353) Present ANISOCYTOSIS (BEAKER) (test senv=628) 1+ few MACROCYTES (BEAKER) (test rrkc=278) 1+ few ARTIFACT (CELLAVISION)(BEAKER) (test ewin=4424) Present PLATELET CONCENTRATION (CELLAVISION)(BEAKER) (test jpda=5600) Adequate Received comment: User comments: Slide comments: BASIC METABOLIC [id number] 05:07:00* Test Item Value Reference Range Comments SODIUM (BEAKER) (test vwly=495) 135 meq/L 136-145 POTASSIUM (BEAKER) (test umlc=972) 4.3 meq/L 3.5-5.1 Specimen slightly hemolyzed CHLORIDE (BEAKER) (test tfjz=635) 106 meq/L 98-107 CO2 (BEAKER) (test hnaa=534) 22 meq/L 22-29 BLOOD UREA NITROGEN (BEAKER) (test qsbr=698) 18 mg/dL 7-21 CREATININE (BEAKER) (test lxmt=005) 0.77 mg/dL 0.57-1.25 Specimen slightly hemolyzed GLUCOSE RANDOM (BEAKER) (test xbnm=154) 133 mg/dL 70-105 CALCIUM (BEAKER) (test wcza=936) 8.5 mg/dL 8.4-10.2 EGFR (BEAKER) (test bcpn=4571) 99 mL/min/1.73 sq m ESTIMATED GFR IS NOT ACCURATE CREATININE CLEARANCE IN PREDICTING GLOMERULAR FILTRATION RATE. ESTIMATED GFR IS NOT APPLICABLE FOR DIALYSIS PATIENTS. Specimen slightly ictericHEMOGLOBIN [id number] 13:26:00* Test Item Value Reference Range Comments HEMOGLOBIN A1C (BEAKER) (test actr=650) 5.0 % 4.3-6.1 CBC W/PLT COUNT & AUTO [id number] 09:32:00* Test Item Value Reference Range Comments WHITE BLOOD CELL COUNT (BEAKER) (test afsp=277) 17.0 K/ L 3.5-10.5 RED BLOOD CELL COUNT (BEAKER) (test qjay=994) 3.80 M/ L 4.63-6.08 HEMOGLOBIN (BEAKER) (test tccp=375) 13.8 GM/DL 13.7-17.5 HEMATOCRIT (BEAKER) (test gcyb=834) 41.0 % 40.1-51.0 MEAN CORPUSCULAR VOLUME (BEAKER) (test aicm=528) 107.9 fL 79.0-92.2 MEAN CORPUSCULAR HEMOGLOBIN (BEAKER) (test zbbi=842) 36.3 pg 25.7-32.2 MEAN CORPUSCULAR HEMOGLOBIN CONC (BEAKER) (test lalx=574) 33.7 GM/DL 32.3-36.5 RED CELL DISTRIBUTION WIDTH (BEAKER) (test zyyx=849) 14.1 % 11.6-14.4 PLATELET COUNT (BEAKER) (test luhe=833) 139 K/CU MM 150-450 MEAN PLATELET VOLUME (BEAKER) (test dbhm=837) 12.3 fL 9.4-12.4 NUCLEATED RED BLOOD CELLS (BEAKER) (test ahqm=535) 0 /100 WBC 0-0 (CELLAVISION MANUAL DIFF)2018-07-18 09:32:00* Test Item Value Reference Range Comments NEUTROPHILS - REL (CELLAVISION)(BEAKER) (test ihjd=7002) 82 % LYMPHOCYTES - REL (CELLAVISION)(BEAKER) (test pgap=9150) 9 % MONOCYTES - REL (CELLAVISION)(BEAKER) (test acqh=1070) 6 % BASOPHILS - REL (CELLAVISION)(BEAKER) (test jkix=0324) 1 % ATYPICAL LYMPHOCYTES - REL (CELLAVISION)(BEAKER) (test rvig=6120) 2 % 0-0 NEUTROPHILS - ABS (CELLAVISION)(BEAKER) (test qrnu=0553) 13.94 K/ul 1.78-5.38 LYMPHOCYTES - ABS (CELLAVISION)(BEAKER) (test cbzz=7566) 1.53 K/ul 1.32-3.57 MONOCYTES - ABS (CELLAVISION)(BEAKER) (test tysx=6253) 1.02 K/uL 0.30-0.82 BASOPHILS - ABS (CELLAVISION)(BEAKER) (test yhgt=7337) 0.17 K/uL 0.01-0.08 ATYPICAL LYMPHOCYTES - ABS (CELLAVISION)(BEAKER) (test ilmr=9609) 0.34 K/uL 0.00-0.00 TOTAL COUNTED (BEAKER) (test gflm=7323) 100 PLT MORPHOLOGY (BEAKER) (test vwsu=791) Normal SMUDGE CELLS (BEAKER) (test ymqq=0933) Present POLYCHROMATOPHILLIC RBCS(BEAKER) (test ffdw=473) 2+ moderate ANISOCYTOSIS (BEAKER) (test tyep=504) 2+ moderate MACROCYTES (BEAKER) (test qjey=136) 2+ moderate PLATELET CONCENTRATION (CELLAVISION)(BEAKER) (test cxca=9771) Decreased Received comment: User comments: Slide comments: TSH/FREE T4 IF INDICATED 2018-07-18 05:08:00* Test Item Value Reference Range Comments THYROID STIMULATING HORMONE (BEAKER) (test vlyr=010) 0.49 uIU/mL 0.35-4.94 [id number] 05:00:00* Test Item Value Reference Range Comments MAGNESIUM (BEAKER) (test mwex=490) 2.1 mg/dL 1.6-2.6 BASIC METABOLIC [id number] 05:00:00* Test Item Value Reference Range Comments SODIUM (BEAKER) (test ejup=659) 136 meq/L 136-145 POTASSIUM (BEAKER) (test apjb=823) 4.1 meq/L 3.5-5.1 CHLORIDE (BEAKER) (test wqkh=025) 105 meq/L 98-107 CO2 (BEAKER) (test xgfk=855) 24 meq/L 22-29 BLOOD UREA NITROGEN (BEAKER) (test cihp=294) 12 mg/dL 7-21 CREATININE (BEAKER) (test voov=510) 0.79 mg/dL 0.57-1.25 GLUCOSE RANDOM (BEAKER) (test shtc=025) 160 mg/dL 70-105 CALCIUM (BEAKER) (test wkxt=163) 8.5 mg/dL 8.4-10.2 EGFR (BEAKER) (test ccvg=1267) 96 mL/min/1.73 sq m ESTIMATED GFR IS NOT ACCURATE CREATININE CLEARANCE IN PREDICTING GLOMERULAR FILTRATION RATE. ESTIMATED GFR IS NOT APPLICABLE FOR DIALYSIS PATIENTS. HEPATIC FUNCTION [id number] 05:00:00* Test Item Value Reference Range Comments TOTAL PROTEIN (BEAKER) (test rzib=810) 6.5 gm/dL 6.0-8.3 ALBUMIN (BEAKER) (test hwws=7104) 3.0 g/dL 3.5-5.0 BILIRUBIN TOTAL (BEAKER) (test tsuo=700) 1.7 mg/dL 0.2-1.2 BILIRUBIN DIRECT (BEAKER) (test iriw=417) 0.9 mg/dL 0.1-0.5 ALKALINE PHOSPHATASE (BEAKER) (test iens=801) 158 U/L 40-150 AST (SGOT) (BEAKER) (test vzkd=533) 18 U/L 5-34 ALT (SGPT) (BEAKER) (test mclf=739) 30 U/L 6-55 B-TYPE NATRIURETIC FACTOR (BNP)2018-07-18 04:45:00* Test Item Value Reference Range Comments B-TYPE NATRIURETIC PEPTIDE (BEAKER) (test spho=383) 214 pg/mL 0-100 [id number] 04:35:00* Test Item Value Reference Range Comments PROTIME (BEAKER) (test khsk=231) 18.1 seconds 11.7-14.7 INR (BEAKER) (test cjdj=332) 1.5 <=5.9 PARTIAL THROMBOPLASTIN TIME (BEAKER) (test zxay=341) 34.3 seconds 22.5-36.0 RECOMMENDED COUMADIN/WARFARIN INR THERAPY RANGESSTANDARD DOSE: 2.0 - 3.0 Inclu jorge: PROPHYLAXIS for venous thrombosis, systemic embolization; TREATMENT for neil ous thrombosis and/or pulmonary embolus.HIGH RISK: Target INR is 2.5-3.5 for pat ients with mechanical heart valves.CT, CHEST, WITHOUT [id number] 10:36:00FINAL REPORT INDICATION: Shortness of breath, suspect cardiac origin. COMPARISON:Chest radiograph July 17, 2018 TECHNIQUE: Chest CT exam WITHOUT intravenous contrast. The exam was performed according to our department dose-optimization protocol, which includes automated exposure control, adjustments of mA and kV according to patient size. Iterative reconstructions are also sometimes employed. FINDINGS:In the right upper lobe there is a [...] indicating pulmonary artery hypertension. Signed: Magan Cardona MDReport Verified Date/Time: 07/17/2018 10:36:26 Reading Location: [address] Ortho Consult Reading Room [facility] signed by: MAGAN CARDONA M.D. on 07/17/2018 10:36 AM TROPONIN [id number] 04:27:00* Test Item Value Reference Range Comments TROPONIN I (ROMEL) (test hpmc=805) < ng/mL 0.00-0.03 Troponin I (TnI) levels must be interpreted in the context of the presenting sym ptoms and the clinical findings. Elevated TnI levels indicate myocardial damage, but are not specific for ischemic heart disease. Elevated TnI levels are seen in patients with other cardiac conditions (including myocarditis and congestive h eart failure), and slight TnI elevations occur in patients with other conditions , including sepsis, renal failure, acidosis, acute neurological disease, and per sistent tachyarrhythmia.B-TYPE NATRIURETIC FACTOR (BNP)2018-07-17 04:26:00* Test Item Value Reference Range Comments B-TYPE NATRIURETIC PEPTIDE (ROMEL) (test kyve=420) 376 pg/mL 0-100 CBC W/PLT COUNT & AUTO [id number] 04:24:00* Test Item Value Reference Range Comments WHITE BLOOD CELL COUNT (BEAKER) (test zmcw=256) 13.9 K/ L 3.5-10.5 RED BLOOD CELL COUNT (BEAKER) (test yhce=408) 3.71 M/ L 4.63-6.08 HEMOGLOBIN (BEAKER) (test slmv=350) 13.3 GM/DL 13.7-17.5 HEMATOCRIT (BEAKER) (test rrzc=150) 40.4 % 40.1-51.0 MEAN CORPUSCULAR VOLUME (BEAKER) (test ffnk=270) 108.9 fL 79.0-92.2 MEAN CORPUSCULAR HEMOGLOBIN (BEAKER) (test svus=461) 35.8 pg 25.7-32.2 MEAN CORPUSCULAR HEMOGLOBIN CONC (BEAKER) (test zeho=475) 32.9 GM/DL 32.3-36.5 RED CELL DISTRIBUTION WIDTH (BEAKER) (test pflq=289) 14.6 % 11.6-14.4 PLATELET COUNT (BEAKER) (test xebh=941) 157 K/CU MM 150-450 MEAN PLATELET VOLUME (BEAKER) (test pvyf=049) 11.2 fL 9.4-12.4 NUCLEATED RED BLOOD CELLS (BEAKER) (test wath=735) 0 /100 WBC 0-0 NEUTROPHILS RELATIVE PERCENT (BEAKER) (test xpvc=786) 59 % LYMPHOCYTES RELATIVE PERCENT (BEAKER) (test fadw=629) 25 % MONOCYTES RELATIVE PERCENT (BEAKER) (test uwjx=384) 14 % EOSINOPHILS RELATIVE PERCENT (BEAKER) (test rsfl=013) 0 % BASOPHILS RELATIVE PERCENT (BEAKER) (test ypux=508) 0 % NEUTROPHILS ABSOLUTE COUNT (BEAKER) (test pzbl=106) 8.21 K/ L 1.78-5.38 LYMPHOCYTES ABSOLUTE COUNT (BEAKER) (test kzqr=867) 3.54 K/ L 1.32-3.57 MONOCYTES ABSOLUTE COUNT (BEAKER) (test tlgy=348) 1.94 K/ L 0.30-0.82 EOSINOPHILS ABSOLUTE COUNT (BEAKER) (test frlg=740) 0.06 K/ L 0.04-0.54 BASOPHILS ABSOLUTE COUNT (BEAKER) (test lsas=028) 0.03 K/ L 0.01-0.08 IMMATURE GRANULOCYTES-RELATIVE PERCENT (BEAKER) (test puld=8085) 1 % 0-1 HEPATIC FUNCTION [id number] 04:21:00* Test Item Value Reference Range Comments TOTAL PROTEIN (BEAKER) (test tfbb=482) 6.3 gm/dL 6.0-8.3 ALBUMIN (BEAKER) (test mwxn=4058) 2.9 g/dL 3.5-5.0 BILIRUBIN TOTAL (BEAKER) (test kpim=488) 1.5 mg/dL 0.2-1.2 BILIRUBIN DIRECT (BEAKER) (test iuai=921) 0.8 mg/dL 0.1-0.5 ALKALINE PHOSPHATASE (BEAKER) (test qopr=104) 177 U/L 40-150 AST (SGOT) (BEAKER) (test nouw=276) 19 U/L 5-34 ALT (SGPT) (BEAKER) (test hixc=319) 31 U/L 6-55 BASIC METABOLIC [id number] 04:21:00* Test Item Value Reference Range Comments SODIUM (BEAKER) (test hdfp=639) 138 meq/L 136-145 POTASSIUM (BEAKER) (test sypd=930) 4.3 meq/L 3.5-5.1 CHLORIDE (BEAKER) (test krio=657) 109 meq/L 98-107 CO2 (BEAKER) (test zqau=472) 25 meq/L 22-29 BLOOD UREA NITROGEN (BEAKER) (test ztxl=499) 14 mg/dL 7-21 CREATININE (BEAKER) (test wqyv=712) 0.78 mg/dL 0.57-1.25 GLUCOSE RANDOM (BEAKER) (test pjkh=288) 118 mg/dL 70-105 CALCIUM (BEAKER) (test hxpz=713) 8.6 mg/dL 8.4-10.2 EGFR (BEAKER) (test ryza=1259) 97 mL/min/1.73 sq m ESTIMATED GFR IS NOT ACCURATE CREATININE CLEARANCE IN PREDICTING GLOMERULAR FILTRATION RATE. ESTIMATED GFR IS NOT APPLICABLE FOR DIALYSIS PATIENTS. PT/[id number] 04:18:00* Test Item Value Reference Range Comments PROTIME (BEAKER) (test xitk=595) 18.6 seconds 11.7-14.7 INR (BEAKER) (test chan=622) 1.5 <=5.9 PARTIAL THROMBOPLASTIN TIME (BEAKER) (test gztm=721) 37.9 seconds 22.5-36.0 RECOMMENDED COUMADIN/WARFARIN INR THERAPY RANGESSTANDARD DOSE: 2.0 - 3.0 Inclu jorge: PROPHYLAXIS for venous thrombosis, systemic embolization; TREATMENT for neil ous thrombosis and/or pulmonary embolus.HIGH RISK: Target INR is 2.5-3.5 for pat ients with mechanical heart valves.RAD, CHEST, PA OR AP, 1 [id number] 03:40:00Reason for exam:->chest painShould this be performed at the bedside?-> YesFINAL REPORT Chest one view. Clinical history: chest pain Comparison: None. Technique: A single frontal view of the chest was obtained. Findings: The cardiac silhouette is mildly enlarged. The aorta is tortuous and atherosclerotic. There is pulmonary vascular congestion. There is no focal pulmonary consolidation, pleural effusion or pneumothorax. The bony thorax is unremarkable. Impression:Cardiomegaly.Pulmonary vascular congestion.No focal pulmonary consolidation. Signed: Jose Almonte MDReport Verified Date/Time: 07/17/2018 03:40:53 Reading Location: [address] Body Reading Room , VERTEBROPLASTY THORACIC, [id number] 15:41:00Reason for Exam:->T12 and L3 compression fracturesFINAL REPORT HISTORY: T12 and L3 wedge vertebral [...] No immediate complications. Total fluoroscopy time: 23.9 minsEstimated dose reported as (Ka,r): 1933 mGy Signed: Anson Chowdhury MDReport Verified Date/Time: 05/31/2018 15:41:50 Reading Location: [place] [id number] Angio Body Reading Room Electronically signed by: ANSON CHOWDHURY M.D. on 019 03:41 PM CBC W/PLT COUNT & AUTO [id number] 14:13:00* Test Item Value Reference Range Comments WHITE BLOOD CELL COUNT (BEAKER) (test andc=462) 5.7 K/ L 3.5-10.5 RED BLOOD CELL COUNT (BEAKER) (test dpet=392) 3.86 M/ L 4.63-6.08 HEMOGLOBIN (BEAKER) (test ytkt=034) 13.7 GM/DL 13.7-17.5 HEMATOCRIT (BEAKER) (test ttga=141) 40.3 % 40.1-51.0 MEAN CORPUSCULAR VOLUME (BEAKER) (test htjn=101) 104.4 fL 79.0-92.2 MEAN CORPUSCULAR HEMOGLOBIN (BEAKER) (test koua=800) 35.5 pg 25.7-32.2 MEAN CORPUSCULAR HEMOGLOBIN CONC (BEAKER) (test mxse=203) 34.0 GM/DL 32.3-36.5 RED CELL DISTRIBUTION WIDTH (BEAKER) (test rimo=566) 13.3 % 11.6-14.4 PLATELET COUNT (BEAKER) (test ziye=778) 95 K/CU MM 150-450 MEAN PLATELET VOLUME (BEAKER) (test eqaz=606) 12.0 fL 9.4-12.4 NUCLEATED RED BLOOD CELLS (BEAKER) (test gqsj=335) 1 /100 WBC 0-0 NEUTROPHILS RELATIVE PERCENT (BEAKER) (test mskb=031) 48 % LYMPHOCYTES RELATIVE PERCENT (BEAKER) (test nigv=982) 41 % MONOCYTES RELATIVE PERCENT (BEAKER) (test zedz=661) 9 % EOSINOPHILS RELATIVE PERCENT (BEAKER) (test xusu=774) 2 % BASOPHILS RELATIVE PERCENT (BEAKER) (test jcbk=219) 1 % NEUTROPHILS ABSOLUTE COUNT (BEAKER) (test jhzu=599) 2.69 K/ L 1.78-5.38 LYMPHOCYTES ABSOLUTE COUNT (BEAKER) (test gjoq=253) 2.32 K/ L 1.32-3.57 MONOCYTES ABSOLUTE COUNT (BEAKER) (test xgfi=913) 0.49 K/ L 0.30-0.82 EOSINOPHILS ABSOLUTE COUNT (BEAKER) (test nvas=911) 0.11 K/ L 0.04-0.54 BASOPHILS ABSOLUTE COUNT (BEAKER) (test hmjv=154) 0.03 K/ L 0.01-0.08 IMMATURE GRANULOCYTES-RELATIVE PERCENT (BEAKER) (test pmzj=9957) 1 % 0-1 PROTHROMBIN [id number] 13:56:00* Test Item Value Reference Range Comments PROTIME (BEAKER) (test rxry=750) 18.6 seconds 11.7-14.7 INR (BEAKER) (test fjsr=519) 1.6 <=5.9 RECOMMENDED COUMADIN/WARFARIN INR THERAPY RANGESSTANDARD DOSE: 2.0 - 3.0 Inclu jorge: PROPHYLAXIS for venous thrombosis, systemic embolization; TREATMENT for neil ous thrombosis and/or pulmonary embolus.HIGH RISK: Target INR is 2.5-3.5 for pat ients with mechanical heart valves.[id number] 13:56:00* Test Item Value Reference Range Comments PARTIAL THROMBOPLASTIN TIME (BEAKER) (test fgxq=948) 34.0 seconds 22.5-36.0 BASIC METABOLIC [id number] 13:55:00* Test Item Value Reference Range Comments SODIUM (BEAKER) (test vjkt=508) 135 meq/L 136-145 POTASSIUM (BEAKER) (test usth=684) 3.9 meq/L 3.5-5.1 Specimen slightly hemolyzed CHLORIDE (BEAKER) (test penz=531) 106 meq/L 98-107 CO2 (BEAKER) (test auay=099) 24 meq/L 22-29 BLOOD UREA NITROGEN (BEAKER) (test cmgl=316) 6 mg/dL 7-21 CREATININE (BEAKER) (test podl=511) 0.72 mg/dL 0.57-1.25 Specimen slightly hemolyzed GLUCOSE RANDOM (BEAKER) (test cjlc=558) 92 mg/dL 70-105 CALCIUM (BEAKER) (test txeh=905) 8.4 mg/dL 8.4-10.2 EGFR (BEAKER) (test dfnr=8282) 107 mL/min/1.73 sq m ESTIMATED GFR IS NOT ACCURATE CREATININE CLEARANCE IN PREDICTING GLOMERULAR FILTRATION RATE. ESTIMATED GFR IS NOT APPLICABLE FOR DIALYSIS PATIENTS. Specimen slightly ictericBLOOD [id number] 06:00:00* Test Item Value Reference Range Comments CULTURE (BEAKER) (test gtlp=1545) No growth in 5 days BLOOD [id number] 06:00:00* Test Item Value Reference Range Comments CULTURE (BEAKER) (test oyuq=7517) No growth in 5 days BASIC METABOLIC [id number] 07:09:00* Test Item Value Reference Range Comments SODIUM (BEAKER) (test marl=951) 135 meq/L 136-145 POTASSIUM (BEAKER) (test femf=893) 3.9 meq/L 3.5-5.1 CHLORIDE (BEAKER) (test bynb=454) 105 meq/L 98-107 CO2 (BEAKER) (test wiln=775) 23 meq/L 22-29 BLOOD UREA NITROGEN (BEAKER) (test kdqs=504) 11 mg/dL 7-21 CREATININE (BEAKER) (test ikkh=234) 0.78 mg/dL 0.57-1.25 GLUCOSE RANDOM (BEAKER) (test xjiy=728) 99 mg/dL 70-105 CALCIUM (BEAKER) (test oemw=909) 8.6 mg/dL 8.4-10.2 EGFR (BEAKER) (test kvax=5138) 97 mL/min/1.73 sq m ESTIMATED GFR IS NOT ACCURATE CREATININE CLEARANCE IN PREDICTING GLOMERULAR FILTRATION RATE. ESTIMATED GFR IS NOT APPLICABLE FOR DIALYSIS PATIENTS. Specimen slightly ictericCBC W/PLT COUNT & AUTO [id number] 06:41:00 * Test Item Value Reference Range Comments WHITE BLOOD CELL COUNT (BEAKER) (test vucw=387) 6.7 K/ L 3.5-10.5 RED BLOOD CELL COUNT (BEAKER) (test kxem=463) 3.77 M/ L 4.63-6.08 HEMOGLOBIN (BEAKER) (test uplw=393) 13.6 GM/DL 13.7-17.5 HEMATOCRIT (BEAKER) (test mref=755) 40.1 % 40.1-51.0 MEAN CORPUSCULAR VOLUME (BEAKER) (test hunk=800) 106.4 fL 79.0-92.2 MEAN CORPUSCULAR HEMOGLOBIN (BEAKER) (test qmoj=800) 36.1 pg 25.7-32.2 MEAN CORPUSCULAR HEMOGLOBIN CONC (BEAKER) (test spex=360) 33.9 GM/DL 32.3-36.5 RED CELL DISTRIBUTION WIDTH (BEAKER) (test xroh=009) 13.6 % 11.6-14.4 PLATELET COUNT (BEAKER) (test lrff=836) 158 K/CU MM 150-450 MEAN PLATELET VOLUME (BEAKER) (test gawl=009) 10.9 fL 9.4-12.4 NUCLEATED RED BLOOD CELLS (BEAKER) (test relp=962) 0 /100 WBC 0-0 NEUTROPHILS RELATIVE PERCENT (BEAKER) (test mkyx=513) 50 % LYMPHOCYTES RELATIVE PERCENT (BEAKER) (test bxrl=231) 32 % MONOCYTES RELATIVE PERCENT (BEAKER) (test yttv=569) 12 % EOSINOPHILS RELATIVE PERCENT (BEAKER) (test zjoj=346) 4 % BASOPHILS RELATIVE PERCENT (BEAKER) (test qjjo=228) 1 % NEUTROPHILS ABSOLUTE COUNT (BEAKER) (test efbl=792) 3.37 K/ L 1.78-5.38 LYMPHOCYTES ABSOLUTE COUNT (BEAKER) (test lpzg=168) 2.18 K/ L 1.32-3.57 MONOCYTES ABSOLUTE COUNT (BEAKER) (test vzqf=871) 0.82 K/ L 0.30-0.82 EOSINOPHILS ABSOLUTE COUNT (BEAKER) (test suug=062) 0.28 K/ L 0.04-0.54 BASOPHILS ABSOLUTE COUNT (BEAKER) (test ecgy=415) 0.05 K/ L 0.01-0.08 IMMATURE GRANULOCYTES-RELATIVE PERCENT (BEAKER) (test cyun=6335) 0 % 0-1 BASIC METABOLIC [id number] 18:42:00* Test Item Value Reference Range Comments SODIUM (BEAKER) (test bofe=601) 136 meq/L 136-145 POTASSIUM (BEAKER) (test snob=196) 4.0 meq/L 3.5-5.1 Specimen slightly hemolyzed CHLORIDE (BEAKER) (test ckbk=139) 105 meq/L 98-107 CO2 (BEAKER) (test bdwb=994) 23 meq/L 22-29 BLOOD UREA NITROGEN (BEAKER) (test ghvq=123) 9 mg/dL 7-21 CREATININE (BEAKER) (test jjmg=852) 0.81 mg/dL 0.57-1.25 Specimen slightly hemolyzed GLUCOSE RANDOM (BEAKER) (test vgjm=381) 100 mg/dL 70-105 CALCIUM (BEAKER) (test bawj=830) 8.7 mg/dL 8.4-10.2 EGFR (BEAKER) (test vcgy=0121) 93 mL/min/1.73 sq m ESTIMATED GFR IS NOT ACCURATE CREATININE CLEARANCE IN PREDICTING GLOMERULAR FILTRATION RATE. ESTIMATED GFR IS NOT APPLICABLE FOR DIALYSIS PATIENTS. CBC W/PLT COUNT & AUTO [id number] 18:29:00* Test Item Value Reference Range Comments WHITE BLOOD CELL COUNT (BEAKER) (test xsir=942) 6.9 K/ L 3.5-10.5 RED BLOOD CELL COUNT (BEAKER) (test wwjj=081) 4.05 M/ L 4.63-6.08 HEMOGLOBIN (BEAKER) (test ewej=180) 14.4 GM/DL 13.7-17.5 HEMATOCRIT (BEAKER) (test zjsm=350) 42.7 % 40.1-51.0 MEAN CORPUSCULAR VOLUME (BEAKER) (test wmby=147) 105.4 fL 79.0-92.2 MEAN CORPUSCULAR HEMOGLOBIN (BEAKER) (test gqqc=196) 35.6 pg 25.7-32.2 MEAN CORPUSCULAR HEMOGLOBIN CONC (BEAKER) (test taqs=077) 33.7 GM/DL 32.3-36.5 RED CELL DISTRIBUTION WIDTH (BEAKER) (test aeul=716) 13.8 % 11.6-14.4 PLATELET COUNT (BEAKER) (test rvpm=021) 178 K/CU MM 150-450 MEAN PLATELET VOLUME (BEAKER) (test krfg=942) 10.7 fL 9.4-12.4 NUCLEATED RED BLOOD CELLS (BEAKER) (test fhdv=122) 0 /100 WBC 0-0 NEUTROPHILS RELATIVE PERCENT (BEAKER) (test oebj=448) 52 % LYMPHOCYTES RELATIVE PERCENT (BEAKER) (test sxox=954) 33 % MONOCYTES RELATIVE PERCENT (BEAKER) (test beab=482) 11 % EOSINOPHILS RELATIVE PERCENT (BEAKER) (test nwhh=071) 3 % BASOPHILS RELATIVE PERCENT (BEAKER) (test gxfi=475) 1 % NEUTROPHILS ABSOLUTE COUNT (BEAKER) (test zjsn=185) 3.55 K/ L 1.78-5.38 LYMPHOCYTES ABSOLUTE COUNT (BEAKER) (test nvim=037) 2.30 K/ L 1.32-3.57 MONOCYTES ABSOLUTE COUNT (BEAKER) (test paoh=616) 0.75 K/ L 0.30-0.82 EOSINOPHILS ABSOLUTE COUNT (BEAKER) (test lkzt=757) 0.23 K/ L 0.04-0.54 BASOPHILS ABSOLUTE COUNT (BEAKER) (test owmb=344) 0.04 K/ L 0.01-0.08 IMMATURE GRANULOCYTES-RELATIVE PERCENT (BEAKER) (test jafn=9505) 0 % 0-1 BASIC METABOLIC [id number] 05:47:00* Test Item Value Reference Range Comments SODIUM (BEAKER) (test nvdt=491) 136 meq/L 136-145 POTASSIUM (BEAKER) (test apwe=585) 4.0 meq/L 3.5-5.1 Specimen slightly hemolyzed CHLORIDE (BEAKER) (test aexq=080) 107 meq/L 98-107 CO2 (BEAKER) (test motb=977) 21 meq/L 22-29 BLOOD UREA NITROGEN (BEAKER) (test waei=904) 7 mg/dL 7-21 CREATININE (BEAKER) (test atpp=808) 0.71 mg/dL 0.57-1.25 Specimen slightly hemolyzed GLUCOSE RANDOM (BEAKER) (test dfrf=428) 90 mg/dL 70-105 CALCIUM (BEAKER) (test sbav=135) 8.1 mg/dL 8.4-10.2 EGFR (BEAKER) (test jbke=7651) 108 mL/min/1.73 sq m ESTIMATED GFR IS NOT ACCURATE CREATININE CLEARANCE IN PREDICTING GLOMERULAR FILTRATION RATE. ESTIMATED GFR IS NOT APPLICABLE FOR DIALYSIS PATIENTS. CBC W/PLT COUNT & AUTO [id number] 05:30:00* Test Item Value Reference Range Comments WHITE BLOOD CELL COUNT (BEAKER) (test gzrd=778) 7.4 K/ L 3.5-10.5 RED BLOOD CELL COUNT (BEAKER) (test rvji=160) 3.62 M/ L 4.63-6.08 HEMOGLOBIN (BEAKER) (test iwyl=343) 13.1 GM/DL 13.7-17.5 HEMATOCRIT (BEAKER) (test kblu=698) 39.4 % 40.1-51.0 MEAN CORPUSCULAR VOLUME (BEAKER) (test jfhm=108) 108.8 fL 79.0-92.2 MEAN CORPUSCULAR HEMOGLOBIN (BEAKER) (test yknn=307) 36.2 pg 25.7-32.2 MEAN CORPUSCULAR HEMOGLOBIN CONC (BEAKER) (test aajq=719) 33.2 GM/DL 32.3-36.5 RED CELL DISTRIBUTION WIDTH (BEAKER) (test vcqu=484) 14.3 % 11.6-14.4 PLATELET COUNT (BEAKER) (test ekue=960) 149 K/CU MM 150-450 MEAN PLATELET VOLUME (BEAKER) (test gjsx=901) 11.1 fL 9.4-12.4 NUCLEATED RED BLOOD CELLS (BEAKER) (test fdju=655) 0 /100 WBC 0-0 NEUTROPHILS RELATIVE PERCENT (BEAKER) (test oijb=635) 54 % LYMPHOCYTES RELATIVE PERCENT (BEAKER) (test dxtq=546) 31 % MONOCYTES RELATIVE PERCENT (BEAKER) (test vdhg=558) 12 % EOSINOPHILS RELATIVE PERCENT (BEAKER) (test afho=022) 3 % BASOPHILS RELATIVE PERCENT (BEAKER) (test lgod=410) 0 % NEUTROPHILS ABSOLUTE COUNT (BEAKER) (test fpvv=105) 3.98 K/ L 1.78-5.38 LYMPHOCYTES ABSOLUTE COUNT (BEAKER) (test syoa=326) 2.31 K/ L 1.32-3.57 MONOCYTES ABSOLUTE COUNT (BEAKER) (test motu=247) 0.87 K/ L 0.30-0.82 EOSINOPHILS ABSOLUTE COUNT (BEAKER) (test bycq=115) 0.22 K/ L 0.04-0.54 BASOPHILS ABSOLUTE COUNT (BEAKER) (test oawr=127) 0.03 K/ L 0.01-0.08 IMMATURE GRANULOCYTES-RELATIVE PERCENT (BEAKER) (test lvuo=9789) 0 % 0-1 BASIC METABOLIC [id number] 12:04:00* Test Item Value Reference Range Comments SODIUM (BEAKER) (test wbon=560) 137 meq/L 136-145 POTASSIUM (BEAKER) (test jywf=929) 3.7 meq/L 3.5-5.1 CHLORIDE (BEAKER) (test pgcw=490) 111 meq/L 98-107 CO2 (BEAKER) (test mxpt=180) 21 meq/L 22-29 BLOOD UREA NITROGEN (BEAKER) (test duqq=849) 10 mg/dL 7-21 CREATININE (BEAKER) (test bkgm=016) 0.70 mg/dL 0.57-1.25 GLUCOSE RANDOM (BEAKER) (test gapm=297) 92 mg/dL 70-105 CALCIUM (BEAKER) (test vqrw=513) 8.1 mg/dL 8.4-10.2 EGFR (BEAKER) (test anfk=5061) 110 mL/min/1.73 sq m ESTIMATED GFR IS NOT ACCURATE CREATININE CLEARANCE IN PREDICTING GLOMERULAR FILTRATION RATE. ESTIMATED GFR IS NOT APPLICABLE FOR DIALYSIS PATIENTS. Specimen slightly ictericCBC W/PLT COUNT & AUTO [id number] 11:52:00 * Test Item Value Reference Range Comments WHITE BLOOD CELL COUNT (BEAKER) (test ifrz=884) 7.7 K/ L 3.5-10.5 RED BLOOD CELL COUNT (BEAKER) (test juez=261) 3.62 M/ L 4.63-6.08 HEMOGLOBIN (BEAKER) (test ovff=813) 13.0 GM/DL 13.7-17.5 HEMATOCRIT (BEAKER) (test bqzv=702) 38.5 % 40.1-51.0 MEAN CORPUSCULAR VOLUME (BEAKER) (test cvml=822) 106.4 fL 79.0-92.2 MEAN CORPUSCULAR HEMOGLOBIN (BEAKER) (test ozpt=217) 35.9 pg 25.7-32.2 MEAN CORPUSCULAR HEMOGLOBIN CONC (BEAKER) (test yuzg=536) 33.8 GM/DL 32.3-36.5 RED CELL DISTRIBUTION WIDTH (BEAKER) (test prsj=839) 14.2 % 11.6-14.4 PLATELET COUNT (BEAKER) (test efuf=415) 138 K/CU MM 150-450 MEAN PLATELET VOLUME (BEAKER) (test rnbp=053) 11.0 fL 9.4-12.4 NUCLEATED RED BLOOD CELLS (BEAKER) (test qsgf=308) 0 /100 WBC 0-0 NEUTROPHILS RELATIVE PERCENT (BEAKER) (test tfuc=146) 56 % LYMPHOCYTES RELATIVE PERCENT (BEAKER) (test baxy=425) 28 % MONOCYTES RELATIVE PERCENT (BEAKER) (test sjvs=412) 13 % EOSINOPHILS RELATIVE PERCENT (BEAKER) (test njro=399) 2 % BASOPHILS RELATIVE PERCENT (BEAKER) (test ybec=144) 0 % NEUTROPHILS ABSOLUTE COUNT (BEAKER) (test qlmj=790) 4.31 K/ L 1.78-5.38 LYMPHOCYTES ABSOLUTE COUNT (BEAKER) (test yjyy=135) 2.17 K/ L 1.32-3.57 MONOCYTES ABSOLUTE COUNT (BEAKER) (test kgbq=878) 1.01 K/ L 0.30-0.82 EOSINOPHILS ABSOLUTE COUNT (BEAKER) (test qxpv=174) 0.16 K/ L 0.04-0.54 BASOPHILS ABSOLUTE COUNT (BEAKER) (test xhnz=108) 0.03 K/ L 0.01-0.08 IMMATURE GRANULOCYTES-RELATIVE PERCENT (BEAKER) (test kbtt=4615) 0 % 0-1 BASIC METABOLIC [id number] 22:30:00* Test Item Value Reference Range Comments SODIUM (BEAKER) (test ztcy=407) 134 meq/L 136-145 POTASSIUM (BEAKER) (test azpy=202) 3.6 meq/L 3.5-5.1 CHLORIDE (BEAKER) (test cjwm=226) 108 meq/L 98-107 CO2 (BEAKER) (test iyjw=969) 19 meq/L 22-29 BLOOD UREA NITROGEN (BEAKER) (test iinf=240) 12 mg/dL 7-21 CREATININE (BEAKER) (test vgli=081) 0.77 mg/dL 0.57-1.25 GLUCOSE RANDOM (BEAKER) (test wtgr=156) 132 mg/dL 70-105 CALCIUM (BEAKER) (test sipo=708) 8.3 mg/dL 8.4-10.2 EGFR (BEAKER) (test uepr=7455) 99 mL/min/1.73 sq m ESTIMATED GFR IS NOT ACCURATE CREATININE CLEARANCE IN PREDICTING GLOMERULAR FILTRATION RATE. ESTIMATED GFR IS NOT APPLICABLE FOR DIALYSIS PATIENTS. Specimen slightly ictericHEPATIC FUNCTION [id number] 22:30:00* Test Item Value Reference Range Comments TOTAL PROTEIN (BEAKER) (test ndit=660) 6.5 gm/dL 6.0-8.3 ALBUMIN (BEAKER) (test pkuy=1580) 3.0 g/dL 3.5-5.0 BILIRUBIN TOTAL (BEAKER) (test rqei=340) 2.7 mg/dL 0.2-1.2 BILIRUBIN DIRECT (BEAKER) (test norf=952) 1.4 mg/dL 0.1-0.5 ALKALINE PHOSPHATASE (BEAKER) (test incw=762) 124 U/L 40-150 AST (SGOT) (BEAKER) (test bnem=102) 16 U/L 5-34 ALT (SGPT) (BEAKER) (test vmrs=807) 14 U/L 6-55 Specimen slightly [id number] 22:30:00* Test Item Value Reference Range Comments LIPASE (BEAKER) (test qwjm=852) 21 U/L 8-78 Specimen slightly ictericCBC W/PLT COUNT & AUTO [id number] 22:12:00 * Test Item Value Reference Range Comments WHITE BLOOD CELL COUNT (BEAKER) (test fosk=403) 10.3 K/ L 3.5-10.5 RED BLOOD CELL COUNT (BEAKER) (test lkkr=528) 3.80 M/ L 4.63-6.08 HEMOGLOBIN (BEAKER) (test mwbz=987) 13.6 GM/DL 13.7-17.5 HEMATOCRIT (BEAKER) (test lbou=033) 40.3 % 40.1-51.0 MEAN CORPUSCULAR VOLUME (BEAKER) (test gopp=922) 106.1 fL 79.0-92.2 MEAN CORPUSCULAR HEMOGLOBIN (BEAKER) (test pbps=824) 35.8 pg 25.7-32.2 MEAN CORPUSCULAR HEMOGLOBIN CONC (BEAKER) (test jmav=972) 33.7 GM/DL 32.3-36.5 RED CELL DISTRIBUTION WIDTH (BEAKER) (test jqrx=718) 14.3 % 11.6-14.4 PLATELET COUNT (BEAKER) (test sqnr=568) 157 K/CU MM 150-450 MEAN PLATELET VOLUME (BEAKER) (test sulu=158) 10.8 fL 9.4-12.4 NUCLEATED RED BLOOD CELLS (BEAKER) (test ihwk=425) 0 /100 WBC 0-0 NEUTROPHILS RELATIVE PERCENT (BEAKER) (test iyft=922) 59 % LYMPHOCYTES RELATIVE PERCENT (BEAKER) (test nxgv=803) 28 % MONOCYTES RELATIVE PERCENT (BEAKER) (test mwff=303) 11 % EOSINOPHILS RELATIVE PERCENT (BEAKER) (test anwd=730) 1 % BASOPHILS RELATIVE PERCENT (BEAKER) (test iydi=412) 0 % NEUTROPHILS ABSOLUTE COUNT (BEAKER) (test umbv=919) 6.05 K/ L 1.78-5.38 LYMPHOCYTES ABSOLUTE COUNT (BEAKER) (test wwmm=105) 2.86 K/ L 1.32-3.57 MONOCYTES ABSOLUTE COUNT (BEAKER) (test tkhd=228) 1.17 K/ L 0.30-0.82 EOSINOPHILS ABSOLUTE COUNT (BEAKER) (test ktyn=411) 0.14 K/ L 0.04-0.54 BASOPHILS ABSOLUTE COUNT (BEAKER) (test rgsf=043) 0.03 K/ L 0.01-0.08 IMMATURE GRANULOCYTES-RELATIVE PERCENT (BEAKER) (test xvkx=7938) 1 % 0-1 CT, SPINE, LUMBAR, WO [id number] 21:09:00Reason for exam:->BACK PAINworsening over the last few days. What is the patient's sedation requir ement?->No SedationFINAL REPORT CT, SPINE, LUMBAR, WO CONTRAST INDICATION: BACK PAINback pain COMPARISON: Correlation plain film series of [...] consider MRI follow-up. Signed: JR King Robert MDReport Verified Date/Time: 02/01/2018 21:09:21 Reading Location: [facility] C013Y CT Body Reading Room , SPINE, LUMBAR, COMPLETE (MIN 4 VIEWS)2018-02-01 20:56:00Reason for exam:->BACK PAINworsening over the last few days.FINAL REPORT HISTORY:Pain. FINDINGS: Five views of the [...] clinically indicated. Signed: Steven De La Cruz Verified Date/Time: 02/01/2018 20:56:47 Reading Location: [address] Reading Room , SPINE, THORACIC, WO [id number] 20:51:00Reason for exam:->BACK PAINworsening over the last few days. What is the patient's sedation requirement?->No SedationFINAL REPORT CT thoracic spine without contrast 02/01/2018 [...] osteoblastic lesions. Spinal canal diameter is within no rmal limits. There are multilevel degenerative changes, without high-grade centr al canal stenosis. Patchy opacity in the right upper lobe is concerning for pneu monia or aspiration pneumonitis. A TIPS stent is present. IMPRESSION: 1. Mild irizarry perior T12 compression fracture without spinal canal compromise. 2. Right upper lobe pneumonia versus aspiration pneumonitis. Signed: Ronaldo Hajiort Courtney erified Date/Time: 02/01/2018 20:51:05 Reading Location: [facility] Reading Room
--- NOTE | 2018-11-02 15:50 | NUR ---
CALLED ECHOVASCULAR TECH TO REQUEST STAT VENOUS SONOGRAM OF RLE.
[2018-11-02 16:00] LABS: BASOPHILS % 0.4 % (0.0-1.0); EOSINOPHILS # (AUTO) 0.1 (0.0-0.4); EOSINOPHILS % 1.4 % (0.0-6.0); HEMATOCRIT 40.2 % (38.2-49.6); HEMOGLOBIN 13.9 g/dL (14.0-18.0); MEAN CORPUSCULAR HEMOGLOBIN 36.1 pg (28-32); MEAN CORPUSCULAR HGB CONC 34.6 g/dL (31-35); MEAN CORPUSCULAR VOLUME 104.4 fL (81-99); MONOCYTES # (AUTO) 0.7 (0.2-0.8); MONOCYTES % 9.2 % (4.4-11.3); NEUTROPHILS # (AUTO) 4.3 (2.1-6.9); NEUTROPHILS % 60.7 % (38.7-80.0); PLATELET COUNT 129 x10e3/uL (140-360); RED BLOOD COUNT 3.85 x10e6/uL (4.3-5.7); RED CELL DISTRIBUTION WIDTH 14.6 % (11.7-14.4)
--- NOTE | 2018-11-02 16:05 | NUR ---
RADIOLOGY AT BEDSIDE AT THIS TIME FOR LOWER EXTREMITY X-RAY.
[2018-11-02 16:07] LABS: INR 1.43
--- NOTE | 2018-11-02 16:08 | NUR ---
ECHOVASCULAR TECH AT BEDSIDE FOR EXAM AT THIS TIME.
[2018-11-02 16:16] LABS: ALANINE AMINOTRANSFERASE 16 IU/L (0-55); ALBUMIN 2.9 g/dL (3.5-5.0); ALBUMIN/GLOBULIN RATIO 0.8 (0.8-2.0); ALKALINE PHOSPHATASE 90 IU/L (40-150); ANION GAP 12.9 mmol/L (8-16); BLOOD UREA NITROGEN 9 mg/dL (7-26); BUN/CREATININE RATIO 11 (6-25); CALCIUM 8.6 mg/dL (8.4-10.2); CARBON DIOXIDE 23 mmol/L (22-29); CHLORIDE 104 mmol/L (98-107); CREATININE, SERUM 0.81 mg/dL (0.72-1.25); EST GLOMERULAR FILTRATION RATE > 60 ML/MIN (60-); GLUCOSE 131 mg/dL (74-118); POTASSIUM 3.9 mmol/L (3.5-5.1); SODIUM 136 mmol/L (136-145)
--- NOTE | 2018-11-02 16:22 | Diagnostic Imaging Report ---
Exam: Right lower leg, 2 views History: Swelling, concern for foreign body. Comparison: None. Findings: No acute, displaced fracture or dislocation. Partially visualized knee and ankle joint spaces are well-maintained. Probable bandage material overlies the anterior surface of the lower leg at the level of the midshaft of the tibia. No radiopaque foreign body or subcutaneous gas. Impression: No acute osseous abnormality. No radiopaque foreign body or subcutaneous gas per clinical query. Signed by: Dr. Kian Yepez M.D. on 11/02/2018 4:18 PM
--- NOTE | 2018-11-02 20:45 | NUR ---
RECEIVED CALL FROM LAB TO INFORM OF CRITICAL LACTIC ACID; SPECIMEN WAS DRAWN BY [employer] WIRING TECHNICIAN; INFORMED CAITLYN JO ENP; RECEIVED ORDERS TO REDRAW SPECIMEN AT 2130.
[2018-11-02 22:50] VITALS: BP 135/74
== END | disposition home or self-care (01) ==
LOC: ER 14:55
DX: M79.661 Pain in right lower leg (principal); L03.115 Cellulitis of right lower limb; L02.415 Cutaneous abscess of right lower limb; R73.9 Hyperglycemia, unspecified; J44.9 Chronic obstructive pulmonary disease, unspecified; E03.9 Hypothyroidism, unspecified; K74.60 Unspecified cirrhosis of liver; B19.20 Unspecified viral hepatitis C without hepatic coma; Z89.512 Acquired absence of left leg below knee
CPT/HCPCS: 36415; 73590; 80053; 83605; 83735; 85025; 85610; 85730; 87040; 93971; 99284; J7030

== ENCOUNTER 2019-06-20 12:02 | Observation (INO) | payer MEDICARE ==
[~2019-06-20] VITALS: Ht 172.7 cm; Wt 94.8 kg
[~2019-06-20 12:02] MED LIST changes: -CLINDAMYCIN PHOS 900MG/ 50ML 50 ML IV STA; -SODIUM CHLORIDE 0.9% 1000ML 1,000 ML IV SCH
[2019-06-20] MEDS ORDERED: ALBUTEROL SULF 0.083% NEB SOLN 3 ML NEB NEB STA (12:22)
[2019-06-20] MEDS ORDERED: IPRATROPIUM BROMIDE 0.02% 2.5 ML NEB NEB ONE (12:30)
[2019-06-20] MEDS ORDERED: METHYLPREDNISOLONE SOD SUCC 125 MG/2ML VIAL IV ONE (12:45)
[2019-06-20] MEDS: CEFTRIAXONE SOD 1 GM/NS 50 ML 50 ML IV SCH (13:18)
[2019-06-20 13:33] LABS: BASOPHILS % 0.2 % (0.0-1.0); EOSINOPHILS # (AUTO) 0.1 (0.0-0.4); EOSINOPHILS % 1.2 % (0.0-6.0); HEMATOCRIT 41.5 % (38.2-49.6); HEMOGLOBIN 14.4 g/dL (14.0-18.0); LYMPHOCYTES # (AUTO) 2.4 (1.0-3.2); LYMPHOCYTES % 49.5 % (18.0-39.1); MEAN CORPUSCULAR HEMOGLOBIN 36.6 pg (28-32); MEAN CORPUSCULAR HGB CONC 34.7 g/dL (31-35); MEAN CORPUSCULAR VOLUME 105.6 fL (81-99); MONOCYTES # (AUTO) 0.5 (0.2-0.8); NEUTROPHILS # (AUTO) 1.8 (2.1-6.9); NEUTROPHILS % 37.9 % (38.7-80.0); PLATELET COUNT 96 x10e3/uL (140-360); RED BLOOD COUNT 3.93 x10e6/uL (4.3-5.7); RED CELL DISTRIBUTION WIDTH 14.7 % (11.7-14.4)
[2019-06-20 13:43] LABS: INR 1.29; PROTHROMBIN TIME 16.9 seconds (11.9-14.5)
[2019-06-20 13:44] LABS: PARTIAL THROMBOPLASTIN TIME 38.8 seconds (23.8-35.5)
[2019-06-20 13:47] LABS: STREPTOCOCCUS GRP A ANTIGEN NEGATIVE (NEGATIVE)
--- NOTE | 2019-06-20 13:47 | Diagnostic Imaging Report ---
Chest, portable AP view History: Cough, shortness of breath Comparison: No comparisons available for review IMPRESSION: There is a 4.7 cm diameter opacity in the right upper lobe is concerning for a mass lesion. Further evaluation with chest CT is recommended. The heart is within normal limits of size. Prominence of the right hilum may be secondary to adenopathy or a prominent pulmonary artery. No sizable pleural effusion or pneumothorax. Signed by: Gumaro Wilson MD on 06/20/2019 1:44 PM
[2019-06-20 13:49] LABS: INFLUENZAE A&B ANTIGEN (RAPID) NEGATIVE (NEGATIVE)
[2019-06-20 13:55] LABS: ALANINE AMINOTRANSFERASE 30 IU/L (0-55); ALBUMIN 2.9 g/dL (3.5-5.0); ALBUMIN/GLOBULIN RATIO 0.7 (0.8-2.0); ALKALINE PHOSPHATASE 125 IU/L (40-150); ANION GAP 14.2 mmol/L (8-16); BLOOD UREA NITROGEN 10 mg/dL (7-26); BUN/CREATININE RATIO 9 (6-25); CALCIUM 8.3 mg/dL (8.4-10.2); CARBON DIOXIDE 23 mmol/L (22-29); CHLORIDE 102 mmol/L (98-107); CREATINE KINASE 71 IU/L (30-200); EST GLOMERULAR FILTRATION RATE > 60 ML/MIN (60-); GLUCOSE 106 mg/dL (74-118); MAGNESIUM 1.4 MG/DL (1.3-2.1); POTASSIUM 3.2 mmol/L (3.5-5.1); SODIUM 136 mmol/L (136-145)
[2019-06-20] MEDS ORDERED: SODIUM CHLORIDE 0.9% 1000ML 1,000 ML IV SCH (14:17)
[2019-06-20 14:27] LABS: BILIRUBIN,URINE NEGATIVE (NEGATIVE); CLARITY,URINE CLEAR (CLEAR); COLOR,URINE YELLOW (YELLOW); KETONES,URINE NEGATIVE (NEGATIVE); LEUKOCYTE ESTERASE ,URINE NEGATIVE (NEGATIVE); NITRITE,URINE NEGATIVE (NEGATIVE); PROTEIN,URINE DIPSTICK NEGATIVE (NEGATIVE); URINE UROBILINOGEN 0.2 mg/dL (0.2 - 1)
[2019-06-20] MEDS ORDERED: ONDANSETRON HCL INJ 2MG/ML 2ML 2 MG/ML VIAL IV PRN (14:30)
[2019-06-20 14:37] LABS: BACTERIA,URINE MODERATE /HPF; EPITHELIAL CELLS,URINE FEW /LPF
[2019-06-20] MEDS: AZITHROMYCIN 500MG/NS 250 ML 250 ML IV SCH (15:13)
[2019-06-20] MEDS ORDERED: SODIUM CHLORIDE 0.9% 50ML 50 ML ONE (15:22)
[2019-06-20] MEDS ORDERED: IOPAMIDOL 370 MG/ML 200 ML INFUS..BTL INJ ONE (15:22)
--- NOTE | 2019-06-20 15:38 | Diagnostic Imaging Report ---
CT of the chest, with contrast History: Possible mass. Comparison: Chest radiograph dated today. Technique: Multidetector CT scanning of the chest was performed from the level of the thoracic inlet to the upper abdomen with IV contrast. Dose reduction: The examination was performed according to departmental dose-optimization program which includes automated exposure control, adjustment of the mA and/or kV according to patient size and/or use of iterative reconstruction technique. Findings: The visualized thyroid gland is unremarkable. There is no axillary, mediastinal, or hilar lymphadenopathy. The heart is within normal limits of size. There is no pericardial effusion. The thoracic aorta is of normal course and caliber. The main pulmonary artery is enlarged measuring 4.1 cm in diameter. The trachea and central airways are clear. The lungs demonstrate multifocal patchy and groundglass opacities which are most pronounced in the right upper lobe and account for the findings on recent chest radiograph. Opacities are also seen in the left upper lobe and right lower lobe. Findings are most likely secondary to multifocal pneumonia. There is no pleural effusion or pneumothorax. Limited evaluation of the upper abdomen demonstrates a TIPS stent in place. The liver has a cirrhotic morphology. Calcified gallstones are present without evidence of acute cholecystitis. Cysts are identified in the upper pole of the left kidney. No acute osseous abnormalities are identified. IMPRESSION: 1. Multifocal patchy and groundglass opacities in the right upper, right lower, and left upper lobes concerning for multifocal pneumonia. Recommend follow-up chest radiographs in 6-8 weeks after course of treatment to document resolution. 2. Enlarged pulmonary artery. Correlate with underlying pulmonary arterial hypertension. 3. Cirrhosis. TIPS is in place. 4. Cholelithiasis without evidence of acute cholecystitis. Signed by: Gumaro Wilson MD on 06/20/2019 3:36 PM
[2019-06-20] MEDS ORDERED: POTASSIUM CHLORIDE 20 MEQ TAB CR PO STA (16:14)
[2019-06-20 17:00] VITALS: BP 107/58
--- NOTE | 2019-06-20 17:00 | NUR ---
Pt received from ER at this time. Pt is aox4 and able to verbalize needs. Denies any pain at this time. Pt is on 02 4L/nc and well tolerated. Complains of SOB with exertion. Pt has LBKA with prosthetis. He was seen by Dr. Mena in ER.
[2019-06-20] MEDS ORDERED: NON-FORMULARY MEDICATION (Ropinirole Hcl 0.5 MG) PO SCH (18:45)
[2019-06-20] MEDS ORDERED: LACTULOSE PO SCH (18:45)
[2019-06-20] MEDS ORDERED: TRAMADOL HCL 50 MG TAB PO PRN (18:45)
--- NOTE | 2019-06-20 19:13 | NUR ---
Received bedside report from day nurse. Patient awake and resting in bed, no s/s of distress or c/o pain at this time. All safety measures in place. Family at bedside. Will continue to monitor.
[2019-06-20 20:02] VITALS: BP 103/54
[2019-06-20 20:08] VITALS: BP 103/54
[2019-06-20] MEDS: ALBUTEROL/IPRATROPIUM 3 ML NEB NEB SCH (20:10)
[2019-06-20 20:23] LABS: LYMPHOCYTES % (MANUAL) 49 % (19-48); MONOCYTES % (MANUAL) 7 % (3.4-9.0); NEUTROPHILS % (MANUAL) 33 % (40-74); RBC MORPHOLOGY COMMENT NORMAL
[2019-06-20 20:24] LABS: PLATELET ESTIMATE SLIGHTLY DECREASED; PLATELET MORPHOLOGY COMMENT NORMAL
[2019-06-20] MEDS ORDERED: ROPINIROLE HCL 0.25 MG TAB PO SCH (21:00)
[2019-06-21] MEDS ORDERED: SODIUM CHLORIDE 0.9% 250ML 250 ML ONE (00:12)
[2019-06-21 00:25] VITALS: BP 104/56
[2019-06-21 04:25] VITALS: BP 113/56
[2019-06-21] MEDS ORDERED: LEVOTHYROXINE SODIUM 50 MCG TAB PO SCH (06:00)
[2019-06-21] MEDS: ALBUTEROL/IPRATROPIUM 3 ML NEB NEB SCH ×3 (06:16→14:50)
--- NOTE | 2019-06-21 07:01 | NUR ---
Bedside report given to day nurse. Patient awake and sitting up in bed, no s/s of distress at this time. All safety measures in place. Family at bedside.
[2019-06-21 07:31] LABS: EOSINOPHILS # (AUTO) 0.1 (0.0-0.4); EOSINOPHILS % 1.6 % (0.0-6.0); HEMATOCRIT 38.9 % (38.2-49.6); HEMOGLOBIN 13.7 g/dL (14.0-18.0); LYMPHOCYTES # (AUTO) 1.6 (1.0-3.2); MEAN CORPUSCULAR HEMOGLOBIN 36.5 pg (28-32); MEAN CORPUSCULAR HGB CONC 35.2 g/dL (31-35); MEAN CORPUSCULAR VOLUME 103.7 fL (81-99); MONOCYTES # (AUTO) 0.4 (0.2-0.8); MONOCYTES % 4.7 % (4.4-11.3); NEUTROPHILS # (AUTO) 5.8 (2.1-6.9); NEUTROPHILS % 73.6 % (38.7-80.0); PLATELET COUNT 92 x10e3/uL (140-360); RED BLOOD COUNT 3.75 x10e6/uL (4.3-5.7); RED CELL DISTRIBUTION WIDTH 14.2 % (11.7-14.4)
[2019-06-21 07:45] LABS: ALANINE AMINOTRANSFERASE 28 IU/L (0-55); ALBUMIN 2.7 g/dL (3.5-5.0); ALBUMIN/GLOBULIN RATIO 0.6 (0.8-2.0); ALKALINE PHOSPHATASE 120 IU/L (40-150); ANION GAP 14.5 mmol/L (8-16); BLOOD UREA NITROGEN 13 mg/dL (7-26); BUN/CREATININE RATIO 14 (6-25); CARBON DIOXIDE 18 mmol/L (22-29); CHLORIDE 103 mmol/L (98-107); CREATININE, SERUM 0.96 mg/dL (0.72-1.25); EST GLOMERULAR FILTRATION RATE > 60 ML/MIN (60-); GLUCOSE 178 mg/dL (74-118); POTASSIUM 4.5 mmol/L (3.5-5.1); SODIUM 131 mmol/L (136-145)
[2019-06-21 07:49] VITALS: BP 116/64
--- NOTE | 2019-06-21 08:00 | NUR ---
The pt expressed to me that he thinks he needs antibiotics more than once a day "because he feels that he is not improving" I advised the pt. that when the makes rounds the will be made aware of his concerns.
[2019-06-21 08:05] LABS: MAGNESIUM 1.5 MG/DL (1.3-2.1)
--- NOTE | 2019-06-21 08:35 | Diagnostic Imaging Report ---
Exam: Chest one view Comparison: June 20, 2019 Clinical history: Shortness of breath Findings: There is interval improvement in the right upper lobe pulmonary opacities which may represent resolving pneumonitis. However, repeat chest radiograph after treatment is recommended to ensure complete resolution and rule out underlying pathology. There is persistent cardiomegaly. There is no evidence of pleural effusion or pneumothorax. The regional osseous structures are unremarkable. Signed by: Dr. Richardson Graves MD on 06/21/2019 8:32 AM
[2019-06-21] MEDS ORDERED: LACTULOSE SYRUP 20 GM/30 ML UDC PO SCH (09:00)
[2019-06-21] MEDS ORDERED: RIFAXIMIN 550 MG TABLET PO SCH (09:00)
[2019-06-21 09:06] VITALS: BP 116/64
[2019-06-21 11:37] VITALS: BP 111/65
[2019-06-21] MEDS ORDERED: ONDANSETRON HCL 4 MG ORAL DISINTEGRATING TAB PO PRN (11:45)
[2019-06-21] MEDS: CEFTRIAXONE SOD 1 GM/NS 50 ML 50 ML IV SCH (12:15)
[2019-06-21] MEDS: AZITHROMYCIN 500MG/NS 250 ML 250 ML IV SCH (13:10)
--- NOTE | 2019-06-21 16:00 | NUR ---
The pt. was escorted to private car via w/c for transport home. Hw was provided prescription and follow up information.
[2019-06-21 16:15] VITALS: BP 113/56
--- NOTE | 2019-06-22 13:35 | Discharge Summary ---
PRIMARY CARE DOCTOR: Ovidio Perez M.D. FINAL DIAGNOSIS: Bilateral multifocal pneumonia. SECONDARY DIAGNOSES: 1. Cirrhosis, status post transjugular intrahepatic portosystemic shunt. 2. Chronic obstructive pulmonary disease. 3. Asymptomatic gallstones. 4. Hypothyroidism. 5. Hypertension. 6. Previous left below-knee amputation. 7. Hyponatremia. CONSULTANTS: None. PROCEDURES/STUDIES PERFORMED: Chest CT. HISTORY: Per H and P. HOSPITAL COURSE: The patient was started on IV Rocephin and azithromycin. The patient improved. At this time, he is almost back to baseline. Therefore, the patient will be discharged home on doxycycline for 5 more days to complete a one-week course. His hyponatremia is due to cirrhosis. The patient was advised not to drink anymore. The patient has chronic thrombocytopenia. Therefore, no chemical DVT prophylaxis was given here. I have updated his at the bedside as well. The patient was seen and examined today. It took 32 minutes total to discharge this patient. The patient will follow up with his PCP in one week. CONDITION ON DISCHARGE: Improved. DISCHARGE MEDICATIONS: Please see medication reconciliation form. Yiching MD CHRISTOPHER Downs/JIGAR /[id number] cc: [facility]
== END 2019-06-21 16:45 | disposition home or self-care (01) ==
LOC: ER 12:02 → ERHOLD 14:17 → MED/SURG3 16:44
PROVIDERS: ADMIT Internal Medicine; ATTEND Internal Medicine
DX: J15.9 Unspecified bacterial pneumonia (principal); R09.02 Hypoxemia; Z88.8 Allergy status to other drugs, medicaments and biological substances; K74.60 Unspecified cirrhosis of liver; E87.6 Hypokalemia; D69.6 Thrombocytopenia, unspecified; J44.9 Chronic obstructive pulmonary disease, unspecified; K80.20 Calculus of gallbladder without cholecystitis without obstruction; E03.9 Hypothyroidism, unspecified; I10 Essential (primary) hypertension; Z89.512 Acquired absence of left leg below knee; E87.1 Hypo-osmolality and hyponatremia
CPT/HCPCS: 36415 ×2; 71045 ×2; 71260; 80053 ×2; 81001; 82550; 82553; 83518; 83735 ×2; 83880; 84484 ×2; 85025 ×2; 85610; 85730; 87040; 87070; 87086; 87400; 93005 ×2; 94640 ×4; 99284; G0378 ×2; J0456 ×2; J0696 ×2; J2930; J7050; Q9967

== ENCOUNTER 2019-10-18 17:44 | Inpatient (IN) | payer MEDICARE ==
[~2019-10-18] VITALS: Ht 172.7 cm; Wt 81.6 kg
--- OUTSIDE RECORDS SUMMARY | 2019-10-18 17:47 | XMS REPORT | Clinical Summary ---
Author Author [facility] Address Unknown Phone Unavailable Care Team Providers Care Drain Technician Name Role Phone Ovidio Perez MD PCP [...] Packs/Day Years Used Former Smoker Cigarettes 1 Drinks/Week oz/Week Comments Alcohol Use 2 beer a day Yes Sex Assigned at Date Recorded Not on file Industry Job Start Date Occupation Not on file Not on file Not on file Travel End Travel History Travel Start No recent travel history available. Last Filed Vital Signs Not on file Plan of Treatment Not on file Implants Device Identifier Shelf Expiration Date Model / Serial / L ot Implanted Type Area Manufactur er 02/06/2021 [id number] / / [id number] Implant Clgn Soft-Tissue Renfrcmnt Human Left: Eye STRYKERCRA 2x5cm 1mm Enduragen - [id number] Tissue NIOMAX ILLO Implanted: Qty: 1 on 06/11/2017 by Implants Ivan Bee MD at [facility] [id number] / / Screw - [id number] IPM Left: Eye АЛЕКСАНДР Implanted: Qty: 2 on 10/16/2016 by IMPLANT ORT HOPEDIC Ivan Burgess MD at [facility] S [facility] Description:SELF DRILLING SCREW [id number] QTY 2; NO EXPIRATION DATE AVAILABLE. [id number] / / 1.2x4mm Self Drilng Upperface - IPM Left: Eye АЛЕКСАНДР [id number] IMPLANT CRANIOMAXI Implanted: Qty: 2 on 10/16/2016 by DEVICES LLO FACIAL Ivan Burgess MD at [facility] 11/16/2020 [id number] / / [id number] Implant Rim Orbtl Medpor Extnd Lt Ophthalmic Left: Eye STRYKERCRA 47mm 40mm - [id number] Implants NIOMAXILLO Implanted: Qty: 1 on 10/16/2016 by Ivan Dasilva MD at [facility] 02/06/2025 [id number] / / [id number] Implant Cranifcl Medpor Titan Surgical Left: Eye STRYKERCRA Barrier 24b45v8.6mm Pe - [id number] Implants; NIO MAXILLO Implanted: Qty: 1 on 10/16/2016 by Expanders; FAC Ivan Spencer MD at [facility] Ext[facility]; [facility] Surgical Wires Results Not on fileafter 10/17/2018 Insurance Type Payer Benefit Subscriber ID Effective Phone Address Plan / Dates Group [facility] x[facility]xx 2016- [facility] For more information, please contact: [phone] 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
--- OUTSIDE RECORDS SUMMARY | 2019-10-18 17:47 | XMS REPORT | Clinical Summary ---
Author Author [facility] Address Unknown Phone Unavailable Care Team Providers Care Mixer Dry Food Products Name Role Phone Ovidio Perez MD PCP Unavailable Allergies Comments Active Allergy Reactions Severity Noted [...] 20 MG Take 2 20 tablet 0 0 tabletIndications: tablets (40 9 accumulation of fluid mg total) by caused by cirrhosis of mouth daily. the liver Active gabapentin (NEURONTIN) Take 300 mg 0 300 MG capsule by mouth 3 (three) times daily. Active HYDROcodone-acetaminophen Take 1 tablet 0 (NORCO 10-325) 10-325 mg by mouth per tablet every 6 (six) hours as needed for Pain. Active Problems Problem Noted Date Acute exacerbation of chronic obstructive pulmonary d isease (COPD) 07/17/2018 LISA on CPAP 07/17/2018 Amputation of left lower extremity below knee 2015 Tremor 06/14/2015 Cirrhosis of liver without ascites 05/13/2015 Hypothyroidism 05/13/2015 RLS (restless legs syndrome) 05/13/2015 Encounters Care Team Description Date Type Specialty Avinash Chowdhury II, MD 10/06/2019 Office Visit Interventional Radi ology [place], Compression fracture of lumbar vertebra, initial encounter, unspecified lumbar vertebral level (HCC) (Primary Dx) 10/06/2019 Orders Only Radiology after 10/17/2018 Social History Date Tobacco Use Types Packs/Day [...] Vital Signs Time Taken Vital Sign Reading 10/06/2019 12:00 PM CDT Blood Pressure 116/62 10/06/2019 12:00 PM CDT Pulse 71 10/06/2019 12:00 PM CDT Temperature 36.7 C (98.1 F) 10/06/2019 12:00 PM CDT Respiratory Rate 19 10/06/2019 12:00 PM CDT Oxygen Saturation 100% - Inhaled Oxygen - Concentration 10/06/2019 12:00 PM CDT Weight 98.4 kg (217 lb) 10/06/2019 12:00 PM CDT Height 172.7 cm (5' 8") 10/06/2019 12:00 PM CDT Body Mass Index 32.99 Plan of Treatment Health Maintenance Due Date Last Done Comments MEDICARE ANNUAL WELLNESS 05/11/2018 (YEAR 2 or FIRST YEAR if no IPPE) PNEUMOCOCCAL 65+ Completed 07/10/2016, 016 LOW/MEDIUM RISK INFLUENZA VACCINE Completed 01/19/2019, 018, 02/10/2017, Additional history exists Results Not on fileafter 10/17/2018 Insurance Payer Benefit Subscriber ID Type Phone Address Plan / Group [facility] -[id number] Advance Directives For more information, please contact: [address] [address] Date Inactivated Comments Code Status Date Activated 07/24/2018 1:47 PM Full Code 07/17/2018 8:58 AM This code status was determined by: Patient 07/16/2018 11:00 PM Full Code 04/01/2018 4:54 PM This code status was determined by: Patient 02/07/2018 6:05 PM Full Code 02/02/2018 1:11 AM This code status was determined by: Patient
--- OUTSIDE RECORDS SUMMARY | 2019-10-18 17:48 | XMS REPORT | Continuity of Care Document ---
Author Author [facility] t Organization [facility] Address [address] [place] [address] Phone Unavailable Care Team Providers Care Cutter Machine Name Role Phone MARY MALONEY, LAMONTE PCP Unavailable Trenton MALONEY, Nate Da Silva Attphys Dusty Bruno DO Attphys Reji FUNES Attphys Unavailable MARIA G, Karel AMBICA Attphys Unavailable OFORDDIANE GAGNON Attphys Unavailable NATE CHOWDHURY Attphys Unavailable FIGUEROACHRIS Attphys Unavailable Reji FUNESCHING Admphys Unavailable ALFONSO ANDERSEN Admphys Unavailable NATE CHOWDHURY Admphys Unavailable CROGABRIEL CORTEZ Admphys Unavailable Payers Payer Name Policy Type Policy Number Effective Date Expiration Date Karel underwood [employer]AREK[employer]CARE MEDICARE ADVxxxxxxxxxxx xxxxxxxxxxx [facility] [employer]sey [employer] Medicare Advantage [id number] 2015 00:0 0:00 [facility] Problems Condition Name Condition Details Condition Category Status Onset Date Resolution Date Last Treatment Date Treating Clinician Comments Source Acute exacerbation of chronic obstructive pulmonary di sease (COPD) Acute exacerbation of chronic obstructive pulmonary disease (COPD) Disease Active 2018-07-17 00:00:00 [facility] LISA on CPAP LISA on CPAP Disease Active 2018-07-17 00:00:00 [facility] Amputation of left lower extremity below knee Amputati on of left lower extremity below knee Disease Active 2015-06-14 00:00:[address] [facility] Tremor Tremor Disease Active 2015-06-14 00:00:00 [facility] Cirrhosis of liver without ascites Cirrhosis of liver without as cites Disease Active 2015-05-13 00:00:00 [facility] Hypothyroidism Hypothyroidism Disease Active 2015-05-13 00:00:00 [facility] RLS (restless legs syndrome) RLS (restless legs syndrome) Disease Active 2015-05-13 00:00:00 [facility] Allergies, Adverse Reactions, Alerts Allergy Name Allergy Type Status Severity Reaction(s) Onset Date Inacti ve Date Treating Clinician Comments Source Pregabalin Allergy to Substance Active 2018-02-01 00:00:00 [facility] Pregabalin Propensity to adverse reactions Active 02-01 00:00:00 "Goes Crazy" [facility] Pregabalin Propensity to adverse reactions to drug Active 2016-10-16 00:00:00 Ronn perez Social History Social Habit Start Date Stop Date Quantity Comments Source History of tobacco use Cigarette Smoker Ronn Holcomb Sex Assigned At [facility] Alcohol Comment 2018-04-01 00:00:00 2018-04-01 00:00:00 2 beers daily [facility] Cigarettes smoked current (pack per day) - Reported 00:00:00 2017-06-16 00:00:00 Ronn Holcomb Alcohol intake 2017-06-16 00:00:00 2017-06-16 00:00:00 Current drinker of alcohol (finding) Ronn Holcomb Smoking Status Start Date Stop Date Source Former smoker 2019-10-06 00:00:00 2019-10-06 00:00:00 [facility] Medications Ordered Medication Name Filled Medication Name Start Date Stop Da te Current Medication? Ordering Clinician Indication Dosage Frequency Signature (SIG) Comments Components Source gabapentin (NEURONTIN) 300 MG capsule 2019-10-06 12:06:35 Yes 300mg Q.[id number] Take 300 mg by mouth 3 (three) times daily. [facility] HYDROcodone-acetaminophen (NORCO 10-325) 10-325 mg per table t 2019-10-06 12:06:35 Yes 1{tbl} Take 1 tab let by mouth every 6 (six) hours as needed for Pain. 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 [facility] fluticasone/salmeterol (ADVAIR HFA INHL) 2018-07-17 08:51:58 Yes Inhale by mouth via inhaler. [facility] tiotropium bromide (SPIRIVA RESPIMAT) 2.5 mcg/actuation Mist 2018-04-01 10:42:54 Yes 5ug Inhale 5 mcg by mouth v ia inhaler daily as needed . [facility] baclofen (LIORESAL) 10 MG tablet 2018-02-07 10:02:16 Yes 5mg Take 5 mg by mouth 3 (three) times daily as needed . [facility] risedronate (ACTONEL) 150 MG tablet 2018-02-02 01:07:03 Yes 150mg Take 150 mg by mouth every 30 (thirty) days with water on empty stomach, nothing by mouth or lie down for next 30 minutes. . [facility] spironolactone (ALDACTONE) 100 MG tablet 2018-02-01 17:16:27 Yes 100mg QD Take 100 mg by mouth daily. [facility] rOPINIRole (REQUIP) 2 MG tablet 2018-02-01 17:16:27 Yes 2mg Q.[id number] Take 2 mg by mouth 3 (three) times daily. [facility] levothyroxine (SYNTHROID, LEVOTHROID) 50 MCG tablet 02-01 17:16:27 Yes 50ug Take 50 mcg by mouth Every morning on an empty stomach. [facility] lactulose (CHRONULAC) 10 gram/15 mL (15 mL) solution 2 17:16:27 Yes 20g Q.[id number] Take 20 g by mouth 3 (thr ee) times daily. [facility] acetaminophen-codeine (TYLENOL WITH CODEINE #3) 300-30 mg pe r tablet 2017-06-11 16:46:47 Yes 1{tbl} Q4H Take 1 tablet by mouth every 4 (four) hours as needed for moderate pain. Calvin Holcomb clindamycin (CLEOCIN) 300 MG capsule 2017-06-11 16:46:47 Yes 300mg Q.[id number] Take 300 mg by mouth 3 (three) times a day. Ronn Holcomb furosemide (LASIX) 20 mg tablet 2017-06-11 16:46:47 Yes 20mg Q.5D Take 20 mg by mouth 2 (two) times a day. Anthony Holcomb levothyroxine (SYNTHROID, LEVOXYL) 88 mcg tablet 2017-06-11 16:46:47 Yes 88ug QD Take 88 mcg by mouth every morning. Ronn Holcomb rOPINIRole (REQUIP) 0.5 MG tablet 2017-06-11 16:46:47 Ye s .5mg Q.[id number] Take 0.5 mg by mouth 3 (three) times a day. Ronn Holcomb spironolactone (ALDACTONE) 100 MG tablet 2017-06-11 16:46:47 Yes 100mg QD Take 100 mg by mouth daily. Anthony Holcomb ranitidine (ZANTAC) 150 MG tablet 2017-06-11 16:46:47 Yes 150mg Q.5D Take 150 mg by mouth 2 (two) times a day. Ronn Holcomb budesonide-formoterol (SYMBICORT) 160-4.5 mcg/actuation inha ler 2017-06-11 16:46:47 Yes 2{puff} Q.5D Inhale 2 puffs 2 (two) times a day. Ronn Holcomb albuterol (PROVENTIL) 2.5 mg /3 mL (0.083 %) nebulizer solut ion 2017-06-11 16:46:47 Yes 2.5mg Q6H Take 2.5 m g by nebulization every 6 (six) hours as needed for wheezing. Ronn Holcomb lactulose 10 gram/15 mL (15 mL) solution 2017-06-11 16:46:47 Yes Q.[id number] Take by mouth 3 (three) times a day. Ronn Holcomb Albuterol Sulfate 2.5 Mg/3 Ml Vial.neb Albuterol Sulfate 2.5 Mg/ 3 Ml Vial.neb Yes 2.5 As Needed [facility] Furosemide (Lasix) 40 Mg Tablet Furosemide (Lasix) 40 Mg Tablet Yes 40 Twice A Day [facility] Lactulose 10 Gm/15 Ml Solution Lactulose 10 Gm/15 Ml Solution Yes 60 Every Other Day [facility] Levothyroxine Sodium 50 Mcg Tablet Levothyroxine Sodium 50 Mcg Tablet Yes 50 Daily [facility] Omeprazole 20 Mg Tablet. Omeprazole 20 Mg Tablet. Yes 20 Twice A Day [facility] Oxycodone Hcl 5 Mg Tablet Oxycodone Hcl 5 Mg Tablet Yes 5 Every 4HRS Prn [facility] Prednisone 10 Mg Tab Prednisone 10 Mg Tab Yes 10 Daily [facility] Rifaximin (Xifaxan) 550 Mg Tablet Rifaximin (Xifaxan) 550 Mg Tablet Yes 550 Daily [facility] Ropinirole Hcl 0.5 Mg Tablet Ropinirole Hcl 0.5 Mg Tablet Y es .5 Bedtime [facility] Spironolactone 100 Mg Tablet Spironolactone 100 Mg Tablet Y es 100 Three Times A Day [facility] Cefdinir (Omnicef) 300 Mg Capsule, 300 Mg Oral Cefdini r (Omnicef) 300 Mg Capsule, 300 Mg Oral 2014-10-30 00:00:00 No 300 Twi ce A Day [facility] Levofloxacin (Levaquin) 500 Mg Tablet, 500 Mg Oral Lev ofloxacin (Levaquin) 500 Mg Tablet, 500 Mg Oral 2014-10-30 00:00:00 No 500 D aily [facility] Levothyroxine Sodium 50 Mcg Tablet, 50 Mcg Oral Levoth yroxine Sodium 50 Mcg Tablet, 50 Mcg Oral 2014-10-30 00:00:00 No 50 Ar y [facility] Vital Signs Vital Name Observation Time Observation Value Comments Source Systolic blood pressure 2019-10-06 12:00:00 116 mm[Hg] [facility] Diastolic blood pressure 2019-10-06 12:00:00 62 mm[Hg] [facility] Heart rate 2019-10-06 12:00:00 71 /min [facility] Body temperature 2019-10-06 12:00:00 36.72 [place] [facility] Respiratory rate 2019-10-06 12:00:00 19 /min [facility] Body height 2019-10-06 12:00:00 172.7 cm [facility] Body weight Measured 2019-10-06 12:00:00 98.431 kg [facility] BMI 2019-10-06 12:00:00 32.99 kg/m2 [facility] Oxygen saturation in Arterial blood by Pulse oximetry 10-05 12:00:00 100 /min [facility] r Procedures Procedure Date / Time Performed Performing Clinician [facility] e Computed tomography of chest with contrast 2019-06-20 00:00:00 BAKARI BRYANT [facility] Plan of Care Planned Activity Planned Date Details Comments Source Future Scheduled Test 2018-05-11 00:00:00 MEDICARE ANNUAL WE LLNESS (YEAR 2 or FIRST YEAR if no IPPE) [code = MEDICARE ANNUAL WELLNESS (YEAR 2 or FIRST YEAR if no IPPE)] [facility] Encounters Start Date/Time End Date/Time Encounter Type Admission Type Attendi [facility] Care Department Encounter ID Source 2019-06-20 14:17:00 2019-06-21 16:45:00 Discharged Inpatient (obs) 1 DAVID FUNES [facility] [id number] [facility] 2018-11-02 14:55:00 2018-11-02 14:55:00 Registered Emergency Room 1 DONG CUMMINS [facility] [id number] [facility] 2018-02-01 14:56:00 2018-02-01 15:50:00 Departed Emergency Room [facility] [id number] [facility] Results Test Description Test Time Test Comments Results Result Comments Source Blood Culture 2019-06-21 13:49:00 Test Item Blood Culture (test code = 03584347) NO GROWTH AFTER 24 HOURS [facility]2019-06-21 08:31:00 [place] [address] Patient Name: SAMY NEIL MR #: [id number] : 1945 Age/Sex: 73/M Req #: [id number] Adm Physician: DAVID FUNES MD Ordered by: BAKARI GAMEZ [employer] Report #: [id number] Location: [facility] Room/Bed: [facility] Procedure: 04 DX/CHEST SINGLE (PORTABLE) Exam Date: 06/21/19 Ex am Time: 0605 REPORT STATUS: Signed Exam: Chest one view Comparison: June 20, 2019 Clinical histor y: Shortness of breath Findings: There is interval improvement in the right upper lobe pulmonary opacities which may represent resolving pneumonitis. How ever, repeat chest radiograph after treatment is recommended to ensure complet e resolution and rule out underlying pathology. There is persistent cardi omegaly. There is no evidence of pleural effusion or pneumothorax. The regiona l osseous structures are unremarkable. Signed by: Dr. Richardson Graves MD on 04/2020 8:32 AM Dictated By: FRITZ GRAVES MD 1 Transcribed By: BINA on 06/21/19831 COPY TO: BAKARI GAMEZ NP Troponin [id number] 08:23:00* Test Item Value Reference Range Interpretation Comments Troponin I (test code = XWZ4515) 0.045 0-0.300 [facility] Mvprz9546-24-50 08:06:00* Test Item Value Reference Range Interpretation Comments Magnesium Level (test code = 35703-3) 1.5 1.3-2.1 [facility] Xasyr3664-73-07 07:46:00* Test Item Value Reference Range Interpretation Comments Sodium Level (test code = 2951-2) 131 136-145 L [facility] Ijyye2450-95-07 07:46:00* Test Item Value Reference Range Interpretation Comments Potassium Level (test code = 2823-3) 4.5 3.5-5.1 [facility] HospitalChloride [id number] 07:46:00* Test Item Value Reference Range Interpretation Comments Chloride Level (test code = 2075-0) 103 98-107 [facility]Carbon Dioxide Yfmsq7757-26-50 07:46:00* Test Item Value Reference Range Interpretation Comments Carbon Dioxide Level (test code = 2028-9) 18 22-29 L [facility] HospitalAnion [id number] 07:46:00* Test Item Value Reference Range Interpretation Comments Anion Gap (test code = 08573-8) 14.5 8-16 [facility]Blood Urea Vacftclj0057-72-04 07:46:00* Test Item Value Reference Range Interpretation Comments Blood Urea Nitrogen (test code = 3094-0) 13 7-26 [facility] HospitalCreatinine2020-02-12 07:46:00* Test Item Value Reference Range Interpretation Comments Creatinine (test code = 2160-0) 0.96 0.72-1.25 [facility] HospitalBUN/Creatinine Mgure9195-57-75 07:46:00* Test Item Value Reference Range Interpretation Comments BUN/Creatinine Ratio (test code = 3097-3) 14 6-25 [facility] HospitalEstimat Glomerular Filtration Rate 2019-06-21 07:46:00* Test Item Value Reference Range Interpretation Comments Estimat Glomerular Filtration Rate (test code = 598360027) > 60 >60 Ranges were taken from the National Kidney Disease Education Program and the [facility] Kidney Foundation literature.Reference ranges:60 or greater: Wonlyf59-71 ( for 3 consecutive months): Chronic kidney disease 15 or less: Kidney failureMethodist HospitalGlucose Wrydw9862-00-85 07:46:00* Test Item Value Reference Range Interpretation Comments Glucose Level (test code = JCT6164) 178 74-118 H [facility] HospitalCalcium Bqrvb9321-38-74 07:46:00* Test Item Value Reference Range Interpretation Comments Calcium Level (test code = 64209-3) 8.0 8.4-10.2 L [facility] HospitalTotal Sucjfidmg2955-09-54 07:46:00* Test Item Value Reference Range Interpretation Comments Total Bilirubin (test code = 1975-2) 1.4 0.2-1.2 H [facility] HospitalAspartate Amino Transf (AST/SGOT) 2019-06-21 07:46:00* Test Item Value Reference Range Interpretation Comments Aspartate Amino Transf (AST/SGOT) (test code = Aspartate Amino Transf (AST/SGOT)) 29 5-34 [facility] HospitalAlanine Aminotransferase (ALT/SGPT) 2019-06-21 07:46:00* Test Item Value Reference Range Interpretation Comments Alanine Aminotransferase (ALT/SGPT) (test code = 1742-6) 28 0-55 [facility] HospitalTotal Laucmnd1603-43-95 07:46:00* Test Item Value Reference Range Interpretation Comments Total Protein (test code = 2885-2) 6.9 6.5-8.1 [facility] HospitalAlbumin2020-02-12 07:46:00* Test Item Value Reference Range Interpretation Comments Albumin (test code = 1751-7) 2.7 3.5-5.0 L [facility] HospitalGlobulin2020-02-12 07:46:00* Test Item Value Reference Range Interpretation Comments Globulin (test code = 75911-3) 4.2 2.3-3.5 H [facility] HospitalAlbumin/Globulin Zjptv1739-13-14 07:46:00 * Test Item Value Reference Range Interpretation Comments Albumin/Globulin Ratio (test code = 1759-0) 0.6 0.8-2.0 L [facility] HospitalAlkaline Dqovvlzpafp4678-94-85 07:46:00* Test Item Value Reference Range Interpretation Comments Alkaline Phosphatase (test code = 6768-6) 120 40-150 [facility] HospitalWhite Blood Hzkwu2147-54-62 07:42:00* Test Item Value Reference Range Interpretation Comments White Blood Count (test code = 6690-2) 7.89 4.8-10.8 [facility] HospitalRed Blood Ohhoz5917-14-37 07:42:00* Test Item Value Reference Range Interpretation Comments Red Blood Count (test code = 789-8) 3.75 4.3-5.7 L [facility] HospitalHemoglobin2020-02-12 07:42:00* Test Item Value Reference Range Interpretation Comments Hemoglobin (test code = 13521-6) 13.7 14.0-18.0 L [facility] HospitalHematocrit2020-02-12 07:42:00* Test Item Value Reference Range Interpretation Comments Hematocrit (test code = 4544-3) 38.9 38.2-49.6 [facility] HospitalMean Corpuscular Wlutrm9926-10-99 07:42:00* Test Item Value Reference Range Interpretation Comments Mean Corpuscular Volume (test code = 787-2) 103.7 81-99 H [facility] HospitalMean Corpuscular Lmgjhqxcie1150-44-89 07:42:00* Test Item Value Reference Range Interpretation Comments Mean Corpuscular Hemoglobin (test code = 785-6) 36.5 28-32 H [facility] HospitalMean Corpuscular Hemoglobin Concent 2019-06-21 07:42:00* Test Item Value Reference Range Interpretation Comments Mean Corpuscular Hemoglobin Concent (test code = 786-4) 35.2 31-35 H [facility] HospitalRed Cell Distribution Nhkbq8089-67-51 07:42:00* Test Item Value Reference Range Interpretation Comments Red Cell Distribution Width (test code = 67215-4) 14.2 11.7 -14.4 [facility] HospitalPlatelet Vbwud9660-58-68 07:42:00* Test Item Value Reference Range Interpretation Comments Platelet Count (test code = 777-3) 92 140-360 L [facility] HospitalNeutrophils (%) (Auto)2019-06-21 07:42:00 * Test Item Value Reference Range Interpretation Comments Neutrophils (%) (Auto) (test code = 56695-5) 73.6 38.7-80.0 [facility] HospitalLymphocytes (%) (Auto)2019-06-21 07:42:00 * Test Item Value Reference Range Interpretation Comments Lymphocytes (%) (Auto) (test code = 736-9) 20.0 18.0-39.1 [facility] HospitalMonocytes (%) (Auto)2019-06-21 07:42:00* Test Item Value Reference Range Interpretation Comments Monocytes (%) (Auto) (test code = 5905-5) 4.7 4.4-11.3 [facility] HospitalEosinophils (%) (Auto)2019-06-21 07:42:00 * Test Item Value Reference Range Interpretation Comments Eosinophils (%) (Auto) (test code = 713-8) 1.6 0.0-6.0 [facility] HospitalBasophils (%) (Auto)2019-06-21 07:42:00* Test Item Value Reference Range Interpretation Comments Basophils (%) (Auto) (test code = 706-2) 0.0 0.0-1.0 [facility] HospitalIM GRANULOCYTES %2019-06-21 07:42:00* Test Item Value Reference Range Interpretation Comments IM GRANULOCYTES % (test code = IM GRANULOCYTES %) 0.1 0.0- 1.0 [facility] HospitalNeutrophils # (Auto)2019-06-21 07:42:00* Test Item Value Reference Range Interpretation Comments Neutrophils # (Auto) (test code = 751-8) 5.8 2.1-6.9 [facility] HospitalLymphocytes # (Auto)2019-06-21 07:42:00* Test Item Value Reference Range Interpretation Comments Lymphocytes # (Auto) (test code = 12988-3) 1.6 1.0-3.2 [facility] HospitalMonocytes # (Auto)2019-06-21 07:42:00* Test Item Value Reference Range Interpretation Comments Monocytes # (Auto) (test code = 742-7) 0.4 0.2-0.8 [facility] HospitalEosinophils # (Auto)2019-06-21 07:42:00* Test Item Value Reference Range Interpretation Comments Eosinophils # (Auto) (test code = 711-2) 0.1 0.0-0.4 [facility] HospitalBasophils # (Auto)2019-06-21 07:42:00* Test Item Value Reference Range Interpretation Comments Basophils # (Auto) (test code = 704-7) 0.0 0.0-0.1 [facility] HospitalAbsolute Immature Granulocyte (auto 2019-06-21 07:42:00* Test Item Value Reference Range Interpretation Comments Absolute Immature Granulocyte (auto (jair t code = Absolute Immature Granulocyte (auto) 0.01 0-0.1 [facility] HospitalDifferential Total Cells Counted 2019-06-20 20:24:00* Test Item Value Reference Range Interpretation Comments Differential Total Cells Counted (test code = Differen tial Total Cells Counted) 100 [facility] HospitalNeutrophils % (Manual)2019-06-20 20:24:00 * Test Item Value Reference Range Interpretation Comments Neutrophils % (Manual) (test code = 41340-5) 33 40-74 L [facility] HospitalLymphocytes % (Manual)2019-06-20 20:24:00 * Test Item Value Reference Range Interpretation Comments Lymphocytes % (Manual) (test code = 737-7) 49 19-48 H [facility] HospitalMonocytes % (Manual)2019-06-20 20:24:00* Test Item Value Reference Range Interpretation Comments Monocytes % (Manual) (test code = 744-3) 7 3.4-9.0 [facility] HospitalReactive Yuhscgtpmku6478-08-84 20:24:00* Test Item Value Reference Range Interpretation Comments Reactive Lymphocytes (test code = 15922-0) 11 [facility] HospitalPlatelet Mbjxmytx1557-33-72 20:24:00* Test Item Value Reference Range Interpretation Comments Platelet Estimate (test code = 39190-3) SLIGHTLY DECREASED [facility] HospitalPlatelet Morphology Nprysrw9090-04-78 20:24:00* Test Item Value Reference Range Interpretation Comments Platelet Morphology Comment (test code = 49209-6) NORMAL [facility] HospitalRed Cell Morphology Cikkazl5056-73-87 20:24:00* Test Item Value Reference Range Interpretation Comments Red Cell Morphology Comment (test code = 6742-1) NORMAL [facility] HospitalCT CHEST [id number] 15:27:00 [facility] [address] [place] [address] Patient Name: SAMY NEIL MR #: [id number] : 1945 Age/Sex: 73/M Req #: [id number] Adm Physician: DAVID FUNES MD Ordered by: BAKARI GAMEZ NP Report #: [id number] Location: [facility] Room/Bed: [place] [address] Procedure: 0211-[address]/CT CHEST W Exam Date: 06/20/19 Exam Time: 1500 REPORT STATUS: Signed CT of the chest, with contrast History: Possible mass. Comparison: Chest radiog raph dated today. Technique: Multidetector CT scanning of the chest was per formed from the level of the thoracic inlet to the upper abdomen with IV contr ast. Dose reduction: The examination was performed according to department al dose-optimization program which includes automated exposure control, adjust ment of the mA and/or kV according to patient size and/or use of iterative r econstruction technique. Findings: The visual ized thyroid gland is unremarkable. There is no axillary, mediastinal, or h ilar lymphadenopathy. The heart is within normal limits of size. There is n o pericardial effusion. The thoracic aorta is of normal course and caliber. The main pulmonary artery is enlarged measuring 4.1 cm in diameter. The trachea and central airways are clear. The lungs demonstrate multifocal pat evens and groundglass opacities which are most pronounced in the right upper lob e and account for the findings on recent chest radiograph. Opacities are also seen in the left upper lobe and right lower lobe. Findings are most likely se condary to multifocal pneumonia. There is no pleural effusion or pneumothor ax. Limited evaluation of the upper abdomen demonstrates a TIPS stent in pl michelle. The liver has a cirrhotic morphology. Calcified gallstones are present wi thout evidence of acute cholecystitis. Cysts are identified in the upper pole of the left kidney. No acute osseous abnormalities are identified. I MPRESSION: 1. Multifocal patchy and groundglass opacities in the right uppe r, right lower, and left upper lobes concerning for multifocal pneumonia. Omi mmend follow-up chest radiographs in 6-8 weeks after course of treatment to do cument resolution. 2. Enlarged pulmonary artery. Correlate with underlying p ulmonary arterial hypertension. 3. Cirrhosis. TIPS is in place. 4. Cholel ithiasis without evidence of acute cholecystitis. Signed by: Gumaro herrmann MD on 06/20/2019 3:36 PM Dictated By: GUMARO Dumonta lly Signed By: GUMARO ZHANG MD on 06/20/19 1536 Transcribed By: BINA on 06/20/19 1536 COPY TO: FRANCOBAKARI [employer] Urine [id number] 14:38:00* Test Item Value Reference Range Interpretation Comments Urine WBC (test code = 5821-4) 6-10 0-5 H [facility] HospitalU[facility] [id number] 14:38:00* Test Item Value Reference Range Interpretation Comments Urine RBC (test code = 96631-6) NONE 0-5 [facility] HospitalUrine Oqektfub8015-87-67 14:38:00* Test Item Value Reference Range Interpretation Comments Urine Bacteria (test code = 47990-4) MODERATE NONE H [facility] HospitalUrine Epithelial Hpaqi2941-84-15 14:38:00 * Test Item Value Reference Range Interpretation Comments Urine Epithelial Cells (test code = 90040-0) FEW NONE [facility] HospitalUrine Lptee1730-26-49 14:27:00* Test Item Value Reference Range Interpretation Comments Urine Color (test code = 5778-6) YELLOW YELLOW [facility] HospitalUrine [id number] 14:27:00* Test Item Value Reference Range Interpretation Comments Urine Clarity (test code = 19217-0) CLEAR CLEAR [facility] HospitalUrine Specific [id number] 14:27:00 * Test Item Value Reference Range Interpretation Comments Urine Specific [place] (test code = 5811-5) 1.025 1.010-1.02 5 [facility] [id number] 14:27:00* Test Item Value Reference Range Interpretation Comments Urine pH (test code = 31445-3) 7 5-7 [facility] Leukocyte [id number] 14:27:00* Test Item Value Reference Range Interpretation Comments Urine Leukocyte Esterase (test code = 5799-2) NEGATIVE NEGATIVE [facility] [id number] 14:27:00* Test Item Value Reference Range Interpretation Comments Urine Nitrite (test code = 58885-3) NEGATIVE NEGATIVE [facility] [id number] 14:27:00* Test Item Value Reference Range Interpretation Comments Urine Protein (test code = 5804-0) NEGATIVE NEGATIVE [facility] Glucose (UA)2019-06-20 14:27:00* Test Item Value Reference Range Interpretation Comments Urine Glucose (UA) (test code = 2349-9) NEGATIVE NEGATIVE [facility] [id number] 14:27:00* Test Item Value Reference Range Interpretation Comments Urine Ketones (test code = 70328-1) NEGATIVE NEGATIVE [facility] Qjlhhfgkzvdc6714-12-63 14:27:00* Test Item Value Reference Range Interpretation Comments Urine Urobilinogen (test code = 76208-3) 0.2 0.2-1 [facility] [id number] 14:27:00* Test Item Value Reference Range Interpretation Comments Urine Bilirubin (test code = 1978-6) NEGATIVE NEGATIVE [facility] [id number] 14:27:00* Test Item Value Reference Range Interpretation Comments Urine Blood (test code = 33381-8) NEGATIVE NEGATIVE [facility]th[facility] [id number] 14:13:00* Test Item Value Reference Range Interpretation Comments Prothrombin Time (test code = 5902-2) 16.9 11.9-14.5 H [facility]Prothromb [facility] International Ratio 2019-06-20 14:13:00* Test Item Value Reference Range Interpretation Comments Prothromb Time International Ratio (test code = 6301-6) 1.29 Oral Anticoagulant Therapy INR Values:1. Low Intensity Therapy 1.5 - 2.02 . Moderate Intensity Therapy 2.0 - 3.03. High Intensity Therapy(1) 2.5 - 3. 54. High Intensity Therapy(2) 3.0 - 4.05. Panic Value INR > 5.0 [facility] Partial Thromboplast Time 2019-06-20 14:13:00* Test Item Value Reference Range Interpretation Comments Activated Partial Thromboplast Time (test code = 97193-9) 38.8 23.8-35.5 H [facility] Natriuretic [id number] 14:11:00* Test Item Value Reference Range Interpretation Comments B-Type Natriuretic Peptide (test code = 76364-4) 93.3 0-100 [facility] HospitalCreatine Kinase [id number] 14:11:00* Test Item Value Reference Range Interpretation Comments Creatine Kinase MB (test code = 73944-2) 8.20 0-5.0 H [facility]Creat[facility] Bksexo1033-16-18 13:56:00* Test Item Value Reference Range Interpretation Comments Creatine Kinase (test code = 2157-6) 71 30-200 [facility] HospitalInfluenza Virus Types A,B Antigen 2019-06-20 13:49:00* Test Item Value Reference Range Interpretation Comments Influenza Virus Types A,B Antigen (test code = 06088-0) NEGATIVE NEGATIVE [facility] HospitalGroup A Streptococcus Icibya3070-29-11 13:47:00* Test Item Value Reference Range Interpretation Comments Group A Streptococcus Screen (test code = 50818-2) NEGATIVE NEG ATIVE [facility] HospitalCHEST SINGLE (PORTABLE)2019-06-20 13:41:00 [facility] [address] [place] [address] Patient Name: SAMY NEIL MR #: [id number] : 1945 Age/Sex: 73/M Req #: [id number] Adm Physician: Ordered by: CORINE ANDUJAR MD Report #: [id number] Location: Room/Bed: Procedure: [id number] DX/CHEST SINGLE (PORTABLE) Exam Date: 06/20/19 Exam Time: 1300 REPORT STATUS: Signed Chest, portable AP view History: Cough, shortness of breath Compariso n: No comparisons available for review IMPRESSION: There is a 4.7 cm d iameter opacity in the right upper lobe is concerning for a mass lesion. Furth er evaluation with chest CT is recommended. The heart is within normal limits of size. Prominence of the right hilum may be secondary to adenopathy or a pro minent pulmonary artery. No sizable pleural effusion or pneumothorax. Sig annie by: Gumaro Zhang MD on 06/20/2019 1:44 PM Dictated By: GUMARO ZHANG MD 1344 Trans cribed By: BINA on 06/20/19 1344 COPY TO: CORINE ANDUJAR MD Lactic Acid [id number] 20:45:00* Test Item Value Reference Range Interpretation Comments Lactic Acid Level (test code = Lactic Acid Level) 21.0 4.5- 19.8 Results repeated and called to JONATHAN DUNN at 2044 on 11/02/18 by VIKAS HERRMANN. 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 Comparison: None. Findings: No acute, displaced fracture or dis location. Partially visualized knee and ankle joint spaces are well-maintained . Probable bandage material overlies the anterior surface of the lower leg at the level of the midshaft of the tibia. No radiopaque foreign body or subcutan eous gas. Impression: No acute osseous abnormality. No radiopaque foreign body or subcutaneous gas per clinical query. Signed by: Dr. Tyron Yepez M.D. on 11/02/2018 4:18 PM Dictated By: ADDISON YEPEZ MD Elec tronically Signed By: ADDISON YEPEZ MD on 11/02/181617 Transcribed By: BNIA on 11/02/181617 COPY TO: OCHOA MORE [employer]KER TISSUE EXAM 2018-07-26 09:47:00Surgical Pathology Report Case: [id number] Authorizing Provider: Janeth Skaggs MD Collected: 07/20/2018 1658 Ordering Location: [address] Received: 07/20/2018 7474 Cardiovascular Pathologist: Wilbur Najera MD Specimen: Lung, Right Upper Lobe A. LUNG, RIGHT UPPER LOBE, CT GUIDED NEEDLE CORE BIOPSY: - ACUTE BRONCHOPNEUMONIA AND ABSCESS FORMATION (SEE COMMENT) - SUSPICIOUS FOR FUNGAL INFECTION - NEGATIVE FOR MALIGNANCY Signing Pathologist Direct Phone Line: [phone] signed by Wilbur Najera MD on 07/26/2018 [...] micro-organisms. Correlation with cultures and serology is recommended.[id number] given Right upper lobe lung biopsy The [...] stains. Immunohistochemistry technical testing was performed at [facility], Pathology Laboratory where it was developed [...] qualified to perform high complexity clinical laboratory testing.RAD, CHEST, 2 [id number] 13:21:00Reason for exam:->SOB FINAL REPORT INDICATION: SOB COMPARISON: July 22, 2018 T ECHNIQUE: Frontal and lateral views of the chest. IMPRESSION:Lungs and pleura: D ecreasing conspicuity of patchy airspace disease bilaterally. No effusion.Heart and mediastinum: Normal heart size. Unremarkable mediastinal contours.Osseous st ructures: No acute abnormality.Additional findings: Stable TIPS. Unchanged right PICC. Signed: JR King Robert MDReport Verified Date/Time: 07/23/2018 13:21:07 Reading Location: [address] Neuro Reading Room Electronically si gned by: MANUEL KING on 07/23/2018 01:21 PM RAD, CHEST, 1 VIEW, NON [id number] 23:28:00Reason for exam:->pneumothoraxShould this be performed at the bedside?->YesFINAL REPORT Portable chest. HISTORY: Pneumothorax. COMPARISON STUDY: [...] CHF or pneumonia. No pneumothorax seen. Signed: Joyce Hall MDRfatmata Verified Date/Time: 07/22/2018 23:28:09 Reading Location: [facility] C013W Consult Reading Room , BRAIN, WITHOUT [id number] 20:46:00FINAL REPORT CT, BRAIN, WITHOUT CONTRAST CLINICAL INDICATION: [...] examination is recommended for further characterization. Signed: Anita Baxter Verified Date/Time: 07/22/2018 20:46:26 Reading Location: [facility] Radiology Reading Room -GLUCOSE [id number] 13:02:00* Test Item Value Reference Range Interpretation Comments POC-GLUCOSE METER (BEAKER) (test code = 1538) 106 mg/dL 70-110 TESTED AT [facility] [address] [facility] [address] RAD, CHEST, 1 VIEW, NON [id number] 11:37:00Reason for exam:->pneumothorax FINAL REPORT CLINICAL HISTORY: [...] Date/Time: 07/22/2018 11:37:56 Reading Location: [facility] iology Reading Room Electronically signed by: MAURICE SAM M.D. on 07/22 11:37 AM POCT-GLUCOSE [id number] 08:36:00* Test Item Value Reference Range Interpretation Comments POC-GLUCOSE METER (BEAKER) (test code = 1538) 92 mg/dL 70-110 TESTED AT [facility] [address] [facility] [address] BASIC METABOLIC [id number] 04:59:00* Test Item Value Reference Range Interpretation Comments SODIUM (BEAKER) (test code = 381) 132 meq/L 136-145 L POTASSIUM (BEAKER) (test code = 379) 4.1 meq/L 3.5-5.1 CHLORIDE (BEAKER) (test code = 382) 102 meq/L 98-107 CO2 (BEAKER) (test code = 355) 22 meq/L 22-29 BLOOD UREA NITROGEN (BEAKER) (test code = 354) 17 mg/dL 7-21 CREATININE (BEAKER) (test code = 358) 0.84 mg/dL 0.57-1.25 GLUCOSE RANDOM (BEAKER) (test code = 652) 144 mg/dL 70-105 H CALCIUM (BEAKER) (test code = 697) 7.9 mg/dL 8.4-10.2 L EGFR (BEAKER) (test code = 1092) 89 mL/min/1.73 sq m ESTIMATED GFR IS NOT ACCURATE CREATININE CLEARANCE IN PREDICTING GLOMERULAR FILTRATION RATE. ESTIMATED GFR IS NOT APPLICABLE FOR DIALYSIS PATIENTS. Specimen slightly ictericCBC W/PLT COUNT & AUTO [id number] 04:34:00 * Test Item Value Reference Range Interpretation Comments WHITE BLOOD CELL COUNT (BEAKER) (test code = 775) 16.3 K/ L 3.5- 10.5 H RED BLOOD CELL COUNT (BEAKER) (test code = 761) 4.06 M/ L 4.63-6 .08 L HEMOGLOBIN (BEAKER) (test code = 410) 14.5 GM/DL 13.7-17.5 HEMATOCRIT (BEAKER) (test code = 411) 43.1 % 40.1-51.0 MEAN CORPUSCULAR VOLUME (BEAKER) (test code = 753) 106.2 fL 79. 0-92.2 H MEAN CORPUSCULAR HEMOGLOBIN (BEAKER) (test code = 751) 35.7 pg 25.7-32.2 H MEAN CORPUSCULAR HEMOGLOBIN CONC (BEAKER) (test code = 752) 33.6 GM/DL 32.3-36.5 RED CELL DISTRIBUTION WIDTH (BEAKER) (test code = 412) 13.7 % 11.6-14.4 PLATELET COUNT (BEAKER) (test code = 756) 127 K/CU MM 150-450 L MEAN PLATELET VOLUME (BEAKER) (test code = 754) 11.3 fL 9.4-12 .4 NUCLEATED RED BLOOD CELLS (BEAKER) (test code = 413) 0 /100 WBC 0 -0 NEUTROPHILS RELATIVE PERCENT (BEAKER) (test code = 429) 73 % LYMPHOCYTES RELATIVE PERCENT (BEAKER) (test code = 430) 14 % MONOCYTES RELATIVE PERCENT (BEAKER) (test code = 431) 11 % EOSINOPHILS RELATIVE PERCENT (BEAKER) (test code = 432) 0 % BASOPHILS RELATIVE PERCENT (BEAKER) (test code = 437) 0 % NEUTROPHILS ABSOLUTE COUNT (BEAKER) (test code = 670) 11.85 K/ L 1.78-5.38 H LYMPHOCYTES ABSOLUTE COUNT (BEAKER) (test code = 414) 2.24 K/ L 1.32-3.57 MONOCYTES ABSOLUTE COUNT (BEAKER) (test code = 415) 1.85 K/ L 0. 30-0.82 H EOSINOPHILS ABSOLUTE COUNT (BEAKER) (test code = 416) 0.03 K/ L 0.04-0.54 L BASOPHILS ABSOLUTE COUNT (BEAKER) (test code = 417) 0.06 K/ L 0. 01-0.08 IMMATURE GRANULOCYTES-RELATIVE PERCENT (BEAKER) (test code = 2801) 1 % 0-1 RAD, CHEST, 1 VIEW, NON [id number] 22:06:00Reason for exam:->pneumothorax FINAL REPORT Portable chest. [...] place and continuing pulmona ry opacities. Signed: Joyce Hall MDReport Verified Date/Time: 07/21/2018 2 2:06:20 Reading Location: [facility] C013W Consult Reading Room -GLUCOSE METER 2018-07-21 17:08:00* Test Item Value Reference Range Interpretation Comments POC-GLUCOSE METER (BEAKER) (test code = 1538) 121 mg/dL 70-110 H TESTED AT [facility] [address] [facility] [address] CBC W/PLT COUNT & AUTO [id number] 15:00:00* Test Item Value Reference Range Interpretation Comments WHITE BLOOD CELL COUNT (BEAKER) (test code = 775) 19.8 K/ L 3.5- 10.5 H RED BLOOD CELL COUNT (BEAKER) (test code = 761) 4.26 M/ L 4.63-6 .08 L HEMOGLOBIN (BEAKER) (test code = 410) 15.3 GM/DL 13.7-17.5 HEMATOCRIT (BEAKER) (test code = 411) 45.4 % 40.1-51.0 MEAN CORPUSCULAR VOLUME (BEAKER) (test code = 753) 106.6 fL 79. 0-92.2 H MEAN CORPUSCULAR HEMOGLOBIN (BEAKER) (test code = 751) 35.9 pg 25.7-32.2 H MEAN CORPUSCULAR HEMOGLOBIN CONC (BEAKER) (test code = 752) 33.7 GM/DL 32.3-36.5 RED CELL DISTRIBUTION WIDTH (BEAKER) (test code = 412) 13.7 % 11.6-14.4 PLATELET COUNT (BEAKER) (test code = 756) 163 K/CU MM 150-450 MEAN PLATELET VOLUME (BEAKER) (test code = 754) 11.3 fL 9.4-12 .4 NUCLEATED RED BLOOD CELLS (BEAKER) (test code = 413) 0 /100 WBC 0 -0 (CELLAVISION MANUAL DIFF)2018-07-21 15:00:00* Test Item Value Reference Range Interpretation Comments NEUTROPHILS - REL (CELLAVISION)(BEAKER) (test code = 2816) 87 % LYMPHOCYTES - REL (CELLAVISION)(BEAKER) (test code = 2817) 5 % MONOCYTES - REL (CELLAVISION)(BEAKER) (test code = 2818) 6 % ATYPICAL LYMPHOCYTES - REL (CELLAVISION)(BEAKER) (test code = 2829) 1 % 0-0 H NEUTROPHILS - ABS (CELLAVISION)(BEAKER) (test code = 2830) 17.23 K/ul 1.78-5.38 H LYMPHOCYTES - ABS (CELLAVISION)(BEAKER) (test code = 2831) 0.99 K/ul 1.32-3.57 L MONOCYTES - ABS (CELLAVISION)(BEAKER) (test code = 2832) 1.19 K/uL 0.30-0.82 H ATYPICAL LYMPHOCYTES - ABS (CELLAVISION)(BEAKER) (test code = 2858) 0.20 K/uL 0.00-0.00 H TOTAL COUNTED (BEAKER) (test code = 1351) 100 GIANT PLATELETS (BEAKER) (test code = 313) Present HYPERSEGMENTATION (CELLAVISION)(BEAKER) (test code = 3445) Present ANISOCYTOSIS (BEAKER) (test code = 961) 3+ many MACROCYTES (BEAKER) (test code = 964) 3+ many POIKILOCYTES (BEAKER) (test code = 966) 1+ few OVALOCYTES (BEAKER) (test code = 477) 1+ few ARTIFACT (CELLAVISION)(BEAKER) (test code = 3432) Present PLATELET CONCENTRATION (CELLAVISION)(BEAKER) (test code = 3438) Jennifer quate Received comment: User comments: Slide comments: BASIC METABOLIC [id number] 14:59:00* Test Item Value Reference Range Interpretation Comments SODIUM (BEAKER) (test code = 381) 133 meq/L 136-145 L POTASSIUM (BEAKER) (test code = 379) 4.3 meq/L 3.5-5.1 Specimen slightly hemolyzed CHLORIDE (BEAKER) (test code = 382) 105 meq/L 98-107 CO2 (BEAKER) (test code = 355) 20 meq/L 22-29 L BLOOD UREA NITROGEN (BEAKER) (test code = 354) 21 mg/dL 7-21 CREATININE (BEAKER) (test code = 358) 0.82 mg/dL 0.57-1.25 Specimen slightly hemolyzed GLUCOSE RANDOM (BEAKER) (test code = 652) 129 mg/dL 70-105 H CALCIUM (BEAKER) (test code = 697) 8.3 mg/dL 8.4-10.2 L EGFR (BEAKER) (test code = 1092) 92 mL/min/1.73 sq m ESTIMATED GFR IS NOT ACCURATE CREATININE CLEARANCE IN PREDICTING GLOMERULAR FILTRATION RATE. ESTIMATED GFR IS NOT APPLICABLE FOR DIALYSIS PATIENTS. Specimen slightly ictericRAD, CHEST, 1 VIEW, NON [id number] 13:00:00Reason for exam:->PICC LINE PLACEMENTShould this be [...] MDReport Verified Date/Time: 07/21/2018 13:00:04 Reading Location: [address] Consult Reading Room -GLUCOSE [id number] 12:08:00* Test Item Value Reference Range Interpretation Comments POC-GLUCOSE METER (ROMEL) (test code = 1538) 137 mg/dL 70-110 H TESTED AT [facility] [address] [facility] [address] CT, DRAINAGE, CHEST TUBE [id number] 00:43:00Reason for exam:-> Increasing pneumothoraxFINAL REPORT PROCEDURE: [...] cavity, and after dilation with an 8 Guamanian dilator, an 8 Guamanian catheter was inserted into the pleural cavity. [...] has only minimal residual right pneumothorax. Signed: Jhonny Bee MDReport Verified Date/Time: 07/21/2018 00:43:30 Reading Location: [facility] B1 C013W Consult Reading Room , CHEST, 1 VIEW, NON [id number] 00:43:00Reason for exam:->Pain after chest tube placementShould [...] cavity, and after dilation with an 8 Guamanian dilator, an 8 Guamanian catheter was inserted into the pleural cavity. [...] has only minimal residual right pneumothorax. Signed: Jhonny Bee Verified Date/Time: 07/21/2018 00:43:30 Reading Location: [address] Consult Reading Room , CHEST, PA OR AP, 1 [id number] 19:55:00Reason for exam:->Post Lung BiopsyShould this be [...] is unchanged. No acute bony abnormality. Signed: Jhonny Bee Verified Date/Time: 07/20/2018 19:55:59 Reading Location: [facility] C013W Consult Reading Room , BIOPSY, [id number] 18:11:00Reason for exam:->RUL noduleFINAL REPORT CT-guided core biopsy dated 07/20/2018 Name of practitioner performing procedure:Nick Gonsales M.D. Names of blood and plasma laboratory assistant:None Procedure: Core biopsy of the right [...] Gonsales Verified Date/Time: 07/20/2018 18:11:12 Reading Location: [facility] C013Y CT Body Reading Room , CHEST, PA [...] Gonsales on 07/20/2018 at 5:55 PM. Signed: Jhonny Bee Verified Date/Time: 07/20/2018 18:00:14 Reading Location: [address] Consult Reading Room IC ACID, [id number] 13:49:00* Test Item Value Reference Range Interpretation Comments LACTATE BLOOD VENOUS (2) (BEAKER) (test code = 2872) 1.4 mmol/L 0 .5-2.2 Specimen slightly hemolyzed Specimen slightly [id number] 13:46:00* Test Item Value Reference Range Interpretation Comments AMMONIA (BEAKER) (test code = 348) 89 mol/L 18-72 H POCT-GLUCOSE [id number] 13:23:00* Test Item Value Reference Range Interpretation Comments POC-GLUCOSE METER (BEAKER) (test code = 1538) 94 mg/dL 70-110 TESTED AT [address] [place] [address] RAD, CHEST, 1 VIEW, NON [id number] 13:04:00Reason for exam:->shortness of breathShould this be performed at the bedside?->YesFINAL REPORT CLINICAL HISTORY: shortness of breath TECHNIQUE: 1 view of the chest. COMPARISON: 07/17/2018 IMPRESSION: The right upper lobe mass is unchanged. There are no new infiltrates or effusions. The cardiomediastinal silhouette is magnified by technique. Signed: Maurice Sam Verified Date/Time: 07/20/2018 13:04:26 Reading Location: [address] Consult Reading Room - GLUCOSE [id number] 10:33:00* Test Item Value Reference Range Interpretation Comments POC-GLUCOSE METER (BEAKER) (test code = 1538) 118 mg/dL 70-110 H TESTED AT [address] [place] [address] CBC W/PLT COUNT & AUTO [id number] 07:41:00* Test Item Value Reference Range Interpretation Comments WHITE BLOOD CELL COUNT (BEAKER) (test code = 775) 19.3 K/ L 3.5- 10.5 H RED BLOOD CELL COUNT (BEAKER) (test code = 761) 4.16 M/ L 4.63-6 .08 L HEMOGLOBIN (BEAKER) (test code = 410) 14.8 GM/DL 13.7-17.5 HEMATOCRIT (BEAKER) (test code = 411) 43.9 % 40.1-51.0 MEAN CORPUSCULAR VOLUME (BEAKER) (test code = 753) 105.5 fL 79. 0-92.2 H MEAN CORPUSCULAR HEMOGLOBIN (BEAKER) (test code = 751) 35.6 pg 25.7-32.2 H MEAN CORPUSCULAR HEMOGLOBIN CONC (BEAKER) (test code = 752) 33.7 GM/DL 32.3-36.5 RED CELL DISTRIBUTION WIDTH (BEAKER) (test code = 412) 14.2 % 11.6-14.4 PLATELET COUNT (BEAKER) (test code = 756) 161 K/CU MM 150-450 MEAN PLATELET VOLUME (BEAKER) (test code = 754) 11.5 fL 9.4-12 .4 NUCLEATED RED BLOOD CELLS (BEAKER) (test code = 413) 0 /100 WBC 0 -0 (CELLAVISION MANUAL DIFF)2018-07-20 07:41:00* Test Item Value Reference Range Interpretation Comments NEUTROPHILS - REL (CELLAVISION)(BEAKER) (test code = 2816) 75 % LYMPHOCYTES - REL (CELLAVISION)(BEAKER) (test code = 2817) 4 % MONOCYTES - REL (CELLAVISION)(BEAKER) (test code = 2818) 20 % ATYPICAL LYMPHOCYTES - REL (CELLAVISION)(BEAKER) (test code = 2829) 1 % 0-0 H NEUTROPHILS - ABS (CELLAVISION)(BEAKER) (test code = 2830) 14.48 K/ul 1.78-5.38 H LYMPHOCYTES - ABS (CELLAVISION)(BEAKER) (test code = 2831) 0.77 K/ul 1.32-3.57 L MONOCYTES - ABS (CELLAVISION)(BEAKER) (test code = 2832) 3.86 K/uL 0.30-0.82 H ATYPICAL LYMPHOCYTES - ABS (CELLAVISION)(BEAKER) (test code = 2858) 0.19 K/uL 0.00-0.00 H TOTAL COUNTED (BEAKER) (test code = 1351) 100 MANUAL NRBC PER 100 CELLS (BEAKER) (test code = 1353) 1 /100 WBC 0-0 H RBC MORPHOLOGY (BEAKER) (test code = 762) Normal WBC MORPHOLOGY (BEAKER) (test code = 487) Normal PLT MORPHOLOGY (BEAKER) (test code = 486) Normal GIANT PLATELETS (BEAKER) (test code = 313) Present ANISOCYTOSIS (BEAKER) (test code = 961) 1+ few MACROCYTES (BEAKER) (test code = 964) 1+ few ARTIFACT (CELLAVISION)(BEAKER) (test code = 3432) Present PLATELET CONCENTRATION (CELLAVISION)(BEAKER) (test code = 3438) Jennifer quate Received comment: User comments: Slide comments: BASIC METABOLIC [id number] 05:07:00* Test Item Value Reference Range Interpretation Comments SODIUM (BEAKER) (test code = 381) 135 meq/L 136-145 L POTASSIUM (BEAKER) (test code = 379) 4.3 meq/L 3.5-5.1 Specimen slightly hemolyzed CHLORIDE (BEAKER) (test code = 382) 106 meq/L 98-107 CO2 (BEAKER) (test code = 355) 22 meq/L 22-29 BLOOD UREA NITROGEN (BEAKER) (test code = 354) 18 mg/dL 7-21 CREATININE (BEAKER) (test code = 358) 0.77 mg/dL 0.57-1.25 Specimen slightly hemolyzed GLUCOSE RANDOM (BEAKER) (test code = 652) 133 mg/dL 70-105 H CALCIUM (BEAKER) (test code = 697) 8.5 mg/dL 8.4-10.2 EGFR (BEAKER) (test code = 1092) 99 mL/min/1.73 sq m ESTIMATED GFR IS NOT ACCURATE CREATININE CLEARANCE IN PREDICTING GLOMERULAR FILTRATION RATE. ESTIMATED GFR IS NOT APPLICABLE FOR DIALYSIS PATIENTS. Specimen slightly ictericHEMOGLOBIN [id number] 13:26:00* Test Item Value Reference Range Interpretation Comments HEMOGLOBIN A1C (BEAKER) (test code = 368) 5.0 % 4.3-6.1 CBC W/PLT COUNT & AUTO [id number] 09:32:00* Test Item Value Reference Range Interpretation Comments WHITE BLOOD CELL COUNT (BEAKER) (test code = 775) 17.0 K/ L 3.5- 10.5 H RED BLOOD CELL COUNT (BEAKER) (test code = 761) 3.80 M/ L 4.63-6 .08 L HEMOGLOBIN (BEAKER) (test code = 410) 13.8 GM/DL 13.7-17.5 HEMATOCRIT (BEAKER) (test code = 411) 41.0 % 40.1-51.0 MEAN CORPUSCULAR VOLUME (BEAKER) (test code = 753) 107.9 fL 79. 0-92.2 H MEAN CORPUSCULAR HEMOGLOBIN (BEAKER) (test code = 751) 36.3 pg 25.7-32.2 H MEAN CORPUSCULAR HEMOGLOBIN CONC (BEAKER) (test code = 752) 33.7 GM/DL 32.3-36.5 RED CELL DISTRIBUTION WIDTH (BEAKER) (test code = 412) 14.1 % 11.6-14.4 PLATELET COUNT (BEAKER) (test code = 756) 139 K/CU MM 150-450 L MEAN PLATELET VOLUME (BEAKER) (test code = 754) 12.3 fL 9.4-12 .4 NUCLEATED RED BLOOD CELLS (BEAKER) (test code = 413) 0 /100 WBC 0 -0 (CELLAVISION MANUAL DIFF)2018-07-18 09:32:00* Test Item Value Reference Range Interpretation Comments NEUTROPHILS - REL (CELLAVISION)(BEAKER) (test code = 2816) 82 % LYMPHOCYTES - REL (CELLAVISION)(BEAKER) (test code = 2817) 9 % MONOCYTES - REL (CELLAVISION)(BEAKER) (test code = 2818) 6 % BASOPHILS - REL (CELLAVISION)(BEAKER) (test code = 2820) 1 % ATYPICAL LYMPHOCYTES - REL (CELLAVISION)(BEAKER) (test code = 2829) 2 % 0-0 H NEUTROPHILS - ABS (CELLAVISION)(BEAKER) (test code = 2830) 13.94 K/ul 1.78-5.38 H LYMPHOCYTES - ABS (CELLAVISION)(BEAKER) (test code = 2831) 1.53 K/ul 1.32-3.57 MONOCYTES - ABS (CELLAVISION)(BEAKER) (test code = 2832) 1.02 K/uL 0.30-0.82 H BASOPHILS - ABS (CELLAVISION)(BEAKER) (test code = 2835) 0.17 K/uL 0.01-0.08 H ATYPICAL LYMPHOCYTES - ABS (CELLAVISION)(BEAKER) (test code = 2858) 0.34 K/uL 0.00-0.00 H TOTAL COUNTED (BEAKER) (test code = 1351) 100 PLT MORPHOLOGY (BEAKER) (test code = 486) Normal SMUDGE CELLS (BEAKER) (test code = 1371) Present POLYCHROMATOPHILLIC RBCS(BEAKER) (test code = 478) 2+ moderate ANISOCYTOSIS (BEAKER) (test code = 961) 2+ moderate MACROCYTES (BEAKER) (test code = 964) 2+ moderate PLATELET CONCENTRATION (CELLAVISION)(BEAKER) (test code = 3438) Dec reased Received comment: User comments: Slide comments: TSH/FREE T4 IF INDICATED 2018-07-18 05:08:00* Test Item Value Reference Range Interpretation Comments THYROID STIMULATING HORMONE (BEAKER) (test code = 772) 0.49 uIU/mL 0.35-4.94 [id number] 05:00:00* Test Item Value Reference Range Interpretation Comments MAGNESIUM (BEAKER) (test code = 627) 2.1 mg/dL 1.6-2.6 BASIC METABOLIC [id number] 05:00:00* Test Item Value Reference Range Interpretation Comments SODIUM (BEAKER) (test code = 381) 136 meq/L 136-145 POTASSIUM (BEAKER) (test code = 379) 4.1 meq/L 3.5-5.1 CHLORIDE (BEAKER) (test code = 382) 105 meq/L 98-107 CO2 (BEAKER) (test code = 355) 24 meq/L 22-29 BLOOD UREA NITROGEN (BEAKER) (test code = 354) 12 mg/dL 7-21 CREATININE (BEAKER) (test code = 358) 0.79 mg/dL 0.57-1.25 GLUCOSE RANDOM (BEAKER) (test code = 652) 160 mg/dL 70-105 H CALCIUM (BEAKER) (test code = 697) 8.5 mg/dL 8.4-10.2 EGFR (BEAKER) (test code = 1092) 96 mL/min/1.73 sq m ESTIMATED GFR IS NOT ACCURATE CREATININE CLEARANCE IN PREDICTING GLOMERULAR FILTRATION RATE. ESTIMATED GFR IS NOT APPLICABLE FOR DIALYSIS PATIENTS. HEPATIC FUNCTION [id number] 05:00:00* Test Item Value Reference Range Interpretation Comments TOTAL PROTEIN (BEAKER) (test code = 770) 6.5 gm/dL 6.0-8.3 ALBUMIN (BEAKER) (test code = 1145) 3.0 g/dL 3.5-5.0 L BILIRUBIN TOTAL (BEAKER) (test code = 377) 1.7 mg/dL 0.2-1.2 H BILIRUBIN DIRECT (BEAKER) (test code = 706) 0.9 mg/dL 0.1-0.5 H ALKALINE PHOSPHATASE (BEAKER) (test code = 346) 158 U/L 40-150 H AST (SGOT) (BEAKER) (test code = 353) 18 U/L 5-34 ALT (SGPT) (BEAKER) (test code = 347) 30 U/L 6-55 B-TYPE NATRIURETIC FACTOR (BNP)2018-07-18 04:45:00* Test Item Value Reference Range Interpretation Comments B-TYPE NATRIURETIC PEPTIDE (BEAKER) (test code = 700) 214 pg/mL 0-100 H [id number] 04:35:00* Test Item Value Reference Range Interpretation Comments PROTIME (BEAKER) (test code = 759) 18.1 seconds 11.7-14.7 H INR (BEAKER) (test code = 370) 1.5 <=5.9 PARTIAL THROMBOPLASTIN TIME (BEAKER) (test code = 760) 34.3 seconds 22.5-36.0 RECOMMENDED COUMADIN/WARFARIN INR THERAPY RANGESSTANDARD DOSE: 2.0 - 3.0 Inclu jorge: PROPHYLAXIS for venous thrombosis, systemic embolization; TREATMENT for neil ous thrombosis and/or pulmonary embolus.HIGH RISK: Target INR is 2.5-3.5 for pat ients with mechanical heart valves.CT, CHEST, WITHOUT [id number] 10:36:00FINAL REPORT INDICATION: Shortness of breath, suspect [...] pulmonary arteries, indicating pulmonary artery hypertension. Signed: Luba Cardona MDReport Verified Date/Time: 07/17/2018 10:36:26 Reading Location: [facility] C013X Ortho Consult Reading Room [facility] signed by: LUBA CARDONA M.D. on 07/17/2018 10:36 AM TROPONIN [id number] 04:27:00* Test Item Value Reference Range Interpretation Comments TROPONIN I (SANTOSHAKER) (test code = 397) < ng/mL 0.00-0.03 Troponin I (TnI) levels [...] (BNP)2018-07-17 04:26:00* Test Item Value Reference Range Interpretation Comments B-TYPE NATRIURETIC PEPTIDE (BEAKER) (test code = 700) 376 pg/mL 0-100 H CBC W/PLT COUNT & AUTO [id number] 04:24:00* Test Item Value Reference Range Interpretation Comments WHITE BLOOD CELL COUNT (BEAKER) (test code = 775) 13.9 K/ L 3.5- 10.5 H RED BLOOD CELL COUNT (BEAKER) (test code = 761) 3.71 M/ L 4.63-6 .08 L HEMOGLOBIN (BEAKER) (test code = 410) 13.3 GM/DL 13.7-17.5 L HEMATOCRIT (BEAKER) (test code = 411) 40.4 % 40.1-51.0 MEAN CORPUSCULAR VOLUME (BEAKER) (test code = 753) 108.9 fL 79. 0-92.2 H MEAN CORPUSCULAR HEMOGLOBIN (BEAKER) (test code = 751) 35.8 pg 25.7-32.2 H MEAN CORPUSCULAR HEMOGLOBIN CONC (BEAKER) (test code = 752) 32.9 GM/DL 32.3-36.5 RED CELL DISTRIBUTION WIDTH (BEAKER) (test code = 412) 14.6 % 11.6-14.4 H PLATELET COUNT (BEAKER) (test code = 756) 157 K/CU MM 150-450 MEAN PLATELET VOLUME (BEAKER) (test code = 754) 11.2 fL 9.4-12 .4 NUCLEATED RED BLOOD CELLS (BEAKER) (test code = 413) 0 /100 WBC 0 -0 NEUTROPHILS RELATIVE PERCENT (BEAKER) (test code = 429) 59 % LYMPHOCYTES RELATIVE PERCENT (BEAKER) (test code = 430) 25 % MONOCYTES RELATIVE PERCENT (BEAKER) (test code = 431) 14 % EOSINOPHILS RELATIVE PERCENT (BEAKER) (test code = 432) 0 % BASOPHILS RELATIVE PERCENT (BEAKER) (test code = 437) 0 % NEUTROPHILS ABSOLUTE COUNT (BEAKER) (test code = 670) 8.21 K/ L 1.78-5.38 H LYMPHOCYTES ABSOLUTE COUNT (BEAKER) (test code = 414) 3.54 K/ L 1.32-3.57 MONOCYTES ABSOLUTE COUNT (BEAKER) (test code = 415) 1.94 K/ L 0. 30-0.82 H EOSINOPHILS ABSOLUTE COUNT (BEAKER) (test code = 416) 0.06 K/ L 0.04-0.54 BASOPHILS ABSOLUTE COUNT (BEAKER) (test code = 417) 0.03 K/ L 0. 01-0.08 IMMATURE GRANULOCYTES-RELATIVE PERCENT (BEAKER) (test code = 2801) 1 % 0-1 HEPATIC FUNCTION [id number] 04:21:00* Test Item Value Reference Range Interpretation Comments TOTAL PROTEIN (BEAKER) (test code = 770) 6.3 gm/dL 6.0-8.3 ALBUMIN (BEAKER) (test code = 1145) 2.9 g/dL 3.5-5.0 L BILIRUBIN TOTAL (BEAKER) (test code = 377) 1.5 mg/dL 0.2-1.2 H BILIRUBIN DIRECT (BEAKER) (test code = 706) 0.8 mg/dL 0.1-0.5 H ALKALINE PHOSPHATASE (BEAKER) (test code = 346) 177 U/L 40-150 H AST (SGOT) (BEAKER) (test code = 353) 19 U/L 5-34 ALT (SGPT) (BEAKER) (test code = 347) 31 U/L 6-55 BASIC METABOLIC [id number] 04:21:00* Test Item Value Reference Range Interpretation Comments SODIUM (BEAKER) (test code = 381) 138 meq/L 136-145 POTASSIUM (BEAKER) (test code = 379) 4.3 meq/L 3.5-5.1 CHLORIDE (BEAKER) (test code = 382) 109 meq/L 98-107 H CO2 (BEAKER) (test code = 355) 25 meq/L 22-29 BLOOD UREA NITROGEN (BEAKER) (test code = 354) 14 mg/dL 7-21 CREATININE (BEAKER) (test code = 358) 0.78 mg/dL 0.57-1.25 GLUCOSE RANDOM (BEAKER) (test code = 652) 118 mg/dL 70-105 H CALCIUM (BEAKER) (test code = 697) 8.6 mg/dL 8.4-10.2 EGFR (BEAKER) (test code = 1092) 97 mL/min/1.73 sq m ESTIMATED GFR IS NOT ACCURATE CREATININE CLEARANCE IN PREDICTING GLOMERULAR FILTRATION RATE. ESTIMATED GFR IS NOT APPLICABLE FOR DIALYSIS PATIENTS. PT/[id number] 04:18:00* Test Item Value Reference Range Interpretation Comments PROTIME (BEAKER) (test code = 759) 18.6 seconds 11.7-14.7 H INR (BEAKER) (test code = 370) 1.5 <=5.9 PARTIAL THROMBOPLASTIN TIME (BEAKER) (test code = 760) 37.9 seconds 22.5-36.0 H RECOMMENDED COUMADIN/WARFARIN INR THERAPY RANGESSTANDARD DOSE: 2.0 - 3.0 Inclu jorge: PROPHYLAXIS for venous thrombosis, systemic embolization; TREATMENT for neil ous thrombosis and/or pulmonary embolus.HIGH RISK: Target INR is 2.5-3.5 for pat ients with mechanical heart valves.RAD, CHEST, PA OR AP, 1 [id number] 03:40:00Reason for exam:->chest painShould this be performed [...] congestion.No focal pulmonary consolidation. Signed: Jose Almonte Verified Date/Time: 07/17/2018 03:40:53 Reading Location: [facility] B1 C013Y CT Body Reading Room E, VERTEBROPLASTY THORACIC, [id number] 15:41:00Reason for Exam:->T12 and L3 compression fracturesFINAL [...] MDReport Verified Date/Time: 05/31/2018 15:41:50 Reading Location: [place] [address] Angio Body Reading Room Electronically signed by: ANSON CHOWDHURY M.D. on 019 03:41 PM CBC W/PLT COUNT & AUTO [id number] 14:13:00* Test Item Value Reference Range Interpretation Comments WHITE BLOOD CELL COUNT (BEAKER) (test code = 775) 5.7 K/ L 3.5- 10.5 RED BLOOD CELL COUNT (BEAKER) (test code = 761) 3.86 M/ L 4.63-6 .08 L HEMOGLOBIN (BEAKER) (test code = 410) 13.7 GM/DL 13.7-17.5 HEMATOCRIT (BEAKER) (test code = 411) 40.3 % 40.1-51.0 MEAN CORPUSCULAR VOLUME (BEAKER) (test code = 753) 104.4 fL 79. 0-92.2 H MEAN CORPUSCULAR HEMOGLOBIN (BEAKER) (test code = 751) 35.5 pg 25.7-32.2 H MEAN CORPUSCULAR HEMOGLOBIN CONC (BEAKER) (test code = 752) 34.0 GM/DL 32.3-36.5 RED CELL DISTRIBUTION WIDTH (BEAKER) (test code = 412) 13.3 % 11.6-14.4 PLATELET COUNT (BEAKER) (test code = 756) 95 K/CU MM 150-450 L MEAN PLATELET VOLUME (BEAKER) (test code = 754) 12.0 fL 9.4-12 .4 NUCLEATED RED BLOOD CELLS (BEAKER) (test code = 413) 1 /100 WBC 0 -0 H NEUTROPHILS RELATIVE PERCENT (BEAKER) (test code = 429) 48 % LYMPHOCYTES RELATIVE PERCENT (BEAKER) (test code = 430) 41 % MONOCYTES RELATIVE PERCENT (BEAKER) (test code = 431) 9 % EOSINOPHILS RELATIVE PERCENT (BEAKER) (test code = 432) 2 % BASOPHILS RELATIVE PERCENT (BEAKER) (test code = 437) 1 % NEUTROPHILS ABSOLUTE COUNT (BEAKER) (test code = 670) 2.69 K/ L 1.78-5.38 LYMPHOCYTES ABSOLUTE COUNT (BEAKER) (test code = 414) 2.32 K/ L 1.32-3.57 MONOCYTES ABSOLUTE COUNT (BEAKER) (test code = 415) 0.49 K/ L 0. 30-0.82 EOSINOPHILS ABSOLUTE COUNT (BEAKER) (test code = 416) 0.11 K/ L 0.04-0.54 BASOPHILS ABSOLUTE COUNT (BEAKER) (test code = 417) 0.03 K/ L 0. 01-0.08 IMMATURE GRANULOCYTES-RELATIVE PERCENT (BEAKER) (test code = 2801) 1 % 0-1 PROTHROMBIN TIME/[id number] 13:56:00* Test Item Value Reference Range Interpretation Comments PROTIME (BEAKER) (test code = 759) 18.6 seconds 11.7-14.7 H INR (BEAKER) (test code = 370) 1.6 <=5.9 RECOMMENDED COUMADIN/WARFARIN INR THERAPY RANGESSTANDARD DOSE: 2.0 - 3.0 Inclu jorge: PROPHYLAXIS for venous thrombosis, systemic embolization; TREATMENT for neil ous thrombosis and/or pulmonary embolus.HIGH RISK: Target INR is 2.5-3.5 for pat ients with mechanical heart valves.[id number] 13:56:00* Test Item Value Reference Range Interpretation Comments PARTIAL THROMBOPLASTIN TIME (BEAKER) (test code = 760) 34.0 seconds 22.5-36.0 BASIC METABOLIC [id number] 13:55:00* Test Item Value Reference Range Interpretation Comments SODIUM (BEAKER) (test code = 381) 135 meq/L 136-145 L POTASSIUM (BEAKER) (test code = 379) 3.9 meq/L 3.5-5.1 Specimen slightly hemolyzed CHLORIDE (BEAKER) (test code = 382) 106 meq/L 98-107 CO2 (BEAKER) (test code = 355) 24 meq/L 22-29 BLOOD UREA NITROGEN (BEAKER) (test code = 354) 6 mg/dL 7-21 L CREATININE (BEAKER) (test code = 358) 0.72 mg/dL 0.57-1.25 Specimen slightly hemolyzed GLUCOSE RANDOM (BEAKER) (test code = 652) 92 mg/dL 70-105 CALCIUM (BEAKER) (test code = 697) 8.4 mg/dL 8.4-10.2 EGFR (BEAKER) (test code = 1092) 107 mL/min/1.73 sq m ESTIMATED GFR IS NOT ACCURATE CREATININE CLEARANCE IN PREDICTING GLOMERULAR FILTRATION RATE. ESTIMATED GFR IS NOT APPLICABLE FOR DIALYSIS PATIENTS. Specimen slightly ictericBLOOD [id number] 06:00:00* Test Item Value Reference Range Interpretation Comments CULTURE (BEAKER) (test code = 1095) No growth in 5 days BLOOD [id number] 06:00:00* Test Item Value Reference Range Interpretation Comments CULTURE (BEAKER) (test code = 1095) No growth in 5 days BASIC METABOLIC [id number] 07:09:00* Test Item Value Reference Range Interpretation Comments SODIUM (BEAKER) (test code = 381) 135 meq/L 136-145 L POTASSIUM (BEAKER) (test code = 379) 3.9 meq/L 3.5-5.1 CHLORIDE (BEAKER) (test code = 382) 105 meq/L 98-107 CO2 (BEAKER) (test code = 355) 23 meq/L 22-29 BLOOD UREA NITROGEN (BEAKER) (test code = 354) 11 mg/dL 7-21 CREATININE (BEAKER) (test code = 358) 0.78 mg/dL 0.57-1.25 GLUCOSE RANDOM (BEAKER) (test code = 652) 99 mg/dL 70-105 CALCIUM (BEAKER) (test code = 697) 8.6 mg/dL 8.4-10.2 EGFR (BEAKER) (test code = 1092) 97 mL/min/1.73 sq m ESTIMATED GFR IS NOT ACCURATE CREATININE CLEARANCE IN PREDICTING GLOMERULAR FILTRATION RATE. ESTIMATED GFR IS NOT APPLICABLE FOR DIALYSIS PATIENTS. Specimen slightly ictericCBC W/PLT COUNT & AUTO [id number] 06:41:00 * Test Item Value Reference Range Interpretation Comments WHITE BLOOD CELL COUNT (BEAKER) (test code = 775) 6.7 K/ L 3.5- 10.5 RED BLOOD CELL COUNT (BEAKER) (test code = 761) 3.77 M/ L 4.63-6 .08 L HEMOGLOBIN (BEAKER) (test code = 410) 13.6 GM/DL 13.7-17.5 L HEMATOCRIT (BEAKER) (test code = 411) 40.1 % 40.1-51.0 MEAN CORPUSCULAR VOLUME (BEAKER) (test code = 753) 106.4 fL 79. 0-92.2 H MEAN CORPUSCULAR HEMOGLOBIN (BEAKER) (test code = 751) 36.1 pg 25.7-32.2 H MEAN CORPUSCULAR HEMOGLOBIN CONC (BEAKER) (test code = 752) 33.9 GM/DL 32.3-36.5 RED CELL DISTRIBUTION WIDTH (BEAKER) (test code = 412) 13.6 % 11.6-14.4 PLATELET COUNT (BEAKER) (test code = 756) 158 K/CU MM 150-450 MEAN PLATELET VOLUME (BEAKER) (test code = 754) 10.9 fL 9.4-12 .4 NUCLEATED RED BLOOD CELLS (BEAKER) (test code = 413) 0 /100 WBC 0 -0 NEUTROPHILS RELATIVE PERCENT (BEAKER) (test code = 429) 50 % LYMPHOCYTES RELATIVE PERCENT (BEAKER) (test code = 430) 32 % MONOCYTES RELATIVE PERCENT (BEAKER) (test code = 431) 12 % EOSINOPHILS RELATIVE PERCENT (BEAKER) (test code = 432) 4 % BASOPHILS RELATIVE PERCENT (BEAKER) (test code = 437) 1 % NEUTROPHILS ABSOLUTE COUNT (BEAKER) (test code = 670) 3.37 K/ L 1.78-5.38 LYMPHOCYTES ABSOLUTE COUNT (BEAKER) (test code = 414) 2.18 K/ L 1.32-3.57 MONOCYTES ABSOLUTE COUNT (BEAKER) (test code = 415) 0.82 K/ L 0. 30-0.82 EOSINOPHILS ABSOLUTE COUNT (BEAKER) (test code = 416) 0.28 K/ L 0.04-0.54 BASOPHILS ABSOLUTE COUNT (BEAKER) (test code = 417) 0.05 K/ L 0. 01-0.08 IMMATURE GRANULOCYTES-RELATIVE PERCENT (BEAKER) (test code = 2801) 0 % 0-1 BASIC METABOLIC [id number] 18:42:00* Test Item Value Reference Range Interpretation Comments SODIUM (BEAKER) (test code = 381) 136 meq/L 136-145 POTASSIUM (BEAKER) (test code = 379) 4.0 meq/L 3.5-5.1 Specimen slightly hemolyzed CHLORIDE (BEAKER) (test code = 382) 105 meq/L 98-107 CO2 (BEAKER) (test code = 355) 23 meq/L 22-29 BLOOD UREA NITROGEN (BEAKER) (test code = 354) 9 mg/dL 7-21 CREATININE (BEAKER) (test code = 358) 0.81 mg/dL 0.57-1.25 Specimen slightly hemolyzed GLUCOSE RANDOM (BEAKER) (test code = 652) 100 mg/dL 70-105 CALCIUM (BEAKER) (test code = 697) 8.7 mg/dL 8.4-10.2 EGFR (BEAKER) (test code = 1092) 93 mL/min/1.73 sq m ESTIMATED GFR IS NOT ACCURATE CREATININE CLEARANCE IN PREDICTING GLOMERULAR FILTRATION RATE. ESTIMATED GFR IS NOT APPLICABLE FOR DIALYSIS PATIENTS. CBC W/PLT COUNT & AUTO [id number] 18:29:00* Test Item Value Reference Range Interpretation Comments WHITE BLOOD CELL COUNT (BEAKER) (test code = 775) 6.9 K/ L 3.5- 10.5 RED BLOOD CELL COUNT (BEAKER) (test code = 761) 4.05 M/ L 4.63-6 .08 L HEMOGLOBIN (BEAKER) (test code = 410) 14.4 GM/DL 13.7-17.5 HEMATOCRIT (BEAKER) (test code = 411) 42.7 % 40.1-51.0 MEAN CORPUSCULAR VOLUME (BEAKER) (test code = 753) 105.4 fL 79. 0-92.2 H MEAN CORPUSCULAR HEMOGLOBIN (BEAKER) (test code = 751) 35.6 pg 25.7-32.2 H MEAN CORPUSCULAR HEMOGLOBIN CONC (BEAKER) (test code = 752) 33.7 GM/DL 32.3-36.5 RED CELL DISTRIBUTION WIDTH (BEAKER) (test code = 412) 13.8 % 11.6-14.4 PLATELET COUNT (BEAKER) (test code = 756) 178 K/CU MM 150-450 MEAN PLATELET VOLUME (BEAKER) (test code = 754) 10.7 fL 9.4-12 .4 NUCLEATED RED BLOOD CELLS (BEAKER) (test code = 413) 0 /100 WBC 0 -0 NEUTROPHILS RELATIVE PERCENT (BEAKER) (test code = 429) 52 % LYMPHOCYTES RELATIVE PERCENT (BEAKER) (test code = 430) 33 % MONOCYTES RELATIVE PERCENT (BEAKER) (test code = 431) 11 % EOSINOPHILS RELATIVE PERCENT (BEAKER) (test code = 432) 3 % BASOPHILS RELATIVE PERCENT (BEAKER) (test code = 437) 1 % NEUTROPHILS ABSOLUTE COUNT (BEAKER) (test code = 670) 3.55 K/ L 1.78-5.38 LYMPHOCYTES ABSOLUTE COUNT (BEAKER) (test code = 414) 2.30 K/ L 1.32-3.57 MONOCYTES ABSOLUTE COUNT (BEAKER) (test code = 415) 0.75 K/ L 0. 30-0.82 EOSINOPHILS ABSOLUTE COUNT (BEAKER) (test code = 416) 0.23 K/ L 0.04-0.54 BASOPHILS ABSOLUTE COUNT (BEAKER) (test code = 417) 0.04 K/ L 0. 01-0.08 IMMATURE GRANULOCYTES-RELATIVE PERCENT (BEAKER) (test code = 2801) 0 % 0-1 BASIC METABOLIC [id number] 05:47:00* Test Item Value Reference Range Interpretation Comments SODIUM (BEAKER) (test code = 381) 136 meq/L 136-145 POTASSIUM (BEAKER) (test code = 379) 4.0 meq/L 3.5-5.1 Specimen slightly hemolyzed CHLORIDE (BEAKER) (test code = 382) 107 meq/L 98-107 CO2 (BEAKER) (test code = 355) 21 meq/L 22-29 L BLOOD UREA NITROGEN (BEAKER) (test code = 354) 7 mg/dL 7-21 CREATININE (BEAKER) (test code = 358) 0.71 mg/dL 0.57-1.25 Specimen slightly hemolyzed GLUCOSE RANDOM (BEAKER) (test code = 652) 90 mg/dL 70-105 CALCIUM (BEAKER) (test code = 697) 8.1 mg/dL 8.4-10.2 L EGFR (BEAKER) (test code = 1092) 108 mL/min/1.73 sq m ESTIMATED GFR IS NOT ACCURATE CREATININE CLEARANCE IN PREDICTING GLOMERULAR FILTRATION RATE. ESTIMATED GFR IS NOT APPLICABLE FOR DIALYSIS PATIENTS. CBC W/PLT COUNT & AUTO [id number] 05:30:00* Test Item Value Reference Range Interpretation Comments WHITE BLOOD CELL COUNT (BEAKER) (test code = 775) 7.4 K/ L 3.5- 10.5 RED BLOOD CELL COUNT (BEAKER) (test code = 761) 3.62 M/ L 4.63-6 .08 L HEMOGLOBIN (BEAKER) (test code = 410) 13.1 GM/DL 13.7-17.5 L HEMATOCRIT (BEAKER) (test code = 411) 39.4 % 40.1-51.0 L MEAN CORPUSCULAR VOLUME (BEAKER) (test code = 753) 108.8 fL 79. 0-92.2 H MEAN CORPUSCULAR HEMOGLOBIN (BEAKER) (test code = 751) 36.2 pg 25.7-32.2 H MEAN CORPUSCULAR HEMOGLOBIN CONC (BEAKER) (test code = 752) 33.2 GM/DL 32.3-36.5 RED CELL DISTRIBUTION WIDTH (BEAKER) (test code = 412) 14.3 % 11.6-14.4 PLATELET COUNT (BEAKER) (test code = 756) 149 K/CU MM 150-450 L MEAN PLATELET VOLUME (BEAKER) (test code = 754) 11.1 fL 9.4-12 .4 NUCLEATED RED BLOOD CELLS (BEAKER) (test code = 413) 0 /100 WBC 0 -0 NEUTROPHILS RELATIVE PERCENT (BEAKER) (test code = 429) 54 % LYMPHOCYTES RELATIVE PERCENT (BEAKER) (test code = 430) 31 % MONOCYTES RELATIVE PERCENT (BEAKER) (test code = 431) 12 % EOSINOPHILS RELATIVE PERCENT (BEAKER) (test code = 432) 3 % BASOPHILS RELATIVE PERCENT (BEAKER) (test code = 437) 0 % NEUTROPHILS ABSOLUTE COUNT (BEAKER) (test code = 670) 3.98 K/ L 1.78-5.38 LYMPHOCYTES ABSOLUTE COUNT (BEAKER) (test code = 414) 2.31 K/ L 1.32-3.57 MONOCYTES ABSOLUTE COUNT (BEAKER) (test code = 415) 0.87 K/ L 0. 30-0.82 H EOSINOPHILS ABSOLUTE COUNT (BEAKER) (test code = 416) 0.22 K/ L 0.04-0.54 BASOPHILS ABSOLUTE COUNT (BEAKER) (test code = 417) 0.03 K/ L 0. 01-0.08 IMMATURE GRANULOCYTES-RELATIVE PERCENT (BEAKER) (test code = 2801) 0 % 0-1 BASIC METABOLIC [id number] 12:04:00* Test Item Value Reference Range Interpretation Comments SODIUM (BEAKER) (test code = 381) 137 meq/L 136-145 POTASSIUM (BEAKER) (test code = 379) 3.7 meq/L 3.5-5.1 CHLORIDE (BEAKER) (test code = 382) 111 meq/L 98-107 H CO2 (BEAKER) (test code = 355) 21 meq/L 22-29 L BLOOD UREA NITROGEN (BEAKER) (test code = 354) 10 mg/dL 7-21 CREATININE (BEAKER) (test code = 358) 0.70 mg/dL 0.57-1.25 GLUCOSE RANDOM (BEAKER) (test code = 652) 92 mg/dL 70-105 CALCIUM (BEAKER) (test code = 697) 8.1 mg/dL 8.4-10.2 L EGFR (BEAKER) (test code = 1092) 110 mL/min/1.73 sq m ESTIMATED GFR IS NOT ACCURATE CREATININE CLEARANCE IN PREDICTING GLOMERULAR FILTRATION RATE. ESTIMATED GFR IS NOT APPLICABLE FOR DIALYSIS PATIENTS. Specimen slightly ictericCBC W/PLT COUNT & AUTO [id number] 11:52:00 * Test Item Value Reference Range Interpretation Comments WHITE BLOOD CELL COUNT (BEAKER) (test code = 775) 7.7 K/ L 3.5- 10.5 RED BLOOD CELL COUNT (BEAKER) (test code = 761) 3.62 M/ L 4.63-6 .08 L HEMOGLOBIN (BEAKER) (test code = 410) 13.0 GM/DL 13.7-17.5 L HEMATOCRIT (BEAKER) (test code = 411) 38.5 % 40.1-51.0 L MEAN CORPUSCULAR VOLUME (BEAKER) (test code = 753) 106.4 fL 79. 0-92.2 H MEAN CORPUSCULAR HEMOGLOBIN (BEAKER) (test code = 751) 35.9 pg 25.7-32.2 H MEAN CORPUSCULAR HEMOGLOBIN CONC (BEAKER) (test code = 752) 33.8 GM/DL 32.3-36.5 RED CELL DISTRIBUTION WIDTH (BEAKER) (test code = 412) 14.2 % 11.6-14.4 PLATELET COUNT (BEAKER) (test code = 756) 138 K/CU MM 150-450 L MEAN PLATELET VOLUME (BEAKER) (test code = 754) 11.0 fL 9.4-12 .4 NUCLEATED RED BLOOD CELLS (BEAKER) (test code = 413) 0 /100 WBC 0 -0 NEUTROPHILS RELATIVE PERCENT (BEAKER) (test code = 429) 56 % LYMPHOCYTES RELATIVE PERCENT (BEAKER) (test code = 430) 28 % MONOCYTES RELATIVE PERCENT (BEAKER) (test code = 431) 13 % EOSINOPHILS RELATIVE PERCENT (BEAKER) (test code = 432) 2 % BASOPHILS RELATIVE PERCENT (BEAKER) (test code = 437) 0 % NEUTROPHILS ABSOLUTE COUNT (BEAKER) (test code = 670) 4.31 K/ L 1.78-5.38 LYMPHOCYTES ABSOLUTE COUNT (BEAKER) (test code = 414) 2.17 K/ L 1.32-3.57 MONOCYTES ABSOLUTE COUNT (BEAKER) (test code = 415) 1.01 K/ L 0. 30-0.82 H EOSINOPHILS ABSOLUTE COUNT (BEAKER) (test code = 416) 0.16 K/ L 0.04-0.54 BASOPHILS ABSOLUTE COUNT (BEAKER) (test code = 417) 0.03 K/ L 0. 01-0.08 IMMATURE GRANULOCYTES-RELATIVE PERCENT (BEAKER) (test code = 2801) 0 % 0-1 BASIC METABOLIC [id number] 22:30:00* Test Item Value Reference Range Interpretation Comments SODIUM (BEAKER) (test code = 381) 134 meq/L 136-145 L POTASSIUM (BEAKER) (test code = 379) 3.6 meq/L 3.5-5.1 CHLORIDE (BEAKER) (test code = 382) 108 meq/L 98-107 H CO2 (BEAKER) (test code = 355) 19 meq/L 22-29 L BLOOD UREA NITROGEN (BEAKER) (test code = 354) 12 mg/dL 7-21 CREATININE (BEAKER) (test code = 358) 0.77 mg/dL 0.57-1.25 GLUCOSE RANDOM (BEAKER) (test code = 652) 132 mg/dL 70-105 H CALCIUM (BEAKER) (test code = 697) 8.3 mg/dL 8.4-10.2 L EGFR (BEAKER) (test code = 1092) 99 mL/min/1.73 sq m ESTIMATED GFR IS NOT ACCURATE CREATININE CLEARANCE IN PREDICTING GLOMERULAR FILTRATION RATE. ESTIMATED GFR IS NOT APPLICABLE FOR DIALYSIS PATIENTS. Specimen slightly ictericHEPATIC FUNCTION [id number] 22:30:00* Test Item Value Reference Range Interpretation Comments TOTAL PROTEIN (BEAKER) (test code = 770) 6.5 gm/dL 6.0-8.3 ALBUMIN (BEAKER) (test code = 1145) 3.0 g/dL 3.5-5.0 L BILIRUBIN TOTAL (BEAKER) (test code = 377) 2.7 mg/dL 0.2-1.2 H BILIRUBIN DIRECT (BEAKER) (test code = 706) 1.4 mg/dL 0.1-0.5 H ALKALINE PHOSPHATASE (BEAKER) (test code = 346) 124 U/L 40-150 AST (SGOT) (BEAKER) (test code = 353) 16 U/L 5-34 ALT (SGPT) (BEAKER) (test code = 347) 14 U/L 6-55 Specimen slightly [id number] 22:30:00* Test Item Value Reference Range Interpretation Comments LIPASE (BEAKER) (test code = 749) 21 U/L 8-78 Specimen slightly ictericCBC W/PLT COUNT & AUTO [id number] 22:12:00 * Test Item Value Reference Range Interpretation Comments WHITE BLOOD CELL COUNT (BEAKER) (test code = 775) 10.3 K/ L 3.5- 10.5 RED BLOOD CELL COUNT (BEAKER) (test code = 761) 3.80 M/ L 4.63-6 .08 L HEMOGLOBIN (BEAKER) (test code = 410) 13.6 GM/DL 13.7-17.5 L HEMATOCRIT (BEAKER) (test code = 411) 40.3 % 40.1-51.0 MEAN CORPUSCULAR VOLUME (BEAKER) (test code = 753) 106.1 fL 79. 0-92.2 H MEAN CORPUSCULAR HEMOGLOBIN (BEAKER) (test code = 751) 35.8 pg 25.7-32.2 H MEAN CORPUSCULAR HEMOGLOBIN CONC (BEAKER) (test code = 752) 33.7 GM/DL 32.3-36.5 RED CELL DISTRIBUTION WIDTH (BEAKER) (test code = 412) 14.3 % 11.6-14.4 PLATELET COUNT (BEAKER) (test code = 756) 157 K/CU MM 150-450 MEAN PLATELET VOLUME (BEAKER) (test code = 754) 10.8 fL 9.4-12 .4 NUCLEATED RED BLOOD CELLS (BEAKER) (test code = 413) 0 /100 WBC 0 -0 NEUTROPHILS RELATIVE PERCENT (BEAKER) (test code = 429) 59 % LYMPHOCYTES RELATIVE PERCENT (BEAKER) (test code = 430) 28 % MONOCYTES RELATIVE PERCENT (BEAKER) (test code = 431) 11 % EOSINOPHILS RELATIVE PERCENT (BEAKER) (test code = 432) 1 % BASOPHILS RELATIVE PERCENT (BEAKER) (test code = 437) 0 % NEUTROPHILS ABSOLUTE COUNT (BEAKER) (test code = 670) 6.05 K/ L 1.78-5.38 H LYMPHOCYTES ABSOLUTE COUNT (BEAKER) (test code = 414) 2.86 K/ L 1.32-3.57 MONOCYTES ABSOLUTE COUNT (BEAKER) (test code = 415) 1.17 K/ L 0. 30-0.82 H EOSINOPHILS ABSOLUTE COUNT (BEAKER) (test code = 416) 0.14 K/ L 0.04-0.54 BASOPHILS ABSOLUTE COUNT (BEAKER) (test code = 417) 0.03 K/ L 0. 01-0.08 IMMATURE GRANULOCYTES-RELATIVE PERCENT (BEAKER) (test code = 2801) 1 % 0-1 CT, SPINE, LUMBAR, WO [id number] 21:09:00Reason for exam:->BACK PAINworsening over the last [...] MDReport Verified Date/Time: 02/01/2018 21:09:21 Reading Location: [facility] B1 C013Y CT Body Reading Room , SPINE, [...] can be performed if clinically indicated. Signed: Burt De La Cruz MDReport Verified Date/Time: 02/01/2018 20:56:47 Reading Location: [address] Reading Room , SPINE, THORACIC, WO [id number] 20:51:00Reason for exam:->BACK PAINworsening over the last [...] upper lobe pneumonia versus aspiration pneumonitis. Signed: Felix Hajiort Courtney royal Date/Time: 02/01/2018 20:51:05 Reading Location: [facility] Reading Room
--- NOTE | 2019-10-18 19:26 | NUR ---
Patient to room 8 at this time
--- NOTE | 2019-10-18 19:40 | Emergency Department Note ---
History of Present Illnes History of Present Illness Chief Complaint: General Medicine Complaints History of Present Illness This is a 74 year old male brought by family member for myriad of complaints and generalized weakness of 4 weeks. patient with increasing deconditioning stemming from continued alcohol abuse, recent back compression fx. Sent by PCP for further evaluation Historian: Patient, Family Member Arrival Mode: Car Onset (how long ago): week(s) (4) Location: abd, LLE, lumbar back Radiation: Reports back, Reports abdomen, Reports distal Severity: moderate Onset quality: gradual Duration (how long): week(s) (4) Timing of current episode: constant Progression: worsening Chronicity: new Context: Reports recent illness, Reports non-compliance w/ medications Relieving factors: none Exacerbating factors: none Associated symptoms: Reports malaise, Reports weakness Treatments prior to arrival: none Previous service: tests performed, re-evaluation Past Medical/Family History Physician Review I have reviewed the patient's past medical and family history. Any updates have been documented here. Past Medical History Recent Fever: No Clinical Suspicion of Infectio: No New/Unexplained Change in Ment: No Past Medical History: COPD, Hypothyroidism, Hepatitis C, Liver Disease Other Medical History: gallstones hypotension cirrhosis Other Surgery: TIPS procedure left BKA with prosthesis Social History Smoking Cessation: Never Smoker Alcohol Use: Daily Any Illegal Drug Use: No Other Last Tetanus: UNK Review of Systems Review of Systems Constitutional: Reports weakness EENTM: Reports no symptoms Cardiovascular: Reports no symptoms Respiratory: Reports no symptoms Gastrointestinal: Reports abdominal pain, Reports nausea Genitourinary: Reports no symptoms Musculoskeletal: Reports back pain Integumentary: Reports no symptoms Neurological: Reports no symptoms Psychological: Reports no symptoms Endocrine: Reports no symptoms Hematological/Lymphatic: Reports no symptoms Review of other systems All other systems reviewed and negative. Physical Exam Related Data Allergies: Coded Allergies: pregabalin (Verified Allergy, Unknown, 02/01/18) Triage Vital Signs Vital Signs Date Time Temp Pulse Resp B/P (MAP) Pulse Ox O2 Delivery O2 Flow Rate FiO2 10/18/19 18:12 97.9 83 18 117/67 93 Physical Exam CONSTITUTIONAL Constitutional: Reports obese, Reports morbidly obese, Reports ill appearing HENT HENT: Reports normocephalic, Reports atraumatic, Reports oropharynx clear/moist, Reports nose normal HENT L/R: Reports left ext ear normal, Reports right ext ear normal EYES Eyes: Reports PERRL, Reports conjunctivae normal NECK Neck: Reports ROM normal PULMONARY Pulmonary: Reports effort normal, Reports breath sounds normal CARDIOVASCULAR Cardiovascular: Reports regular rhythm, Reports heart sounds normal, Reports capillary refill normal, Reports normal rate GASTROINTESTINAL Abdominal: Reports soft, Reports distension, Reports tender, Reports mass (hepatomegaly), Reports other (marked distension. ) GENITOURINARY Genitourinary: Reports exam deferred SKIN Skin: Reports warm, Reports dry MUSCULOSKELETAL Musculoskeletal: Reports edema (1+ Pedal edema left) NEUROLOGICAL Neurological: Reports alert, Reports oriented x 3 PSYCHOLOGICAL Psychological: Reports mood/affect normal, Reports judgement normal Results Laboratory Lab results reviewed: Yes Laboratory comments Laboratory Tests Test 10/18/19 21:50 10/18/19 20:42 Urine Color Yellow (YELLOW) Urine Clarity Sl cloudy (CLEAR) Urine pH 7 (5 - 7) Urine Specific [place] 1.025 (1.010-1.025) Urine Protein Negative (NEGATIVE) Urine Glucose (UA) Negative (NEGATIVE) Urine Ketones Negative (NEGATIVE) Urine Blood Negative (NEGATIVE) Urine Nitrite Negative (NEGATIVE) Urine Bilirubin Negative (NEGATIVE) Urine Urobilinogen 0.2 mg/dL (0.2 - 1) Urine Leukocyte Esterase Small (NEGATIVE) Urine RBC None /HPF (0-5) Urine WBC 6-10 /HPF (0-5) Urine Epithelial Cells None /LPF (NONE) Urine Bacteria Many /HPF (NONE) White Blood Count 8.41 x10e3/uL (4.8-10.8) Red Blood Count 3.80 x10e6/uL (4.3-5.7) Hemoglobin 13.4 g/dL (14.0-18.0) Hematocrit 39.3 % (38.2-49.6) Mean Corpuscular Volume 103.4 fL (81-99) Mean Corpuscular Hemoglobin 35.3 pg (28-32) Mean Corpuscular Hemoglobin Concent 34.1 g/dL (31-35) Red Cell Distribution Width 14.3 % (11.7-14.4) Platelet Count 166 x10e3/uL (140-360) Neutrophils (%) (Auto) 47.4 % (38.7-80.0) Lymphocytes (%) (Auto) 39.2 % (18.0-39.1) Monocytes (%) (Auto) 11.4 % (4.4-11.3) Eosinophils (%) (Auto) 1.1 % (0.0-6.0) Basophils (%) (Auto) 0.5 % (0.0-1.0) Neutrophils # (Auto) 4.0 (2.1-6.9) Lymphocytes # (Auto) 3.3 (1.0-3.2) Monocytes # (Auto) 1.0 (0.2-0.8) Eosinophils # (Auto) 0.1 (0.0-0.4) Basophils # (Auto) 0.0 (0.0-0.1) Absolute Immature Granulocyte (auto 0.03 x10e3/uL (0-0.1) Prothrombin Time 18.7 seconds (11.9-14.5) Prothromb Time International Ratio 1.46 Activated Partial Thromboplast Time 40.3 seconds (23.8-35.5) Sodium Level 137 mmol/L (136-145) Potassium Level 3.5 mmol/L (3.5-5.1) Chloride Level 106 mmol/L (98-107) Carbon Dioxide Level 20 mmol/L (22-29) Anion Gap 14.5 mmol/L (8-16) Blood Urea Nitrogen 9 mg/dL (7-26) Creatinine 0.86 mg/dL (0.72-1.25) Estimat Glomerular Filtration Rate > 60 ML/MIN (60-) BUN/Creatinine Ratio 10 (6-25) Glucose Level 94 mg/dL (74-118) Lactic Acid Level 1.7 mmol/L (0.5-2.0) Calcium Level 8.3 mg/dL (8.4-10.2) Magnesium Level 1.7 MG/DL (1.3-2.1) Total Bilirubin 1.7 mg/dL (0.2-1.2) Aspartate Amino Transf (AST/SGOT) 27 IU/L (5-34) Alanine Aminotransferase (ALT/SGPT) 18 IU/L (0-55) Alkaline Phosphatase 122 IU/L (40-150) Ammonia 84 UG/DL (31-123) Creatine Kinase 43 IU/L (30-200) Creatine Kinase MB 1.50 ng/mL (0-5.0) Troponin I 0.052 ng/mL (0-0.300) B-Type Natriuretic Peptide 65.3 pg/mL (0-100) Total Protein 6.7 g/dL (6.5-8.1) Albumin 2.9 g/dL (3.5-5.0) Globulin 3.8 g/dL (2.3-3.5) Albumin/Globulin Ratio 0.8 (0.8-2.0) Lipase 34 U/L (8-78) Thyroid Stimulating Hormone (TSH) 1.555 uIU/mL (0.350-4.940) Imaging Imaging results reviewed: Yes Impressions [place] [address] Patient Name: SAMY NEIL MR #: [id number] : 1945 Age/Sex: 74/M Req #: [id number] Adm Physician: Ordered by: CORINE ANDUJAR MD Report #: [id number] Location: ER Room/Bed: Procedure: [id number] CT/CT ABDOMEN/PELVIS W Exam Date: 10/18/19 Exam Time: 2222 REPORT STATUS: Signed EXAM: CT Abdomen and Pelvis WITH contrast INDICATION: ^Y ^abd pain ^[id number] ^2222 COMPARISON: Chest CT dated 06/20/2019 TECHNIQUE: Abdomen and pelvis were scanned utilizing a multidetector helical scanner from the lung base to the pubic symphysis after administration of IV contrast. Coronal and sagittal reformations were obtained. Dose modulation, iterative reconstruction, and/or weight based adjustment of the mA/kV was utilized to reduce the radiation dose to as low as reasonably achievable. Routine protocol was performed. Scan was performed when during portal venous phase. IV CONTRAST: 100 mL of Isovue-370 ORAL CONTRAST: None COMPLICATIONS: None RADIATION DOSE: Total DLP: 767.68 mGy*cm Estimated effective dose: (DLP x 0.015 x size factor) mSv CTDIvol has been reviewed. It is below the limits set by the Radiation Protocol Committee (RPC). FINDINGS: LINES and TUBES: TIPS. Right groin central line in place with tip terminating in right external iliac vein. LOWER THORAX: Centrilobular emphysematous changes. Mild vascular congestion. Minimal dependent atelectasis. HEPATOBILIARY: Cirrhotic liver. Stable 0.7 cm left hepatic lobe hypodensity (series 2, image 14). Additional cluster of subcentimeter hypodensities in the left hepatic lobe (series 2, image 17). No biliary ductal dilation. GALLBLADDER: Dependent calcified gallstones. No wall thickening. SPLEEN: Mild splenomegaly. PANCREAS: No focal masses or ductal dilatation. ADRENALS: No adrenal nodules KIDNEYS/URETERS: Kidneys enhance symmetrically. No hydronephrosis. 2 cm left mid to superior pole cyst. Additional bilateral subcentimeter hypodensities are too small to characterize, but are probably cysts as well. Right renal midpole focal scarring. No stones. GI TRACT: No abnormal distention, wall thickening, or evidence of bowel obstruction. Appendix is normal. Small hiatal hernia. PELVIC ORGANS/BLADDER: Mild bladder wall thickening. Anterior and smaller posterior right bladder wall diverticuli. Mild perivesicular fat stranding. LYMPH NODES: No lymphadenopathy. VESSELS: Dilated portal vein measuring 1.[address] Mild aortoiliac atherosclerotic disease. PERITONEUM / RETROPERITONEUM: No free air or fluid. BONES: Generalized demineralization. Old right-sided rib fracture deformities. L3 and T12 compression deformities with evidence of arthroplasty. Age indeterminate L1 compression deformity. SOFT TISSUES: Subcutaneous right groin fat stranding, likely related to central line placement. There is also mild fat stranding adjacent to the right femoral veins (series 2, image 88). IMPRESSION: 1. Cirrhotic liver with TIPS in place. 2. Tiny left hepatic lobe hypodensities are too small to characterize. If clinically indicated, nonurgent liver mass protocol MRI can be obtained to further characterize. 3. Cholelithiasis without evidence of cholecystitis. 4. Mild bladder wall thickening and perivesical fat stranding, could represent cystitis in the appropriate clinical context. There are also bladder diverticuli as above. 5. L1 vertebral body compression deformity, new when compared to chest CT dated 06/20/2019. 6. Right groin central line in place with tip terminating in right external iliac vein. There is fat stranding/increased density surrounding the right common femoral vessels, suspicious for a small hematoma, probably postprocedural. Signed by: Dr. David Gilliam MD on 10/18/2019 11:06 PM Dictated By: DAVID GILLIAM MD 05 Transcribed By: BINA on 10/18/192305 COPY TO: CORINE ANDUJAR MD~ [place] [address] Patient Name: SAMY NEIL MR #: [id number] : 1945 Age/Sex: 74/M Req #: [id number] Adm Physician: Ordered by: CORINE ANDUJRA MD Report #: [id number] Location: ER Room/Bed: Procedure: [id number] DX/CHEST SINGLE (PORTABLE) Exam Date: Exam Time: REPORT STATUS: Signed EXAM: CHEST SINGLE (PORTABLE) DATE: 10/18/2019 7:26 PM INDICATION: Left flank pain ^Y ^ERMD ORDER ^Y COMPARISON: Chest x-ray, 06/21/2019 FINDINGS: Lines and tubes: None. Previously noted TIPS stent is not visualized. The cardiac silhouette is slightly enlarged. The aorta is tortuous. Mild patchy airspace opacity in the upper and lower lobes, improved since last exam. No focal opacity seen on the left. No pleural effusion or pneumothorax. Upper abdomen unremarkable. No acute bony abnormality. IMPRESSION: Improvement of right multifocal pneumonia since last exam. Signed by: Dr. Nichole Howell M.D. on 10/18/2019 8:02 PM Dictated By: NICHOLE HOWELL MD 01 Transcribed By: BINA on 10/18/192001 COPY TO: CORINE ANDUJAR MD~ Procedures Central Line Placement Central Line Location: right femoral Time out performed: Yes Patient Placed on Monitor/Puls: Yes MD Prep: mask, gown, gloves Local Anesthetic: lidocaine 1% Amount of anesthesia used (mL): 5 Ultrasound Used for Placement: No Central Line Lumen Inserted: triple Post Procedure: sutured in place, good blood return, all ports aspirated/flushed/capped, sterile dressing applied Patient tolerated procedure: well Complications: none Assessment & Plan Medical Decision Making MDM Patient with gradual onset of weakness and failure to thrive. Patient sent in by PCP for evaluation. CVC placed in R femoral vein. Patient to be admitted for failure to thrive with UTI. Dr Eliecer Mena graciously accepted patient to his service. Assessment & Plan Final Impression: (1) Generalized weakness (2) Compression fx, lumbar spine (3) UTI (urinary tract infection) Depart Disposition: ADMITTED Last Vital Signs Date Time Temp Pulse Resp B/P (MAP) Pulse Ox O2 Delivery O2 Flow Rate FiO2 10/18/19 18:12 97.9 83 18 117/67 93 Home Meds Active Scripts Tramadol Hcl (ULTRAM) 50 Mg Tablet, 50 MG PO Q6H PRN for Mild Pain (1-3) or Fever>100.8, #15 TAB Prov:HILDA JO [employer] SPECIALIST 11/02/18 Sulfamethoxazole/Trimethoprim (BACTRIM DS TABLET) 1 Each Tablet, 1 TAB PO BID, #20 TAB 0 Refills Prov:HILDA JO [employer] STRATEGY SPECIALIST 11/02/18 Clindamycin Hcl (CLINDAMYCIN HCL) 300 Mg Capsule, 300 MG PO Q6H for 10 Days, #40 MG Prov:HILDA JO [employer] STRATEGY SPECIALIST 11/02/18 Reported Medications Levothyroxine Sodium (LEVOTHYROXINE SODIUM) 50 Mcg Tablet, 50 MCG PO DAILY, #30 TAB 10/30/14 Prednisone (PREDNISONE) 10 Mg Tab, 10 MG PO DAILY for 10 Days 09/07/12 Albuterol Sulfate (ALBUTEROL SULFATE) 2.5 Mg/3 Ml Vial.neb, 2.5 MG INH PRN 09/01/12 Omeprazole (OMEPRAZOLE) 20 Mg Tablet.dr, 20 MG PO BID 09/01/12 Furosemide (LASIX) 40 Mg Tablet, 40 MG PO BID 09/01/12 Lactulose (LACTULOSE) 10 Gm/15 Ml Solution, 60 ML PO EVERY OTHER DAY 09/01/12 Oxycodone Hcl (OXYCODONE HCL) 5 Mg Tablet, 5 MG PO EVERY 4HRS PRN 09/01/12 Rifaximin (XIFAXAN) 550 Mg Tablet, 550 MG PO DAILY 09/01/12 Ropinirole Hcl (ROPINIROLE HCL) 0.5 Mg Tablet, 0.5 MG PO BEDTIME 09/01/12 Spironolactone (SPIRONOLACTONE) 100 Mg Tablet, 100 MG PO TID 09/01/12 ULISES FLORES DO Oct 18, 2019 19:40
--- NOTE | 2019-10-18 19:51 | NUR ---
Unable to obtain IV access at this time. ER notified.
--- NOTE | 2019-10-18 20:05 | Diagnostic Imaging Report ---
EXAM: CHEST SINGLE (PORTABLE) DATE: 10/18/2019 7:26 PM INDICATION: Left flank pain ^Y ^ERMD ORDER ^Y COMPARISON: Chest x-ray, 06/21/2019 FINDINGS: Lines and tubes: None. Previously noted TIPS stent is not visualized. The cardiac silhouette is slightly enlarged. The aorta is tortuous. Mild patchy airspace opacity in the upper and lower lobes, improved since last exam. No focal opacity seen on the left. No pleural effusion or pneumothorax. Upper abdomen unremarkable. No acute bony abnormality. IMPRESSION: Improvement of right multifocal pneumonia since last exam. Signed by: Dr. Jose Skaggs M.D. on 10/18/2019 8:02 PM
--- NOTE | 2019-10-18 20:07 | NUR ---
Patient consented for central line at this time.
[2019-10-18 21:05] LABS: BASOPHILS % 0.5 % (0.0-1.0); EOSINOPHILS # (AUTO) 0.1 (0.0-0.4); EOSINOPHILS % 1.1 % (0.0-6.0); HEMATOCRIT 39.3 % (38.2-49.6); HEMOGLOBIN 13.4 g/dL (14.0-18.0); LYMPHOCYTES # (AUTO) 3.3 (1.0-3.2); LYMPHOCYTES % 39.2 % (18.0-39.1); MEAN CORPUSCULAR HEMOGLOBIN 35.3 pg (28-32); MEAN CORPUSCULAR HGB CONC 34.1 g/dL (31-35); MEAN CORPUSCULAR VOLUME 103.4 fL (81-99); MONOCYTES % 11.4 % (4.4-11.3); NEUTROPHILS % 47.4 % (38.7-80.0); PLATELET COUNT 166 x10e3/uL (140-360); RED CELL DISTRIBUTION WIDTH 14.3 % (11.7-14.4)
[2019-10-18 21:13] LABS: INR 1.46; PROTHROMBIN TIME 18.7 seconds (11.9-14.5)
[2019-10-18 21:14] LABS: PARTIAL THROMBOPLASTIN TIME 40.3 seconds (23.8-35.5)
[2019-10-18 21:21] LABS: ALANINE AMINOTRANSFERASE 18 IU/L (0-55); ALBUMIN 2.9 g/dL (3.5-5.0); ALBUMIN/GLOBULIN RATIO 0.8 (0.8-2.0); ALKALINE PHOSPHATASE 122 IU/L (40-150); ANION GAP 14.5 mmol/L (8-16); BLOOD UREA NITROGEN 9 mg/dL (7-26); BUN/CREATININE RATIO 10 (6-25); CALCIUM 8.3 mg/dL (8.4-10.2); CARBON DIOXIDE 20 mmol/L (22-29); CHLORIDE 106 mmol/L (98-107); CREATINE KINASE 43 IU/L (30-200); CREATININE, SERUM 0.86 mg/dL (0.72-1.25); EST GLOMERULAR FILTRATION RATE > 60 ML/MIN (60-); GLUCOSE 94 mg/dL (74-118); LIPASE 34 U/L (8-78); MAGNESIUM 1.7 MG/DL (1.3-2.1); POTASSIUM 3.5 mmol/L (3.5-5.1); SODIUM 137 mmol/L (136-145)
[2019-10-18 21:28] LABS: B-TYPE NATRIURETIC PEPTIDE2 65.3 pg/mL (0-100)
[2019-10-18 21:40] LABS: THYROID STIMULATING HORMONE 1.555 uIU/mL (0.350-4.940)
[2019-10-18 21:59] LABS: BILIRUBIN,URINE NEGATIVE (NEGATIVE); CLARITY,URINE SL CLOUDY (CLEAR); COLOR,URINE YELLOW (YELLOW); KETONES,URINE NEGATIVE (NEGATIVE); LEUKOCYTE ESTERASE ,URINE SMALL (NEGATIVE); NITRITE,URINE NEGATIVE (NEGATIVE); PROTEIN,URINE DIPSTICK NEGATIVE (NEGATIVE); URINE UROBILINOGEN 0.2 mg/dL (0.2 - 1)
[2019-10-18] MEDS ORDERED: SODIUM CHLORIDE 0.9% 50ML 0 ML ONE (22:05)
[2019-10-18] MEDS ORDERED: IOPAMIDOL 370 MG/ML 200 ML INFUS..BTL INJ ONE ×2 (22:06→22:11)
[2019-10-18] MEDS ORDERED: SODIUM CHLORIDE 0.9% 50ML 50 ML ONE (22:11)
[2019-10-18 22:12] LABS: BACTERIA,URINE MANY /HPF
[2019-10-18] MEDS ORDERED: MORPHINE SULFATE INJ 4 MG/ML INJ 1ML IV STA (23:07)
--- NOTE | 2019-10-18 23:09 | Diagnostic Imaging Report ---
EXAM: CT Abdomen and Pelvis WITH contrast INDICATION: ^Y ^abd pain ^[id number] ^2222 COMPARISON: Chest CT dated 06/20/2019 TECHNIQUE: Abdomen and pelvis were scanned utilizing a multidetector helical scanner from the lung base to the pubic symphysis after administration of IV contrast. Coronal and sagittal reformations were obtained. Dose modulation, iterative reconstruction, and/or weight based adjustment of the mA/kV was utilized to reduce the radiation dose to as low as reasonably achievable. Routine protocol was performed. Scan was performed when during portal venous phase. IV CONTRAST: 100 mL of Isovue-370 ORAL CONTRAST: None COMPLICATIONS: None RADIATION DOSE: Total DLP: 767.68 mGy*cm Estimated effective dose: (DLP x 0.015 x size factor) mSv CTDIvol has been reviewed. It is below the limits set by the Radiation Protocol Committee (RPC). FINDINGS: LINES and TUBES: TIPS. Right groin central line in place with tip terminating in right external iliac vein. LOWER THORAX: Centrilobular emphysematous changes. Mild vascular congestion. Minimal dependent atelectasis. HEPATOBILIARY: Cirrhotic liver. Stable 0.7 cm left hepatic lobe hypodensity (series 2, image 14). Additional cluster of subcentimeter hypodensities in the left hepatic lobe (series 2, image 17). No biliary ductal dilation. GALLBLADDER: Dependent calcified gallstones. No wall thickening. SPLEEN: Mild splenomegaly. PANCREAS: No focal masses or ductal dilatation. ADRENALS: No adrenal nodules KIDNEYS/URETERS: Kidneys enhance symmetrically. No hydronephrosis. 2 cm left mid to superior pole cyst. Additional bilateral subcentimeter hypodensities are too small to characterize, but are probably cysts as well. Right renal midpole focal scarring. No stones. GI TRACT: No abnormal distention, wall thickening, or evidence of bowel obstruction. Appendix is normal. Small hiatal hernia. PELVIC ORGANS/BLADDER: Mild bladder wall thickening. Anterior and smaller posterior right bladder wall diverticuli. Mild perivesicular fat stranding. LYMPH NODES: No lymphadenopathy. VESSELS: Dilated portal vein measuring 1.[address] Mild aortoiliac atherosclerotic disease. PERITONEUM / RETROPERITONEUM: No free air or fluid. BONES: Generalized demineralization. Old right-sided rib fracture deformities. L3 and T12 compression deformities with evidence of arthroplasty. Age indeterminate L1 compression deformity. SOFT TISSUES: Subcutaneous right groin fat stranding, likely related to central line placement. There is also mild fat stranding adjacent to the right femoral veins (series 2, image 88). IMPRESSION: 1. Cirrhotic liver with TIPS in place. 2. Tiny left hepatic lobe hypodensities are too small to characterize. If clinically indicated, nonurgent liver mass protocol MRI can be obtained to further characterize. 3. Cholelithiasis without evidence of cholecystitis. 4. Mild bladder wall thickening and perivesical fat stranding, could represent cystitis in the appropriate clinical context. There are also bladder diverticuli as above. 5. L1 vertebral body compression deformity, new when compared to chest CT dated 06/20/2019. 6. Right groin central line in place with tip terminating in right external iliac vein. There is fat stranding/increased density surrounding the right common femoral vessels, suspicious for a small hematoma, probably postprocedural. Signed by: Dr. David Nguyen MD on 10/18/2019 11:06 PM
[2019-10-18] MEDS ORDERED: ONDANSETRON HCL INJ 2MG/ML 2ML 2 MG/ML VIAL ONE (23:24)
[2019-10-18] MEDS: CEFTRIAXONE SOD 1 GM/NS 50 ML 50 ML IV SCH (23:24)
[2019-10-18] MEDS ORDERED: ONDANSETRON HCL INJ 2MG/ML 2ML 2 MG/ML VIAL IV PRN (23:30)
--- NOTE | 2019-10-18 23:43 | NUR ---
Unable to obtain home medications at this time. states she would bring in medications tomorrow morning.
--- OUTSIDE RECORDS SUMMARY | 2019-10-18 23:49 | XMS REPORT | Clinical Summary ---
Author Author [facility] Address Unknown Phone Unavailable Care Team Providers Care Icd 9 Coder Name Role Phone Ovidio Perez MD PCP [...] ID Type Phone Address Plan / Group [facility] [id number] Advance Directives For more information, please contact: [address] [address] Date Inactivated Comments Code Status Date Activated 07/24/2018 1:47 PM Full Code 07/17/2018 8:58 AM This code status was determined by: Patient 07/16/2018 11:00 PM Full Code 04/01/2018 4:54 PM This code status was determined by: Patient 02/07/2018 6:05 PM Full Code 02/02/2018 1:11 AM This code status was determined by: Patient
--- OUTSIDE RECORDS SUMMARY | 2019-10-18 23:49 | XMS REPORT | Continuity of Care Document ---
Author Author [facility] t Organization [facility] [place], [place] Address [address] [place] [address] Phone Unavailable Care Team Providers Care Car Knocker Name Role Phone MARY MALONEY, LAMONTE PCP Unavailable ULISES FLORES Attphys Unavailable Trenton MALONEY, Nate Da Silva Attphys Damion DO, Dusty Ellisek Attphys [phone] Reji FUNESCHING Attphys Unavailable MARIA GKarel AMBICA Attphys Unavailable OFORDEMEDIANE Attphys Unavailable NATE CHOWDHURY Attphys Unavailable FIGUEROA, CHRIS MALVIN Attphys Unavailable Reji FUNES Admphys Unavailable ALFONSO ANDERSEN Admphys Unavailable NATE CHOWDHURY Admphys Unavailable CROGABRIEL CORTEZ Admphys Unavailable Payers Payer Name Policy Type Policy Number Effective Date Expiration Date Karel underwood KELSEYCAREKELSEYCARE MEDICARE ADVxxxxxxxxxxx xxxxxxxxxxx [facility] Kelsey Care Medicare Advantage [id number] 2015 00:0 0:00 [facility] Problems Condition Name Condition Details Condition Category Status Onset Date Resolution Date Last Treatment Date Treating Clinician Comments Source Acute exacerbation of chronic obstructive pulmonary di sease (COPD) Acute exacerbation of chronic obstructive pulmonary disease (COPD) Disease Active 2018-07-17 00:00:00 [facility] LISA on CPAP LISA on CPAP Disease Active 2018-07-17 00:00:00 [facility] Amputation of left lower extremity below knee Amputati on of left lower extremity below knee Disease Active 2015-06-14 00:00:00 Johanna [facility] Tremor Tremor Disease Active 2015-06-14 00:00:00 [facility] Cirrhosis of liver without ascites Cirrhosis of liver without as cites Disease Active 2015-05-13 00:00:00 [facility] Hypothyroidism Hypothyroidism Disease Active 2015-05-13 00:00:00 [facility] RLS (restless legs syndrome) RLS (restless legs syndrome) Disease Active 2015-05-13 00:00:00 [facility] Allergies, Adverse Reactions, Alerts Allergy Name Allergy Type Status Severity Reaction(s) Onset Date Inacti ve Date Treating Clinician Comments Source Pregabalin Allergy to Substance Active 2018-02-01 00:00:00 [facility] Pregabalin Propensity to adverse reactions Active 02-01 00:00:00 "Goes Crazy" [facility] Pregabalin Propensity to adverse reactions to drug Active 2016-10-16 00:00:00 Ronn perez Social History Social Habit Start Date Stop Date Quantity Comments Source History of tobacco use Cigarette Smoker Ronn Holcomb Sex Assigned At [facility] Alcohol Comment 2018-04-01 00:00:00 2018-04-01 00:00:00 2 beers daily [facility] Cigarettes smoked current (pack per day) - Reported 00:00:00 2017-06-16 00:00:00 Ronn Holcomb Alcohol intake 2017-06-16 00:00:00 2017-06-16 00:00:00 Current drinker of alcohol (finding) Ronn Holcomb Smoking Status Start Date Stop Date Source Former smoker 2019-10-06 00:00:00 2019-10-06 00:00:00 [facility] Medications Ordered Medication Name Filled Medication Name Start Date Stop Da te Current Medication? Ordering Clinician Indication Dosage Frequency Signature (SIG) Comments Components Source gabapentin (NEURONTIN) 300 MG capsule 2019-10-06 12:06:35 Yes 300mg Q.[id number] Take 300 mg by mouth 3 (three) times daily. [facility] HYDROcodone-acetaminophen (NORCO 10-325) 10-325 mg per table t 2019-10-06 12:06:35 Yes 1{tbl} Take 1 tab let by mouth every 6 (six) hours as needed for Pain. [facility] Clindamycin Hcl 300 Mg Capsule Clindamycin Hcl 300 Mg Capsul e 2018-11-02 00:00:00 Yes Ochoa More Mass Spectrometry Manager 300 Every 6 Hours [facility] Sulfamethoxazole/Trimethoprim (Bactrim Ds Tablet) 1 Ea ch Tablet Sulfamethoxazole/Trimethoprim (Bactrim Ds Tablet) 1 Each Tablet 2018-11-02 00:00:00 Yes Ochoa More Mass Spectrometry Manager 1 Twice A Day [facility] Tramadol Hcl (Ultram) 50 Mg Tablet Tramadol Hcl (Ultram) 50 Mg Tablet 2018-11-02 00:00:00 Yes Ochoa More Mass Spectrometry Manager 50 Every 6 Hours as needed for Mild Pain (1-3) Or Fever>100.8 [facility] furosemide (LASIX) 20 MG tablet 2018-07-22 00:00:00 Yes accumulation of fluid caused by cirrhosis of the liver 40mg QD T clint 2 tablets (40 mg total) by mouth daily. [facility] fluticasone/salmeterol (ADVAIR HFA INHL) 2018-07-17 08:51:58 Yes Inhale by mouth via inhaler. [facility] tiotropium bromide (SPIRIVA RESPIMAT) 2.5 mcg/actuation Mist 2018-04-01 10:42:54 Yes 5ug Inhale 5 mcg by mouth v ia inhaler daily as needed . [facility] baclofen (LIORESAL) 10 MG tablet 2018-02-07 10:02:16 Yes 5mg Take 5 mg by mouth 3 (three) times daily as needed . [facility] risedronate (ACTONEL) 150 MG tablet 2018-02-02 01:07:03 Yes 150mg Take 150 mg by mouth every 30 (thirty) days with water on empty stomach, nothing by mouth or lie down for next 30 minutes. . [facility] spironolactone (ALDACTONE) 100 MG tablet 2018-02-01 17:16:27 Yes 100mg QD Take 100 mg by mouth daily. [facility] rOPINIRole (REQUIP) 2 MG tablet 2018-02-01 17:16:27 Yes 2mg Q.[id number] Take 2 mg by mouth 3 (three) times daily. [facility] levothyroxine (SYNTHROID, LEVOTHROID) 50 MCG tablet 02-01 17:16:27 Yes 50ug Take 50 mcg by mouth Every morning on an empty stomach. [facility] lactulose (CHRONULAC) 10 gram/15 mL (15 mL) solution 2 17:16:27 Yes 20g Q.[id number] Take 20 g by mouth 3 (thr ee) times daily. [facility] acetaminophen-codeine (TYLENOL WITH CODEINE #3) 300-30 mg pe r tablet 2017-06-11 16:46:47 Yes 1{tbl} Q4H Take 1 tablet by mouth every 4 (four) hours as needed for moderate pain. Calvin Holcomb clindamycin (CLEOCIN) 300 MG capsule 2017-06-11 16:46:47 Yes 300mg Q.[id number] Take 300 mg by mouth 3 (three) [...] MG tablet 2017-06-11 16:46:47 Ye s .5mg Q.7328713674259710721Y Take 0.5 mg by mouth 3 (three) [...] mL (15 mL) solution 2017-06-11 16:46:47 Yes Q.4165729792926184872G Take by mouth 3 (three) times a day. Ronn Holcomb Albuterol Sulfate 2.5 Mg/3 Ml Vial.neb Albuterol Sulfate 2.5 Mg/ 3 Ml Vial.neb Yes 2.5 As Needed [facility] Furosemide (Lasix) 40 Mg Tablet Furosemide (Lasix) 40 Mg Tablet Yes 40 Twice A Day [facility] Lactulose 10 Gm/15 Ml Solution Lactulose 10 Gm/15 Ml Solution Yes 60 Every Other Day [facility] Levothyroxine Sodium 50 Mcg Tablet Levothyroxine Sodium 50 Mcg Tablet Yes 50 Daily [facility] Omeprazole 20 Mg Tablet. Omeprazole 20 Mg Tablet. Yes 20 Twice A Day [facility] Oxycodone Hcl 5 Mg Tablet Oxycodone Hcl 5 Mg Tablet Yes 5 Every 4HRS Prn [facility] Prednisone 10 Mg Tab Prednisone 10 Mg Tab Yes 10 Daily [facility] Rifaximin (Xifaxan) 550 Mg Tablet Rifaximin (Xifaxan) 550 Mg Tablet Yes 550 Daily [facility] Ropinirole Hcl 0.5 Mg Tablet Ropinirole Hcl 0.5 Mg Tablet Y es .5 Bedtime [facility] Spironolactone 100 Mg Tablet Spironolactone 100 Mg Tablet Y es 100 Three Times A Day [facility] Cefdinir (Omnicef) 300 Mg Capsule, 300 Mg Oral Cefdini r (Omnicef) 300 Mg Capsule, 300 Mg Oral 2014-10-30 00:00:00 No 300 Twi ce A Day [facility] Levofloxacin (Levaquin) 500 Mg Tablet, 500 Mg Oral Lev ofloxacin (Levaquin) 500 Mg Tablet, 500 Mg Oral 2014-10-30 00:00:00 No 500 D aily [facility] Levothyroxine Sodium 50 Mcg Tablet, 50 Mcg Oral Levoth yroxine Sodium 50 Mcg Tablet, 50 Mcg Oral 2014-10-30 00:00:00 No 50 Ar y [facility] Vital Signs Vital Name Observation Time Observation Value Comments Source Systolic blood pressure 2019-10-06 12:00:00 116 mm[Hg] [facility] Diastolic blood pressure 2019-10-06 12:00:00 62 mm[Hg] [facility] Heart rate 2019-10-06 12:00:00 71 /min [facility] Body temperature 2019-10-06 12:00:00 36.72 [place] [facility] Respiratory rate 2019-10-06 12:00:00 19 /min [facility] Body height 2019-10-06 12:00:00 172.7 cm [facility] Body weight Measured 2019-10-06 12:00:00 98.431 kg [facility] BMI 2019-10-06 12:00:00 32.99 kg/m2 [facility] Oxygen saturation in Arterial blood by Pulse oximetry 10-05 12:00:00 100 /min [facility] Procedures Procedure Date / Time Performed Performing Clinician [facility] e Computed tomography of chest with contrast 2019-06-20 00:00:00 BAKARI BRYANT [facility] Plan of Care Planned Activity Planned Date Details Comments Source Future Scheduled Test 2018-05-11 00:00:00 MEDICARE ANNUAL WE LLNESS (YEAR 2 or FIRST YEAR if no IPPE) [code = MEDICARE ANNUAL WELLNESS (YEAR 2 or FIRST YEAR if no IPPE)] [facility] Encounters Start Date/Time End Date/Time Encounter Type Admission Type Attendi [facility] Care Department Encounter ID Source 2019-06-20 14:17:00 2019-06-21 16:45:00 Discharged Inpatient (obs) 1 DAVID FUNES [facility] [id number] [facility] 2018-11-02 14:55:00 2018-11-02 14:55:00 Registered Emergency Room 1 DONG CUMMINS [facility] [id number] [facility] 2018-02-01 14:56:00 2018-02-01 15:50:00 Departed Emergency Room [facility] [id number] [facility] Results Test Description Test Time Test Comments Results Result Comments Source CT ABDOMEN/PELVIS W 2019-10-18 22:48:00 [place] [address] Patient Name: SAMY NEIL MR #: [id number] : 1945 Age/Sex: 74/M Req #: [id number] Adm Physician: Ordered by: CORINE ANDUJAR MD Report #: [id number] Location: ER Room/Bed: Procedure: [id number] CT/CT ABDOMEN/PELVIS W Exam Date: 10/18/19 Exam Time: 2222 REPORT STATUS: Signed EXAM: CT Abdomen and Pelvis WITH contrast INDICATION: Y abd pain [id number] COMPARISON: Chest CT dated 06/20/2019 TECHNIQUE: Abdomen and pelvis were scanned utilizing a multidetector helical scanner from the lung base to the pubic symphysis after administration of IV contrast. Coronal and sagittal reformations were obtained. Dose modulation, iterative reconstruction, and/or weight based adjustment of the mA/kV was utilized to reduce the radiation dose to as low as reasonably achievable. Routine protocol was performed. Scan was performed when during portal venous phase. IV CONTRAST: 100 mL of Isovue-370 ORAL CONTRAST: None COMPLICATIONS: None RADIATION DOSE: Total DLP: 767.68 mGy*cm Estimated effective dose: (DLP x 0.015 x size factor) mSv CTDIvol has been reviewed. It is below the limits set by the Radiation Protocol Committee (RPC). FINDINGS: LINES and TUBES: TIPS. Right groin central line in place with tip terminating in right external iliac vein. LOWER THORAX: Centrilobular emphysematous changes. Mild vascular congestion. Minimal dependent atelectasis. HEPATOBILIARY: Cirrhotic liver. Stable 0.7 cm left hepatic lobe hypodensity (series 2, image 14). Additional cluster of subcentimeter hypodensities in the left hepatic lobe (series 2, image 17). No biliary ductal dilation. GALLBLADDER: Dependent calcified gallstones. No wall thickening. SPLEEN: Mild splenomegaly. PANCREAS: No focal masses or ductal dilatation. ADRENALS: No adrenal nodules KIDNEYS/URETERS: Kidneys enhance symmetrically. No hydronephrosis. 2 cm left mid to superior pole cyst. Additional bilateral subcentimeter hypodensities are too small to characterize, but are probably cysts as well. Right renal midpole focal scar ring. No stones. GI TRACT: No abnormal distention, wall thickening, or evidence of bowel obstruction. Appendix is normal. Small hiatal hernia. PELVIC ORGANS/BLADDER: Mild bladder wall thickening. Anterior and smaller posterior right bladder wall diverticuli. Mild perivesicular fat stranding. LYMPH NODES: No lymphadenopathy. VESSELS: Dilated portal vein measuring 1.[address]. Mild aortoiliac atherosclerotic disease. PERITONEUM / RETROPERITONEUM: No free air or fluid. BONES: Generalized demineralization. Old right-sided rib fracture deformities. L3 and T12 compression deformities with evidence of arthroplasty. Age indeterminate L1 compression deformity. SOFT TISSUES: Subcutaneous right groin fat stranding, likely related to central line placement. There is also mild fat stranding adjacent to the right femoral veins (series 2, image 88). IMPRESSION: 1. Cirrhotic liver with TIPS in place. 2. Tiny left hepatic lobe hypodensities are too small to characterize. If clinically indicated, nonurgent liver mass protocol MRI can be obtained to further characterize. 3. Cholelithiasis without evidence of cholecystitis. 4. Mild bladder wall thickening and perivesical fat stranding, could represent cystitis in the appropriate clinical context. There are also bladder diverticuli as above. 5. L1 vertebral body compression deformity, new when compared to chest CT dated 06/20/2019. 6. Right groin central line in place with tip terminating in right external iliac vein. There is fat stranding/increased density surrounding the right common femoral vessels, suspicious for a small hematoma, probably postprocedural. Signed by: Dr. Paulina Gilliam MD on 10/18/2019 11:06 PM Dictated By: PAULINA GILLIAM MD 05 Transcribed By: BINA on 10/18/192305 COPY TO: CORINE ANDUJAR MD CHEST SINGLE (PORTABLE) 2019-10-18 19:59:00 [place] [address] Patient Name: SAMY NEIL MR #: [id number] : 1945 Age/Sex: 74/M Req #: [id number] Adm Physician: Ordered by: CORINE ANDUJAR MD Report #: [id number] Location: ER Room/Bed: Procedure: [id number] DX/CHEST SINGLE (PORTABLE) Exam Date: Exam Time: REPORT STATUS: Signed EXAM: CHEST SINGLE (PORTABLE) DATE: 10/18/2019 7:26 PM INDICATION: Left flank pain Y ERMD ORDER Y COMPARISON: Chest x-ray, 06/21/2019 FINDINGS: Lines and tubes: None. Previously noted TIPS stent is not visualized. The cardiac silhouette is slightly enlarged. The aorta is tortuous. Mild patchy airspace opacity in the upper and lower lobes, improved since last exam. No focal opacity seen on the left. No pleural effusion or pneumothorax. Upper abdomen unremarkable. No acute bony abnormality. IMPRESSION: Improvement of right multifocal pneumonia since last exam. Signed by: Dr. Nichole Skaggs M.D. on 10/18/2019 8:02 PM Dictated By: NICHOLE SKAGGS MD 01 Transcribed By: BINA on 10/18/192001 COPY TO: CORINE ANDUJAR MD Blood Culture 2019-06-21 13:49:00 Test Item Blood Culture (test code = 93323367) NO GROWTH AFTER 24 HOURS [facility] SINGLE (PORTABLE)2019-06-21 08:31:00 [place] [address] Patient Name: SAMY NEIL MR #: [id number] : 1945 Age/Sex: 73/M Req #: [id number] Adm Physician: DAVID FUNES MD Ordered by: BAKARI GAMEZ NEGATIVE TURNER APPRENTICE Report #: [id number] Location: MED/SURG3 Room/Bed: [facility] Procedure: [id number] DX/CHEST SINGLE (PORTABLE) Exam Date: 06/21/19 [...] BINA on 06/21/19831 COPY TO: BAKARI GAMEZ NEGATIVE TURNER APPRENTICE Troponin [id number] 08:23:00* Test Item Value Reference Range Interpretation Comments Troponin I (test code = ISX2153) 0.045 0-0.300 [facility] HospitalMagnesium Doyrb5316-55-70 08:06:00* Test Item Value Reference Range Interpretation Comments Magnesium Level (test code = 76915-7) 1.5 1.3-2.1 [facility] Wzlkz2563[facility]01-55 07:46:00* Test Item Value Reference Range Interpretation Comments Sodium Level (test code = 2951-2) 131 136-145 L [facility] HospitalPotassium Uaioe6516-76-02 07:46:00* Test Item Value Reference Range Interpretation Comments Potassium Level (test code = 2823-3) 4.5 3.5-5.1 [facility] HospitalChloride Ajxbb1072-43-78 07:46:00* Test Item Value Reference Range Interpretation Comments Chloride Level (test code = 2075-0) 103 98-107 [facility] HospitalCarbon Dioxide Cyjpv0758-68-06 07:46:00* Test Item Value Reference Range Interpretation Comments Carbon Dioxide Level (test code = 2028-9) 18 22-29 L [facility] HospitalAnion Nte4567-57-47 07:46:00* Test Item Value Reference Range Interpretation Comments Anion Gap (test code = 30998-8) 14.5 8-16 [facility] HospitalBlood Urea Yznlutqc8044-08-99 07:46:00* Test Item Value Reference Range Interpretation Comments Blood Urea Nitrogen (test code = 3094-0) 13 7-26 [facility] HospitalCreatinine2020-02-12 07:46:00* Test Item Value Reference Range Interpretation Comments Creatinine (test code = 2160-0) 0.96 0.72-1.25 [facility] HospitalBUN/Creatinine Csvkf7060-87-12 07:46:00* Test Item Value Reference Range Interpretation Comments BUN/Creatinine Ratio (test code = 3097-3) 14 6-25 [facility] HospitalEstimat Glomerular Filtration Rate 2019-06-21 07:46:00* Test Item Value Reference Range Interpretation Comments Estimat Glomerular Filtration Rate (test code = 640228757) > 60 >60 Ranges were taken from the National Kidney Disease Education Program and the [facility] Kidney Foundation literature.Reference ranges:60 or greater: Cdehun22-20 ( for 3 consecutive months): Chronic kidney disease 15 or less: Kidney failureHouston Methodist The Woodlands HospitalGlucose Kpcvp9668-44-15 07:46:00* Test Item Value Reference Range Interpretation Comments Glucose Level (test code = FDA0250) 178 74-118 H [facility] HospitalCalcium Aasdw3861-94-15 07:46:00* Test Item Value Reference Range Interpretation Comments Calcium Level (test code = 37521-4) 8.0 8.4-10.2 L [facility] HospitalTotal Jknpeofip0927-23-30 07:46:00* Test Item Value Reference Range Interpretation Comments Total Bilirubin (test code = 1975-2) 1.4 0.2-1.2 H [facility] HospitalAspartate Amino Transf (AST/SGOT) 2019-06-21 07:46:00* Test Item Value Reference Range Interpretation Comments Aspartate Amino Transf (AST/SGOT) (test code = Aspartate Amino Transf (AST/SGOT)) 29 5-34 [facility] HospitalAlanine Aminotransferase (ALT/SGPT) 2019-06-21 07:46:00* Test Item Value Reference Range Interpretation Comments Alanine Aminotransferase (ALT/SGPT) (test code = 1742-6) 28 0-55 [facility] HospitalTotal Abgbhdw9034-37-36 07:46:00* Test Item Value Reference Range Interpretation Comments Total Protein (test code = 2885-2) 6.9 6.5-8.1 [facility] HospitalAlbumin2020-02-12 07:46:00* Test Item Value Reference Range Interpretation Comments Albumin (test code = 1751-7) 2.7 3.5-5.0 L [facility] HospitalGlobulin2020-02-12 07:46:00* Test Item Value Reference Range Interpretation Comments Globulin (test code = 47595-4) 4.2 2.3-3.5 H [facility] HospitalAlbumin/Globulin Zpakj9550-04-29 07:46:00 * Test Item Value Reference Range Interpretation Comments Albumin/Globulin Ratio (test code = 1759-0) 0.6 0.8-2.0 L [facility] HospitalAlkaline Wjowflsrguy2899-64-63 07:46:00* Test Item Value Reference Range Interpretation Comments Alkaline Phosphatase (test code = 6768-6) 120 40-150 [facility] HospitalWhite Blood Mludb2934-75-11 07:42:00* Test Item Value Reference Range Interpretation Comments White Blood Count (test code = 6690-2) 7.89 4.8-10.8 [facility] HospitalRed Blood Kbdng7897-62-90 07:42:00* Test Item Value Reference Range Interpretation Comments Red Blood Count (test code = 789-8) 3.75 4.3-5.7 L [facility] HospitalHemoglobin2020-02-12 07:42:00* Test Item Value Reference Range Interpretation Comments Hemoglobin (test code = 17195-2) 13.7 14.0-18.0 L [facility] HospitalHematocrit2020-02-12 07:42:00* Test Item Value Reference Range Interpretation Comments Hematocrit (test code = 4544-3) 38.9 38.2-49.6 [facility] HospitalMean Corpuscular Akhaji1645-53-88 07:42:00* Test Item Value Reference Range Interpretation Comments Mean Corpuscular Volume (test code = 787-2) 103.7 81-99 H [facility] HospitalMean Corpuscular Xakdgcuxrg9643-54-25 07:42:00* Test Item Value Reference Range Interpretation Comments Mean Corpuscular Hemoglobin (test code = 785-6) 36.5 28-32 H [facility] HospitalMean Corpuscular Hemoglobin Concent 2019-06-21 07:42:00* Test Item Value Reference Range Interpretation Comments Mean Corpuscular Hemoglobin Concent (test code = 786-4) 35.2 31-35 H [facility] HospitalRed Cell Distribution Wlqjd7769-43-80 07:42:00* Test Item Value Reference Range Interpretation Comments Red Cell Distribution Width (test code = 05220-7) 14.2 11.7 -14.4 [facility] HospitalPlatelet Nxrjt4664-44-37 07:42:00* Test Item Value Reference Range Interpretation Comments Platelet Count (test code = 777-3) 92 140-360 L [facility] HospitalNeutrophils (%) (Auto)2019-06-21 07:42:00 * Test Item Value Reference Range Interpretation Comments Neutrophils (%) (Auto) (test code = 01218-4) 73.6 38.7-80.0 [facility] HospitalLymphocytes (%) (Auto)2019-06-21 07:42:00 * Test Item Value Reference Range Interpretation Comments Lymphocytes (%) (Auto) (test code = 736-9) 20.0 18.0-39.1 [facility] HospitalMonocytes (%) (Auto)2019-06-21 07:42:00* Test Item Value Reference Range Interpretation Comments Monocytes (%) (Auto) (test code = 5905-5) 4.7 4.4-11.3 [facility] HospitalEosinophils (%) (Auto)2019-06-21 07:42:00 * Test Item Value Reference Range Interpretation Comments Eosinophils (%) (Auto) (test code = 713-8) 1.6 0.0-6.0 [facility] HospitalBasophils (%) (Auto)2019-06-21 07:42:00* Test Item Value Reference Range Interpretation Comments Basophils (%) (Auto) (test code = 706-2) 0.0 0.0-1.0 [facility] HospitalIM GRANULOCYTES %2019-06-21 07:42:00* Test Item Value Reference Range Interpretation Comments IM GRANULOCYTES % (test code = IM GRANULOCYTES %) 0.1 0.0- 1.0 [facility] HospitalNeutrophils # (Auto)2019-06-21 07:42:00* Test Item Value Reference Range Interpretation Comments Neutrophils # (Auto) (test code = 751-8) 5.8 2.1-6.9 [facility] HospitalLymphocytes # (Auto)2019-06-21 07:42:00* Test Item Value Reference Range Interpretation Comments Lymphocytes # (Auto) (test code = 47487-2) 1.6 1.0-3.2 [facility] HospitalMonocytes # (Auto)2019-06-21 07:42:00* Test Item Value Reference Range Interpretation Comments Monocytes # (Auto) (test code = 742-7) 0.4 0.2-0.8 [facility] HospitalEosinophils # (Auto)2019-06-21 07:42:00* Test Item Value Reference Range Interpretation Comments Eosinophils # (Auto) (test code = 711-2) 0.1 0.0-0.4 [facility] HospitalBasophils # (Auto)2019-06-21 07:42:00* Test Item Value Reference Range Interpretation Comments Basophils # (Auto) (test code = 704-7) 0.0 0.0-0.1 [facility] HospitalAbsolute Immature Granulocyte (auto 2019-06-21 07:42:00* Test Item Value Reference Range Interpretation Comments Absolute Immature Granulocyte (auto (jair t code = Absolute Immature Granulocyte (auto) 0.01 0-0.1 [facility] HospitalDifferential Total Cells Counted 2019-06-20 20:24:00* Test Item Value Reference Range Interpretation Comments Differential Total Cells Counted (test code = Differen tial Total Cells Counted) 100 [facility] HospitalNeutrophils % (Manual)2019-06-20 20:24:00 * Test Item Value Reference Range Interpretation Comments Neutrophils % (Manual) (test code = 68671-7) 33 40-74 L [facility] HospitalLymphocytes % (Manual)2019-06-20 20:24:00 * Test Item Value Reference Range Interpretation Comments Lymphocytes % (Manual) (test code = 737-7) 49 19-48 H [facility] HospitalMonocytes % (Manual)2019-06-20 20:24:00* Test Item Value Reference Range Interpretation Comments Monocytes % (Manual) (test code = 744-3) 7 3.4-9.0 [facility] HospitalReactive Claxlpbwsjb7866-35-06 20:24:00* Test Item Value Reference Range Interpretation Comments Reactive Lymphocytes (test code = 76182-3) 11 [facility] HospitalPlatelet Andtsrsf7148-68-43 20:24:00* Test Item Value Reference Range Interpretation Comments Platelet Estimate (test code = 65105-2) SLIGHTLY DECREASED [facility] HospitalPlatelet Morphology [id number] 20:24:00* Test Item Value Reference Range Interpretation Comments Platelet Morphology Comment (test code = 16905-4) NORMAL [facility] HospitalRed Cell Morphology Rprwzlm1253-52-97 20:24:00* Test Item Value Reference Range Interpretation Comments Red Cell Morphology Comment (test code = 6742-1) NORMAL [facility] HospitalCT CHEST [id number] 15:27:00 [place] [address] Patient Name: SAMY NEIL MR #: [id number] : 1945 Age/Sex: 73/M Req #: [id number] Adm Physician: DAVID FUNES MD Ordered by: BAKARI GAMEZ NP Report #: [id number] Location: [facility] Room/Bed: [place] [address] Procedure: 0211-[address]/CT CHEST W Exam [...] on 06/20/2019 3:36 PM Dictated By: GUMARO ZHANG MD [facility] Signed By: GUMARO ZHANG MD on 06/20/19 153 Transcribed By: BINA on 06/20/19 1536 COPY TO: BAKARI GAMEZ NP Urine [id number] 14:38:00* Test Item Value Reference Range Interpretation Comments Urine WBC (test code = 5821-4) 6-10 0-5 H [facility] HospitalUrine [id number] 14:38:00* Test Item Value Reference Range Interpretation Comments Urine RBC (test code = 56339-4) NONE 0-5 [facility] HospitalUrine Rwcymvih2908-88-25 14:38:00* Test Item Value Reference Range Interpretation Comments Urine Bacteria (test code = 26626-2) MODERATE NONE H [facility] HospitalUrine Epithelial Zssma6234-03-10 14:38:00 * Test Item Value Reference Range Interpretation Comments Urine Epithelial Cells (test code = 52529-2) FEW NONE [facility] HospitalUrine Afgmn1829-79-49 14:27:00* Test Item Value Reference Range Interpretation Comments Urine Color (test code = 5778-6) YELLOW YELLOW [facility] HospitalUrine Wzetqjw7492-70-25 14:27:00* Test Item Value Reference Range Interpretation Comments Urine Clarity (test code = 78559-1) CLEAR CLEAR [facility] HospitalUrine Specific Fwrtmsp9510-71-44 14:27:00 * Test Item Value Reference Range Interpretation Comments Urine Specific [place] (test code = 5811-5) 1.025 1.010-1.02 5 [facility] HospitalUrine [id number] 14:27:00* Test Item Value Reference Range Interpretation Comments Urine pH (test code = 17572-4) 7 5-7 [facility] Leukocyte Awtzrpcv1664-57-64 14:27:00* Test Item Value Reference Range Interpretation Comments Urine Leukocyte Esterase (test code = 5799-2) NEGATIVE NEGATIVE [facility] HospitalUrine Nydhnbi5786-11-09 14:27:00* Test Item Value Reference Range Interpretation Comments Urine Nitrite (test code = 20766-5) NEGATIVE NEGATIVE [facility] HospitalUrine Rqtlzux0582-04-79 14:27:00* Test Item Value Reference Range Interpretation Comments Urine Protein (test code = 5804-0) NEGATIVE NEGATIVE [facility] HospitalUrine Glucose (UA)2019-06-20 14:27:00* Test Item Value Reference Range Interpretation Comments Urine Glucose (UA) (test code = 2349-9) NEGATIVE NEGATIVE [facility] HospitalUrine Jvnwyvv5829-70-48 14:27:00* Test Item Value Reference Range Interpretation Comments Urine Ketones (test code = 32473-9) NEGATIVE NEGATIVE [facility] HospitalUrine Fbbtfhzelflw8719-65-68 14:27:00* Test Item Value Reference Range Interpretation Comments Urine Urobilinogen (test code = 42807-7) 0.2 0.2-1 [facility] HospitalUrine Supssttbu9766-97-58 14:27:00* Test Item Value Reference Range Interpretation Comments Urine Bilirubin (test code = 1978-6) NEGATIVE NEGATIVE [facility] HospitalUrine Xdjdw7497-81-55 14:27:00* Test Item Value Reference Range Interpretation Comments Urine Blood (test code = 57079-5) NEGATIVE NEGATIVE [facility] HospitalProthrombin Qest9903-39-11 14:13:00* Test Item Value Reference Range Interpretation Comments Prothrombin Time (test code = 5902-2) 16.9 11.9-14.5 H [facility] HospitalProthromb Time International Ratio 2019-06-20 14:13:00* Test Item Value Reference Range Interpretation Comments Prothromb Time International Ratio (test code = 6301-6) 1.29 Oral Anticoagulant Therapy INR Values:1. Low Intensity Therapy 1.5 - 2.02 . Moderate Intensity Therapy 2.0 - 3.03. High Intensity Therapy(1) 2.5 - 3. 54. High Intensity Therapy(2) 3.0 - 4.05. Panic Value INR > 5.0 [facility] HospitalActivated Partial Thromboplast Time 2019-06-20 14:13:00* Test Item Value Reference Range Interpretation Comments Activated Partial Thromboplast Time (test code = 58018-7) 38.8 23.8-35.5 H [facility] HospitalB-Type Natriuretic Wpujqkf9675-16-16 14:11:00* Test Item Value Reference Range Interpretation Comments B-Type Natriuretic Peptide (test code = 22034-4) 93.3 0-100 [facility] HospitalCreatine Kinase [id number] 14:11:00* Test Item Value Reference Range Interpretation Comments Creatine Kinase MB (test code = 22956-7) 8.20 0-5.0 H [facility] HospitalCreatine Eucdtt9898-82-73 13:56:00* Test Item Value Reference Range Interpretation Comments Creatine Kinase (test code = 2157-6) 71 30-200 [facility] HospitalInfluenza Virus Types A,B Antigen 2019-06-20 13:49:00* Test Item Value Reference Range Interpretation Comments Influenza Virus Types A,B Antigen (test code = 68893-7) NEGATIVE NEGATIVE [facility] HospitalGroup A Streptococcus Dzeoba2416-96-19 13:47:00* Test Item Value Reference Range Interpretation Comments Group A Streptococcus Screen (test code = 78378-2) NEGATIVE NEG ATIVE [facility] HospitalCHEST SINGLE (PORTABLE)2019-06-20 13:41:00 [facility] [address] [place] [address] Patient Name: SAMY NEIL MR #: [id number] : 1945 Age/Sex: 73/M Req #: [id number] Adm Physician: Ordered by: CORINE ANDUJAR MD Report #: [id number] Location: ER Room/Bed: Procedure: 8309-2479 DX/CHEST SINGLE (PORTABLE) Exam Date: 06/20/19 Exam [...] COPY TO: CORINE ANDUJAR MD Lactic Acid Gczwb3196-37-22 20:45:00* Test Item Value Reference Range Interpretation Comments Lactic Acid Level (test code = Lactic Acid Level) 21.0 4.5- 19.8 Results repeated and called to JONATHAN DUNN at 2043 on 11/02/18 by VIKAS HERRMANN. Read back and verified.[facility] HospitalLOWER LEG SIWCX8592-77-39 16:17:00 [place] [address] Patient Name: SAMY NEIL MR #: [id number] : 1945 Age/Sex: 73/M Req #: [id number] Adm Physician: Ordered by: OCHOA MORE NEGATIVE TURNER APPRENTICE Report #: [id number] Location: ER Room/Bed: Procedure: 51 DX/LOWER LEG RIGHT Exam Date: 11/02/18 [...] tronically Signed By: ADDISON YEPEZ MD on 11/02/18 161 Transcribed By: BINA on 11/02/181617 COPY TO: OCHOA MORE NP TISSUE EXAM 2018-07-26 09:47:00Surgical Pathology Report Case: [id number] Authorizing Provider: Janeth Skaggs MD Collected: 07/20/2018 1658 Ordering Location: [address] Received: 07/20/2018 1744 Cardiovascular Pathologist: Wilbur Najera MD Specimen: Lung, Right Upper Lobe A. LUNG, RIGHT UPPER LOBE, CT GUIDED NEEDLE CORE BIOPSY: - ACUTE BRONCHOPNEUMONIA AND ABSCESS FORMATION (SEE COMMENT) - SUSPICIOUS FOR FUNGAL INFECTION - NEGATIVE FOR MALIGNANCY Signing Pathologist Direct Phone Line: [phone] signed by Wilbur Najera MD on 07/26/2018 [...] micro-organisms. Correlation with cultures and serology is recommended.[id number] given Right upper lobe lung biopsy The [...] stains. Immunohistochemistry technical testing was performed at [facility], Pathology Laboratory where it was developed [...] high complexity clinical laboratory testing.RAD, CHEST, 2 [id number] 13:21:00Reason for exam:->SOB FINAL REPORT INDICATION: SOB COMPARISON: July 22, 2018 T ECHNIQUE: Frontal and lateral views of the chest. IMPRESSION:Lungs and pleura: D ecreasing conspicuity of patchy airspace disease bilaterally. No effusion.Heart and mediastinum: Normal heart size. Unremarkable mediastinal contours.Osseous st ructures: No acute abnormality.Additional findings: Stable TIPS. Unchanged right PICC. Signed: JR King Robert MDReport Verified Date/Time: 07/23/2018 13:21:07 Reading Location: [facility] C013V Neuro Reading Room Electronically si gned by: MANUEL KING on 07/23/2018 01:21 PM RAD, CHEST, 1 VIEW, NON [id number] 23:28:00Reason for exam:->pneumothoraxShould this be performed at [...] pneumonia. No pneumothorax seen. Signed: Joyce Hall MDReport Verified Date/Time: 07/22/2018 23:28:09 Reading Location: [facility] C013W Consult Reading Room , BRAIN, WITHOUT [id number] 20:46:00FINAL REPORT CT, BRAIN, WITHOUT CONTRAST CLINICAL [...] recommended for further characterization. Signed: Anita Baxter MDRfatmata Verified Date/Time: 07/22/2018 20:46:26 Reading Location: [facility] Radiology Reading Room -GLUCOSE [id number] 13:02:00* Test Item Value Reference Range Interpretation Comments POC-GLUCOSE METER (BEAKER) (test code = 1538) 106 mg/dL 70-[address] [facility] [address] [address] RAD, CHEST, 1 VIEW, NON [id number] 11:37:00Reason for exam:->pneumothorax FINAL REPORT CLINICAL HISTORY: [...] ort Verified Date/Time: 07/22/2018 11:37:56 Reading Location: [facility] iology Reading Room Electronically signed by: MAURICE SAM M.D. on 07/22 11:37 AM POCT-GLUCOSE [id number] 08:36:00* Test Item Value Reference Range Interpretation Comments POC-GLUCOSE METER (BEAKER) (test code = 1538) 92 mg/dL 70-[address] [facility] [address] [address] BASIC METABOLIC [id number] 04:59:00* Test Item Value Reference Range Interpretation [...] Specimen slightly ictericCBC W/PLT COUNT & AUTO [id number] 04:34:00 * Test Item Value Reference Range [...] % 0-1 RAD, CHEST, 1 VIEW, NON [id number] 22:06:00Reason for exam:->pneumothorax FINAL REPORT Portable chest. [...] and continuing pulmona ry opacities. Signed: Joyce Halleport Verified Date/Time: 07/21/2018 2 2:06:20 Reading Location: [address] Consult Reading Room -GLUCOSE METER 2018-07-21 17:08:00* Test Item Value Reference Range Interpretation Comments POC-GLUCOSE METER (BEAKER) (test code = 1538) 121 mg/dL 70-110 H TESTED AT [address] [address] CBC W/PLT COUNT & AUTO [id number] 15:00:00* Test Item Value Reference Range Interpretation [...] 313) Present HYPERSEGMENTATION (CELLAVISION)(BEAKER) (test code = 2615) Present ANISOCYTOSIS (BEAKER) (test code = 961) 3+ many MACROCYTES (BEAKER) (test code = 964) 3+ many POIKILOCYTES (BEAKER) (test code = 966) 1+ few OVALOCYTES (BEAKER) (test code = 477) 1+ few ARTIFACT (CELLAVISION)(BEAKER) (test code = 3432) Present PLATELET CONCENTRATION (CELLAVISION)(BEAKER) (test code = 3438) Jennifer quate Received comment: User comments: Slide comments: BASIC METABOLIC [id number] 14:59:00* Test Item Value Reference Range Interpretation [...] Specimen slightly ictericRAD, CHEST, 1 VIEW, NON [id number] 13:00:00Reason for exam:->PICC LINE PLACEMENTShould this be [...] MDReport Verified Date/Time: 07/21/2018 13:00:04 Reading Location: [address] Consult Reading Room -GLUCOSE [id number] 12:08:00* Test Item Value Reference Range Interpretation Comments POC-GLUCOSE METER (ROMEL) (test code = 1538) 137 mg/dL 70-[address] [facility] [address] [address] [address], DRAINAGE, CHEST TUBE [id number] 00:43:00Reason for exam:-> Increasing pneumothoraxFINAL REPORT PROCEDURE: [...] cavity, and after dilation with an 8 Barbadian dilator, an 8 Barbadian catheter was inserted into the pleural cavity. [...] MDReport Verified Date/Time: 07/21/2018 00:43:30 Reading Location: [address] Consult Reading Room , CHEST, 1 VIEW, NON [id number] 00:43:00Reason for exam:->Pain after chest tube placementShould [...] cavity, and after dilation with an 8 Barbadian dilator, an 8 Barbadian catheter was inserted into the pleural cavity. [...] Bee Verified Date/Time: 07/21/2018 00:43:30 Reading Location: [facility] C013 Consult Reading Room , CHEST, PA OR AP, 1 [id number] 19:55:00Reason for exam:->Post Lung BiopsyShould this be [...] Bee Verified Date/Time: 07/20/2018 19:55:59 Reading Location: [facility] C013 Consult Reading Room , BIOPSY, [id number] 18:11:00Reason for exam:->RUL noduleFINAL REPORT CT-guided core biopsy dated 07/20/2018 Name of practitioner performing procedure:Nick Gonsales M.D. Names of facilities maintenance assistant:None Procedure: Core biopsy of the right [...] right upper lobe mass. Signed: Nick Gonsales MDReport Verified Date/Time: 07/20/2018 18:11:12 Reading Location: [address] Body Reading Room , CHEST, [...] Bee Verified Date/Time: 07/20/2018 18:00:14 Reading Location: [address] Consult Reading Room IC ACID, [id number] 13:49:00* Test Item Value Reference Range Interpretation Comments LACTATE BLOOD VENOUS (2) (BEAKER) (test code = 2872) 1.4 mmol/L 0 .5-2.2 Specimen slightly hemolyzed Specimen slightly [id number] 13:46:00* Test Item Value Reference Range Interpretation Comments AMMONIA (BEAKER) (test code = 348) 89 mol/L 18-72 H POCT-GLUCOSE [id number] 13:23:00* Test Item Value Reference Range Interpretation Comments POC-GLUCOSE METER (BEAKER) (test code = 1538) 94 mg/dL 70-110 TESTED AT [place] [address] RAD, CHEST, 1 VIEW, NON [id number] 13:04:00Reason for exam:->shortness of breathShould this be performed at the bedside?->YesFINAL REPORT CLINICAL HISTORY: shortness of breath TECHNIQUE: 1 view of the chest. COMPARISON: 07/17/2018 IMPRESSION: The right upper lobe mass is unchanged. There are no new infiltrates or effusions. The cardiomediastinal silhouette is magnified by technique. Signed: Maurice Sam Verified Date/Time: 07/20/2018 13:04:26 Reading Location: [address] Consult Reading Room - GLUCOSE [id number] 10:33:00* Test Item Value Reference Range Interpretation Comments POC-GLUCOSE METER (BEAKER) (test code = 1538) 118 mg/dL 70-110 H TESTED AT [address] [address] CBC W/PLT COUNT & AUTO [id number] 07:41:00* Test Item Value Reference Range Interpretation [...] comment: User comments: Slide comments: BASIC METABOLIC [id number] 05:07:00* Test Item Value Reference Range Interpretation [...] APPLICABLE FOR DIALYSIS PATIENTS. Specimen slightly ictericHEMOGLOBIN [id number] 13:26:00* Test Item Value Reference Range Interpretation Comments HEMOGLOBIN A1C (BEAKER) (test code = 368) 5.0 % 4.3-6.1 CBC W/PLT COUNT & AUTO [id number] 09:32:00* Test Item Value Reference Range Interpretation [...] (test code = 772) 0.49 uIU/mL 0.35-4.94 [id number] 05:00:00* Test Item Value Reference Range Interpretation Comments MAGNESIUM (BEAKER) (test code = 627) 2.1 mg/dL 1.6-2.6 BASIC METABOLIC [id number] 05:00:00* Test Item Value Reference Range Interpretation [...] NOT APPLICABLE FOR DIALYSIS PATIENTS. HEPATIC FUNCTION [id number] 05:00:00* Test Item Value Reference Range Interpretation [...] code = 700) 214 pg/mL 0-100 H PT/[id number] 04:35:00* Test Item Value Reference Range Interpretation [...] ients with mechanical heart valves.CT, CHEST, WITHOUT [id number] 10:36:00FINAL REPORT INDICATION: Shortness of breath, suspect [...] indicating pulmonary artery hypertension. Signed: Luba Cardona MDRort Verified Date/Time: 07/17/2018 10:36:26 Reading Location: [address] Consult Reading Room [facility] signed by: LUBA CARDONA M.D. on 07/17/2018 10:36 AM TROPONIN [id number] 04:27:00* Test Item Value Reference Range Interpretation Comments TROPONIN I (BEAKER) (test code = 397) < ng/mL 0.00-0.03 [...] 0-100 H CBC W/PLT COUNT & AUTO [id number] 04:24:00* Test Item Value Reference Range Interpretation [...] = 2801) 1 % 0-1 HEPATIC FUNCTION [id number] 04:21:00* Test Item Value Reference Range Interpretation [...] = 347) 31 U/L 6-55 BASIC METABOLIC [id number] 04:21:00* Test Item Value Reference Range Interpretation [...] GFR IS NOT APPLICABLE FOR DIALYSIS PATIENTS. PT/[id number] 04:18:00* Test Item Value Reference Range Interpretation [...] heart valves.RAD, CHEST, PA OR AP, 1 [id number] 03:40:00Reason for exam:->chest painShould this be performed [...] vascular congestion.No focal pulmonary consolidation. Signed: Jose Almonteeport Verified Date/Time: 07/17/2018 03:40:53 Reading Location: [address] Body Reading Room E, VERTEBROPLASTY THORACIC, [id number] 15:41:00Reason for Exam:->T12 and L3 compression fracturesFINAL [...] as (Ka,r): 1933 mGy Signed: Anson Chowdhury Verified Date/Time: 05/31/2018 15:41:50 Reading Location: [place] [id number] Angio Body Reading Room Electronically signed by: ANSON CHOWDHURY M.D. on 019 03:41 PM CBC W/PLT COUNT & AUTO [id number] 14:13:00* Test Item Value Reference Range Interpretation [...] code = 2801) 1 % 0-1 PROTHROMBIN TIME/[id number] 13:56:00* Test Item Value Reference Range Interpretation Comments PROTIME (BEAKER) (test code = 759) 18.6 seconds 11.7-14.7 H INR (BEAKER) (test code = 370) 1.6 <=5.9 RECOMMENDED COUMADIN/WARFARIN INR THERAPY RANGESSTANDARD DOSE: 2.0 - 3.0 Inclu jorge: PROPHYLAXIS for venous thrombosis, systemic embolization; TREATMENT for neil ous thrombosis and/or pulmonary embolus.HIGH RISK: Target INR is 2.5-3.5 for pat ients with mechanical heart valves.[id number] 13:56:00* Test Item Value Reference Range Interpretation Comments PARTIAL THROMBOPLASTIN TIME (BEAKER) (test code = 760) 34.0 seconds 22.5-36.0 BASIC METABOLIC [id number] 13:55:00* Test Item Value Reference Range Interpretation [...] APPLICABLE FOR DIALYSIS PATIENTS. Specimen slightly ictericBLOOD [id number] 06:00:00* Test Item Value Reference Range Interpretation Comments CULTURE (BEAKER) (test code = 1095) No growth in 5 days BLOOD [id number] 06:00:00* Test Item Value Reference Range Interpretation Comments CULTURE (BEAKER) (test code = 1095) No growth in 5 days BASIC METABOLIC [id number] 07:09:00* Test Item Value Reference Range Interpretation [...] Specimen slightly ictericCBC W/PLT COUNT & AUTO [id number] 06:41:00 * Test Item Value Reference Range [...] = 2801) 0 % 0-1 BASIC METABOLIC [id number] 18:42:00* Test Item Value Reference Range Interpretation [...] DIALYSIS PATIENTS. CBC W/PLT COUNT & AUTO [id number] 18:29:00* Test Item Value Reference Range Interpretation [...] = 2801) 0 % 0-1 BASIC METABOLIC [id number] 05:47:00* Test Item Value Reference Range Interpretation [...] DIALYSIS PATIENTS. CBC W/PLT COUNT & AUTO [id number] 05:30:00* Test Item Value Reference Range Interpretation [...] = 2801) 0 % 0-1 BASIC METABOLIC [id number] 12:04:00* Test Item Value Reference Range Interpretation [...] Specimen slightly ictericCBC W/PLT COUNT & AUTO [id number] 11:52:00 * Test Item Value Reference Range [...] = 2801) 0 % 0-1 BASIC METABOLIC [id number] 22:30:00* Test Item Value Reference Range Interpretation [...] FOR DIALYSIS PATIENTS. Specimen slightly ictericHEPATIC FUNCTION [id number] 22:30:00* Test Item Value Reference Range Interpretation [...] = 347) 14 U/L 6-55 Specimen slightly qxnencmCCWUDY2682-48-46 22:30:00* Test Item Value Reference Range Interpretation Comments LIPASE (BEAKER) (test code = 749) 21 U/L 8-78 Specimen slightly ictericCBC W/PLT COUNT & AUTO [id number] 22:12:00 * Test Item Value Reference Range [...] 1 % 0-1 CT, SPINE, LUMBAR, WO [id number] 21:09:00Reason for exam:->BACK PAINworsening over the last [...] MDReport Verified Date/Time: 02/01/2018 21:09:21 Reading Location: [facility] C013Y CT Body Reading Room , SPINE, [...] MDReport Verified Date/Time: 02/01/2018 20:56:47 Reading Location: [address] Reading Room , SPINE, THORACIC, WO [id number] 20:51:00Reason for exam:->BACK PAINworsening over the last [...] lobe pneumonia versus aspiration pneumonitis. Signed: Felix Haji V erified Date/Time: 02/01/2018 20:51:05 Reading Location: [facility] Reading Room
--- OUTSIDE RECORDS SUMMARY | 2019-10-18 23:49 | XMS REPORT | Clinical Summary ---
Author Author [facility] [employer] Organization [facility] Address Unknown Phone Unavailable Care Team Providers Care Motor Adjuster Name Role Phone Ovidio Perez MD PCP [...] ot Implanted Type Area Manufactur er 02/06/2021 [id number] / / [id number] Implant Clgn Soft-Tissue Renfrcmnt Human Left: Eye STRYKERCRA 2x5cm 1mm Enduragen - [id number] Tissue NIOMAX ILLO Implanted: Qty: 1 on 06/11/2017 by Implants Ivan Bee MD at [facility] OPC [id number] / / Screw - [id number] IPM Left: Eye АЛЕКСАНДР Implanted: Qty: 2 on 10/16/2016 by IMPLANT ORT HOPEDIC Ivan Burgess MD at [facility] DEVICES S OPC Description:SELF DRILLING SCREW [id number] QTY 2; NO EXPIRATION DATE AVAILABLE. [id number] / / 1.2x4mm Self Drilng Upperface - IPM Left: Eye АЛЕКСАНДР [id number] IMPLANT CRANIOMAXI Implanted: Qty: 2 on 10/16/2016 by DEVICES LLO FACIAL Ivan Burgess MD at [facility] OPC 11/16/2020 [id number] / / [id number] Implant Rim Orbtl Medpor Extnd Lt Ophthalmic Left: Eye STRYKERCRA 47mm 40mm - [id number] Implants NIOMAXILLO Implanted: Qty: 1 on 10/16/2016 by Ivan Dasilva MD at [facility] OPC 02/06/2025 [id number] / / [id number] Implant Cranifcl Medpor Titan Surgical Left: Eye STRYKERCRA Barrier 73r41b5.6mm Pe - [id number] Implants; NIO MAXILLO Implanted: Qty: 1 on 10/16/2016 by Expanders; FAC Ivan Spencer MD at [facility] Extenders; OPC Surgical Wires Results Not on fileafter 10/17/2018 Insurance Type Payer Benefit Subscriber ID Effective Phone Address Plan / Dates Group [facility] xxxxxxxxxxx 2016- P [facility] For more information, please contact: [phone] Patient Cafeteria Aide Explanation Type Date Recorded Advance Directives, Living Will and Medical Power of Finishing Machine Operator Automatic
[2019-10-19] VITALS (9 sets, daily range): BP systolic 104–143; BP diastolic 64–89
[2019-10-19 05:26] LABS: BASOPHILS % 0.4 % (0.0-1.0); EOSINOPHILS # (AUTO) 0.2 (0.0-0.4); EOSINOPHILS % 2.1 % (0.0-6.0); HEMATOCRIT 39.5 % (38.2-49.6); LYMPHOCYTES # (AUTO) 2.8 (1.0-3.2); LYMPHOCYTES % 38.4 % (18.0-39.1); MEAN CORPUSCULAR HEMOGLOBIN 35.2 pg (28-32); MEAN CORPUSCULAR HGB CONC 32.9 g/dL (31-35); MONOCYTES # (AUTO) 0.9 (0.2-0.8); MONOCYTES % 12.4 % (4.4-11.3); NEUTROPHILS # (AUTO) 3.4 (2.1-6.9); NEUTROPHILS % 46.4 % (38.7-80.0); PLATELET COUNT 153 x10e3/uL (140-360); RED BLOOD COUNT 3.69 x10e6/uL (4.3-5.7); RED CELL DISTRIBUTION WIDTH 14.3 % (11.7-14.4)
[2019-10-19 06:07] LABS: CREATINE KINASE MB 1.2 ng/mL (0-5.0)
[2019-10-19 08:01] LABS: ALANINE AMINOTRANSFERASE 17 IU/L (0-55); ALBUMIN 2.8 g/dL (3.5-5.0); ALBUMIN/GLOBULIN RATIO 0.8 (0.8-2.0); ALKALINE PHOSPHATASE 127 IU/L (40-150); ANION GAP 13.6 mmol/L (8-16); BLOOD UREA NITROGEN 9 mg/dL (7-26); BUN/CREATININE RATIO 10 (6-25); CALCIUM 8.2 mg/dL (8.4-10.2); CARBON DIOXIDE 22 mmol/L (22-29); CHLORIDE 104 mmol/L (98-107); CREATININE, SERUM 0.94 mg/dL (0.72-1.25); EST GLOMERULAR FILTRATION RATE > 60 ML/MIN (60-); GLUCOSE 89 mg/dL (74-118); POTASSIUM 3.6 mmol/L (3.5-5.1); SODIUM 136 mmol/L (136-145)
[2019-10-19 09:19] LABS: PLATELET ESTIMATE ADEQUATE; PLATELET MORPHOLOGY COMMENT NORMAL; RBC MORPHOLOGY COMMENT NORMAL
[2019-10-19] MEDS ORDERED: SODIUM CHLORIDE 0.9% 250ML 250 ML ONE (10:43)
[2019-10-19] MEDS: CEFTRIAXONE SOD 1 GM/NS 50 ML 50 ML IV SCH ×2 (11:00→23:44)
[2019-10-19] MEDS ORDERED: LORAZEPAM 0.5 MG TAB PO ONE (14:30)
[2019-10-19] MEDS ORDERED: ALBUTEROL SULF 0.083% NEB SOLN 3 ML NEB INH PRN (14:45)
[2019-10-19] MEDS ORDERED: LACTULOSE SYRUP 20 GM/30 ML UDC PO PRN (15:30)
[2019-10-19] MEDS: CHLORDIAZEPOXIDE HCL 25 MG CAP PO SCH ×2 (16:34→23:44)
[2019-10-19] MEDS: FUROSEMIDE 40 MG TAB PO SCH (16:34)
[2019-10-19] MEDS: PANTOPRAZOLE SOD 40 MG TABEC PO SCH (16:34)
[2019-10-19 17:14] LABS: CREATINE KINASE MB 1.5 ng/mL (0-5.0)
--- NOTE | 2019-10-19 17:15 | NUR ---
PER NURSE MIKE RN KYPHOPLASTY CAN BE DONE OP ACCORDING TO CODING TECHNICIAN FOR DR SHANTEL MCKEON WILL CANCEL IR CONSULT
--- NOTE | 2019-10-19 19:30 | NUR ---
walking rounds complete, pt stable at shift change. report given to oncoming nurse.
[2019-10-19] MEDS: MORPHINE SULFATE 2 MG/ML SYR 1ML IV PRN (20:45)
[2019-10-20] VITALS (7 sets, daily range): BP systolic 98–121; BP diastolic 54–82
--- NOTE | 2019-10-20 04:31 | History and Physical ---
PRIMARY CARE DOCTOR: Dr. Perez at [facility]. CHIEF COMPLAINT: Lower back pain, generalized weakness, and pelvic pain. HISTORY OF PRESENT ILLNESS: This is a 74-year-old male with past medical history of cirrhosis status post TIPS, COPD, hepatitis C, hypothyroidism, and hypotension, presented to the ER with complaints of generalized weakness, back pain, status post fall two months ago. According to his , he has not been taking his cirrhosis medications as prescribed, and also has had a fall three months ago, which caused him to have a compression fracture, he is following up with [facility] and has outpatient kyphoplasty planned at [facility]. According to , he has been intermittently confused, not eating well, still drinking beer. He reports up to 3 beers a day, but she states is more. He has been complaining of pelvic pain, usually self-catheterized himself as needed and she feels that he may have UTI. In the ER, CT of abdomen and pelvis showed cirrhotic liver with TIPS in place, L1 vertebral body compression deformity and showed cystitis. He was started on Rocephin and cultures sent. Admitted for further evaluation. PAST MEDICAL HISTORY: 1. Cirrhosis, status post TIPS. 2. Chronic obstructive pulmonary disease. 3. Hypothyroidism. 4. Hepatitis C. 5. Hypotension. PAST SURGICAL HISTORY: 1. TIPS. 2. Left BKA. 3. Face reconstruction surgeries and left eye surgeries. FAMILY MEDICAL HISTORY: Mother has diabetes. Does not know about father's medical conditions. SOCIAL HISTORY: He denies any tobacco or illicit drug use, but reports he has an alcohol dependent, drinks 2-3 beers per day, but reports drinks much more than that. ALLERGIES: PREGABALIN. REVIEW OF SYSTEMS: Twelve systems review were negative except as noted in HPI. PHYSICAL EXAMINATION: VITAL SIGNS: Temperature 97.4, pulse is 86, respirations 18, blood pressure 106/66, pulse ox is 94% on 2 L of oxygen. GENERAL: No acute distress. HEENT: Normocephalic, atraumatic. NECK: Supple. LUNGS: Decreased breath sounds. CARDIOVASCULAR: Regular rate and rhythm. GI: Soft and nontender. NEUROLOGIC: Alert, awake, and oriented x3. Reported intermittent confusion. MUSCULOSKELETAL: Moves all extremities. Left BKA. SKIN: Dry. Right groin central line noted with small hematoma. PSYCH: Calm. LABORATORY DATA: WBC 8.4, hemoglobin 13.4, hematocrit 39.3, platelet 166. Sodium 136, potassium 3.6, creatinine 0.94, estimated GFR greater than 60. Lactic acid 1.1, calcium 8.2, total bilirubin 1.7, AST 24, ALT 17, alkaline phosphate 127. Troponin I 0.037, BNP is 65. Albumin 2.8. Lipase 34. TSH 1.55, PT 18.7, INR 1.46, APTT 40.3. Urine, slightly cloudy with small leukocyte esterase, wbc's of 6-10 K and with many bacteria. Urine culture shows Gram-negative bacillus. Blood culture negative. IMAGING: CT abdomen shows cystitis, cirrhosis, and L1 vertebral body compression deformity. Chest x-ray shows improvement of right multifocal pneumonia since last exam. IMPRESSION: 1. Generalized weakness with intermittent confusion. Ammonia level was within normal limits, likely due to urinary tract infection. Urine culture sent. Rocephin started. 2. Lower back pain due to L1 vertebral compression fracture. Noted on CT. Pain management as needed. wants to follow up with [facility], they have an appointment for surgery outpatient. 3. Urinary tract infection. Urine culture positive for Gram-negative bacillus. We will continue on Rocephin until final cultures come back. 4. History of cirrhosis, status post transjugular intrahepatic portosystemic shunt. We will resume home medication. Rifaximin and lactulose. 5. History of chronic obstructive pulmonary disease, without exacerbation. Neb treatments p.r.n. 6. Hypothyroidism. Resume Synthroid 50 mcg. TSH within normal limits. 7. History of hepatitis C. Follow up with his road advisor. 8. Gastroesophageal reflux disease. We will continue Protonix. 9. Alcohol use. Discussed cessation. 10. Deep venous thrombosis prophylaxis. SCDs for now, we will consider anticoagulation, if plans to stay in the hospital for a prolonged time. Dictated by MARGRET Stauffer Jame Mena MD MY/MODL /[id number]
[2019-10-20] MEDS: LEVOTHYROXINE SODIUM 50 MCG TAB PO SCH (05:50)
[2019-10-20] MEDS: CHLORDIAZEPOXIDE HCL 25 MG CAP PO SCH (05:50)
--- NOTE | 2019-10-20 07:38 | NUR ---
Patient up in bed eating breakfast, BP is 92/60 HR 168, Rechecked it HR is 169 and manual BP is 90/55 , Notified Dr Mena, new order recvd to do STAT EKG and telemetry, keep monitoring. not in acute distress
[2019-10-20] MEDS ORDERED: LACTATED RINGER'S 500 ML INJ NR (08:15)
--- NOTE | 2019-10-20 08:20 | NUR ---
PAGED DR. Reji DIAZ REGARDING NEW CONSULT PER DR. FUNES
--- NOTE | 2019-10-20 09:08 | NUR ---
CALL RECEIVED FROM DR. Reji DIAZ. ORDER READ BACK AND VERIFIED AND RECONFIRMED.
[2019-10-20] MEDS ORDERED: ADENOSINE 6 MG/2 ML VIAL IV NR ×3 (09:15→09:48)
--- NOTE | 2019-10-20 09:51 | NUR ---
RAPID IN PROGRESS. ED MD ORDERED 12 OF ADENOSINE TIMES 2. FIRST DOSE now(949) RESPONSE AT 0952. HEART RATE SLOWED. PATIENT TOLD TO TAKE DEEP BREATHS 53 BOLUS STARTED FOR BP 66/32 2ND 12 OF ADENOSINE GIVEN IV PUSH NOW (952) HEART RATE 156 HEART RATE 98 AFTER PUSH HEART RATE 99 AT [address] FUNES AT BEDSIDE [address] SHANTEL DIAZ IS ALREADY NOTIFIED
[2019-10-20] MEDS: LORAZEPAM INJ 2 MG/ML VIAL IV PRN (12:04)
[2019-10-20] MEDS: CEFTRIAXONE SOD 1 GM/NS 50 ML 50 ML IV SCH (12:19)
[2019-10-20] MEDS: FUROSEMIDE 40 MG TAB PO SCH ×2 (12:19→17:36)
[2019-10-20] MEDS: RIFAXIMIN 550 MG TABLET PO SCH (12:19)
[2019-10-20] MEDS: PANTOPRAZOLE SOD 40 MG TABEC PO SCH ×2 (12:19→17:36)
--- NOTE | 2019-10-20 13:24 | NUR ---
Patient resting in bed, not in any distress this time, Dfib Patch ON, KEEP MONITORING, AT BED SIDE
[2019-10-20] MEDS: METOPROLOL TARTRATE 25 MG TAB PO SCH ×2 (14:44→17:36)
[2019-10-20] MEDS: MORPHINE SULFATE 2 MG/ML SYR 1ML IV PRN (15:03)
[2019-10-20] MEDS: DOXYCYCLINE HYCLATE TABLET 100 MG TAB PO SCH (17:36)
--- NOTE | 2019-10-20 18:27 | NUR ---
PATIENT RESTING IN BED, NOT IN ANY DISTRESS, DR Reji DIAZ HAD ROUNDS
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
--- NOTE | 2019-10-20 19:15 | Consultation ---
DATE OF CONSULTATION: 10/20/2019 Initial EP Consultation REASON FOR CONSULTATION: Supraventricular tachycardia. HISTORY OF PRESENT ILLNESS: Mr. Amanuel Cruz is a 74-year-old male with history of hypertension, who presents to the hospital after having abdominal pain. The patient was noted to have supraventricular tachycardia with heart rate approximately in the 170s narrow complex and mid RP interval. The patient received adenosine x2 with termination of his supraventricular tachycardia. The patient's states that he presented with abdominal pain and was noted to have urinary tract infection. She has not noted that he has had any problems with rhythm of the heart or heart problems that she is known of. REVIEW OF SYSTEMS: The patient currently denies any fevers, chills, lightheadedness, dizziness, discharge from the eyes, nose, mouth, swollen of lymph nodes in the neck or groin, chest pains, palpitations, shortness of breath, coughing, abdominal pain, nausea, vomiting, dysuria, hematuria, swelling in the joints, joint pain, numbness, tingling, weakness, swelling in the legs or arms, skin rashes, ulcers, depression or SI. PAST MEDICAL HISTORY: As noted above. SOCIAL HISTORY: The patient denies smoking any cigarettes, drink alcohol, or use any illicit drugs. SURGICAL HISTORY: No cardiac surgeries. FAMILY HISTORY: No significant family history of early cardiac or sudden arrhythmias. MEDICATIONS: Please see MAR. ALLERGIES: NO KNOWN DRUG ALLERGIES. PHYSICAL EXAMINATION: VITAL SIGNS: Temperature is afebrile. Blood pressure is 130s/70s, respiratory rate 12. Currently sinus in the 90s. GENERAL: No acute distress. The patient currently is slightly confused. HEENT: Normocephalic, atraumatic. Pupils are equal and reactive to light. LYMPH NODES: No supraclavicular or submandibular lymphadenopathy appreciated. CVS: S1, S2. Regular rate and rhythm. GI: Abdomen is soft and nontender. : No bladder fullness or CVA tenderness. MUSCULOSKELETAL: No effusions or erythema noted in the knees or elbows bilaterally. NEURO: Moves all extremities spontaneously. No focal deficits. EXTREMITIES: No edema in lower extremities or upper extremities bilaterally. SKIN: No ulcers or rash. The patient does have multiple tattoos on the extremities. PSYCH: Mood is normal. The patient is not answering questions appropriately. LABORATORY DATA: Noted. EKG of the SVT demonstrates a mid RP tachycardia with narrow complex. Heart rate approximately to 170. ASSESSMENT AND PLAN: Mr. Cruz is a 74-year-old male with history as noted above, who presents to the hospital with abdominal pain, noted to have urinary tract infection. Also, seem to have supraventricular tachycardia with characteristics as described above. The tachycardia did terminate with adenosine x2. Differential can include AVNRT as well as AVRT, less likely atrial tachycardia. I discussed with the patient's the possible treatment modalities first. We can start the patient on metoprolol and also consider antiarrhythmic if metoprolol is not maintaining sinus rhythm. I have discussed with her the options of an electrophysiology study and possible ablation, which can be performed on an outpatient basis. If the patient continues to have multiple episodes of supraventricular tachycardia requiring therapy, we can also consider doing an electrophysiology study with ablation while the patient is hospitalized. However, he would require transfer to a higher level facility. This plan has been discussed with the who is agreeable. Thank you very much for allowing me to participate in this patient's care. Please feel free to call if questions. DO MOHSEN JASSO/JIGAR /[id number] MTDAllen
[2019-10-20] MEDS ORDERED: VANCOMYCIN 1GM/NS 250 ML 250 ML IV ONE (20:15)
[2019-10-20] MEDS: CIPROFLOXACIN 500 MG TAB PO SCH (21:18)
--- NOTE | 2019-10-20 22:20 | Progress Note ---
DATE: 10/20/2019 CONSULTANTS: 1. Dr. Lowry with Cardiology. 2. Dr. Tyler with EP. CHIEF COMPLAINT: Abdominal pain. SUBJECTIVE: The patient had an episode of SVT with a heart rate in the 160s, [place] was initiated, was given adenosine x2. He was started on metoprolol and currently sinus rhythm with a heart rate in the 60s. He denies any chest pain, shortness of breath, fever, chills, nausea, or vomiting. He reports abdominal pain is resolved. PHYSICAL EXAMINATION: VITAL SIGNS: Temperature 97.6, pulse 71, respirations 18, blood pressure 103/54, pulse ox 100% on 3 L via nasal cannula. GENERAL: No acute distress. HEENT: Normocephalic, atraumatic. NECK: Supple. LUNGS: With decreased breath sounds. CARDIOVASCULAR: Regular rate and rhythm. GI: Soft and nontender. NEUROLOGIC: Alert, awake, and oriented x3. MUSCULOSKELETAL: Moves all extremities, left BKA. SKIN: Dry, right groin. Central line in place with small hematoma. PSYCH: Calm. IMPRESSION: 1. Generalized weakness with intermittent confusion. Likely due to urinary tract infection. We will change Rocephin to Cipro and doxycycline. 2. Urinary tract infection. Urine positive for Morganella morganii and enterococcus species. Pending ID and sensitivity. We will change antibiotics to Cipro and doxycycline. 3. Lower back pain due to L1 vertebral compression fracture. He has planned outpatient surgery per . Pain management as needed. 4. History of alcoholic cirrhosis, status post TIPS. We will continue rifaximin and lactulose. 5. History of chronic obstructive pulmonary disease without exacerbation and stable. Nebs as needed. 6. Hypothyroidism. Resume Synthroid at 50 mcg. TSH within normal limits. 7. History of hepatitis C. Follow up with GI. 8. Gastroesophageal reflux disease. Continue PPI. 9. Alcohol abuse. The patient is still drinking heavily. Discussed cessation. Ativan p.r.n. and assess for withdrawals. 10. Deep venous thrombosis prophylaxis. SCDs. 11. Episode of supraventricular tachycardia. Adenosine IV, given x2. Cardiology and EP consulted. He is now in normal sinus rhythm. We will continue beta-blockers for arrhythmias. We will monitor on tele. If episodes reoccur, may consider further workup per EP. PLAN: To continue current treatment, tele monitor, we will await on final urine cultures and we will anticipate discharge home in the morning. Dictated by Milagros Bond, ANP MD DEANDRE Zaldivar/MODL /[id number] MTDD
[2019-10-21] VITALS: BP 99/72
[2019-10-21] MEDS: MORPHINE SULFATE 2 MG/ML SYR 1ML IV PRN (00:10)
[2019-10-21 04:00] VITALS: BP 110/77
[2019-10-21] MEDS: LORAZEPAM INJ 2 MG/ML VIAL IV PRN (05:29)
[2019-10-21] MEDS: LEVOTHYROXINE SODIUM 50 MCG TAB PO SCH (05:29)
[2019-10-21 05:44] LABS: BASOPHILS % 0.4 % (0.0-1.0); EOSINOPHILS # (AUTO) 0.3 (0.0-0.4); EOSINOPHILS % 3.7 % (0.0-6.0); HEMATOCRIT 37.3 % (38.2-49.6); HEMOGLOBIN 12.7 g/dL (14.0-18.0); LYMPHOCYTES # (AUTO) 2.5 (1.0-3.2); LYMPHOCYTES % 34.3 % (18.0-39.1); MEAN CORPUSCULAR HEMOGLOBIN 35.8 pg (28-32); MEAN CORPUSCULAR VOLUME 105.1 fL (81-99); NEUTROPHILS # (AUTO) 3.5 (2.1-6.9); NEUTROPHILS % 47.3 % (38.7-80.0); PLATELET COUNT 141 x10e3/uL (140-360); RED BLOOD COUNT 3.55 x10e6/uL (4.3-5.7); RED CELL DISTRIBUTION WIDTH 13.3 % (11.7-14.4)
[2019-10-21 06:22] LABS: ANION GAP 14.3 mmol/L (8-16); CALCIUM 8.3 mg/dL (8.4-10.2); CARBON DIOXIDE 24 mmol/L (22-29); CHLORIDE 99 mmol/L (98-107); CREATININE, SERUM 1.03 mg/dL (0.72-1.25); EST GLOMERULAR FILTRATION RATE > 60 ML/MIN (60-); GLUCOSE 85 mg/dL (74-118); POTASSIUM 3.3 mmol/L (3.5-5.1); SODIUM 134 mmol/L (136-145)
[2019-10-21 07:14] LABS: BLOOD UREA NITROGEN 14 mg/dL (7-26); BUN/CREATININE RATIO 14 (6-25)
[2019-10-21 07:46] VITALS: BP 117/89
[2019-10-21 08:12] VITALS: BP 117/89
--- NOTE | 2019-10-21 08:53 | NUR ---
unable to get am meds in due to confused state.
--- NOTE | 2019-10-21 09:08 | NUR ---
states patient is a heavy drinker. confusion may be related to alcohol withdraw
[2019-10-21] MEDS: RIFAXIMIN 550 MG TABLET PO SCH (09:09)
[2019-10-21] MEDS: PANTOPRAZOLE SOD 40 MG TABEC PO SCH (09:09)
[2019-10-21] MEDS: FUROSEMIDE 40 MG TAB PO SCH (09:09)
[2019-10-21] MEDS: CIPROFLOXACIN 500 MG TAB PO SCH (09:09)
[2019-10-21] MEDS: DOXYCYCLINE HYCLATE TABLET 100 MG TAB PO SCH (09:09)
[2019-10-21] MEDS: METOPROLOL TARTRATE 25 MG TAB PO SCH (09:10)
[2019-10-21] MEDS ORDERED: CHLORDIAZEPOXIDE HCL 25 MG CAP PO NR (10:00)
[2019-10-21] MEDS ORDERED: LOPRESSOR25 MG PO (10:34)
[2019-10-21] MEDS ORDERED: CIPROFLOXACIN500 MG PO (10:34)
[2019-10-21] MEDS ORDERED: DOXYCYCLINE HY100 MG PO (10:34)
[2019-10-21 11:47] VITALS: BP 89/69
--- NOTE | 2019-10-21 21:20 | Discharge Summary ---
PRIMARY CARE PHYSICIAN: Dr. Perez at [facility]. FINAL DISCHARGE DIAGNOSES: 1. Generalized weakness and intermittent confusion due to urinary tract infection. 2. Lower back pain due to L1 vertebral compression fracture. 3. History of alcohol cirrhosis status post TIPS. 4. History of chronic obstructive pulmonary disease without exacerbation. 5. Hypothyroidism. 6. History of hep C. 7. Gastroesophageal reflux disease. 8. Alcohol abuse. 9. Supraventricular tachycardia, nonsustained. CONSULTANTS: 1. Dr. Lowry with Cardiology. 2. Dr. Tyler with EP. PROCEDURES: None. HISTORY: Per HPI. HOSPITAL COURSE: This is a 74-year-old male with past medical history of alcoholic cirrhosis, COPD, hypothyroidism, hep C, GERD, presented to the ER with complaints of increased weakness and intermittent confusion. He was noted to have urinary tract infection, started on Rocephin while awaiting on cultures. Urine culture was positive for Morganella morganii and enterococcus. He is started on Cipro based on sensitivity. His reports that he has an appointment outpatient to have his lumbar spine surgery next week. She reports he is still drinking alcohol heavily. So, he was started on Librium. He had an episode of SVT, SHIRT MARKER was called and was given adenosine IV x2. He converted to sinus rhythm. Cardiology and EP were consulted, he was started on beta blockers and advised to follow up as outpatient for further evaluation and intervention as needed. Discussed with and patient regarding the importance of alcohol cessation. She reports that she is unable to get him to stop drinking, and will follow up with PCP and Cardiology for further workup. PHYSICAL EXAMINATION: VITAL SIGNS: Temperature 97.8, pulse is 63, respirations 18, blood pressure 89/69, pulse is 98 on room air. GENERAL: No acute distress. LUNGS: With decreased breath sounds. CARDIOVASCULAR: Regular rate and rhythm. GI: Soft and nontender. NEUROLOGIC: Alert, awake, and oriented x2-3 with intermittent confusion. MUSCULOSKELETAL: Left BKA. SKIN: Dry. CONDITION AT DISCHARGE: Stable and improved. DISCHARGE MEDICATIONS: Please see medication reconciliation list. FOLLOWUP: Follow up with PCP, Cardiology and EP. TOTAL DISCHARGE TIME: 33 minutes. Dictated by MARGRET Stauffer Jame Mena MD MY/MODL /[id number] cc: [facility] [place]
== END 2019-10-21 13:24 | disposition home or self-care (01) | DRG 689 ==
LOC: ER 17:44 → ERHOLD 23:22 → MED/SURG 23:59
PROVIDERS: ADMIT Internal Medicine; ATTEND Internal Medicine
PROC: 06HY33Z Insertion of Infusion Device into Lower Vein, Percutaneous Approach (ICD-10-PCS; principal; 2019-10-18)
DX: N39.0 Urinary tract infection, site not specified (principal); G93.41 Metabolic encephalopathy; M48.54XA Collapsed vertebra, not elsewhere classified, thoracic region, initial encounter for fracture; I47.1 Supraventricular tachycardia; K70.30 Alcoholic cirrhosis of liver without ascites; J44.9 Chronic obstructive pulmonary disease, unspecified; E03.9 Hypothyroidism, unspecified; Z86.19 Personal history of other infectious and parasitic diseases; B95.2 Enterococcus as the cause of diseases classified elsewhere; Z91.81 History of falling; K74.60 Unspecified cirrhosis of liver; B19.20 Unspecified viral hepatitis C without hepatic coma; Z89.512 Acquired absence of left leg below knee; K21.9 Gastro-esophageal reflux disease without esophagitis
CPT/HCPCS: 36415; 36555; 71045; 74177; 80048; 80053; 81001; 82140; 82550; 82553; 83605; 83690; 83735; 83880; 84443; 84484; 85025; 85610; 85730; 87040; 87086; 87186; 93005; 93306; 99284; J0153; J0696; J2060; J2270; J2405; J3370; J7050; J7121; Q9967